=== PATIENT | female | born 1945 | race Caucasian/White ===

== ENCOUNTER 2018-02-11 17:58 | Inpatient (IN) | payer MEDICARE, MEDICAID ==
--- NOTE | 2018-02-11 19:49 | ED Physician Chart ---
ED Chief Complaint/HPI - Patient Information Date Seen:: 02/11/18 Time Seen:: 07:05 Chief Complaint:: PSYCH History of Present Illness:: 72 YR OLD FEMALE FROM COUNT INCLUDES THE [facility] FOR AGITATION HX OF SCHIZOAFFECTIVE DISORDER BIPOLAR TYPE Allergies:: Allergies Allergy/AdvReac Type Severity Reaction Status Date / Time No Known Allergies Allergy Verified 02/11/18 18:06 Vitals:: Vital Signs - 8 hr 02/11/18 18:06 Temp 99.0 F HR 110 RR 19 BP 112/80 O2 Sat % 97 Historian:: Medical Records ED Review of Systems - Review of Systems General/Constitutional: No fever Skin: No skin lesions Head: No headache Eyes: No loss of vision ENT: No earache Neck: No neck pain Cardio Vascular: No chest pain Pulmonary: No SOB GI: No vomiting G/U: No dysuria Supervisory Clerk: No abnormal vaginal bleed Musculoskeletal: No bone or joint pain Endocrine: No polyuria Psychiatric: Prior psych history Hematopoietic: Bruising, No bruising Allergic/Immuno: No urticaria Neurological: No syncope ED Past Medical History - Past Medical History Past Medical History: Thyroid disorder Family History: Heart disease Psychiatricy History: Depression, Schizophrenia, Bipolar Medication: Reviewed ED Physical Exam - Physical Examination General/Constitutional: Alert Head: Atraumatic Eyes: Lids, conjuctiva normal Skin: Nl inspection ENMT: External ears, nose nl Neck: Nontender Respiratory: Nl effort/Exclusion Cardio Vascular: RRR GI: No tenderness/rebounding/guarding : No CVA tenderness Extremities: No tenderness or effusion Other Neuro/Psych comments:: ALERT TO NAME DOES FOLLOW SOME COMMANDS LIKE LIFT ARMS LEGS Misc: Normal back ED Labs/Radiology/EKG Results - EKG Interpretations EKG Time:: 07:45 Rate & Rhythm: SINUS TACH 103 Brothers: OK Intervals: OK ED Assessment - Assessment General Assessment: PSYCHOSIS WITH AGITATION ED Septic Shock - . Is Septic Shock (SBP<90, OR Lactate>4 mmol\L) present?: No - <6hrs of presentation: Vital Signs: Vital Signs - 8 hr 02/11/18 18:06 Temp 99.0 F HR 110 RR 19 BP 112/80 O2 Sat % 97 ED Discharge Plan - Patient Disposition Admit/Discharge/Transfer: Acute Care w/in this hosp Instructions: Psychosis
[2018-02-11 20:11] LABS: % BASOPHILS 0.2 % (0.0-2.0); % EOSINOPHILS 0.7 % (0.0-5.0); % LYMPHOCYTES 16.6 % (20.0-50.0); % MONOCYTES 12.9 % (2.0-10.0); % NEUTROPHILS 69.6 % (40.0-80.0); EOSINOPHILE ABSOLUTE 0.1 Th/cmm (0.1-0.4); HEMATOCRIT 41.9 % (41.0-60); HEMOGLOBIN 14.4 gm/dL (12-16); LYMPHOCYTE ABSOLUTE 1.3 Th/cmm (1.5-3.0); MEAN CELL VOLUME 92.7 fl (81-100); MEAN CORPUSCULAR HEMOGLOBIN 31.8 pg (27.0-31.0); MEAN CORPUSCULAR HGB CONC 34.3 pg (28.0-36.0); MEAN PLATELET VOLUME 7.7 fl; NEUTROPHILE ABSOLUTE 5.5 Th/cmm (1.8-8.0); PLATELET COUNT 207 Th/cmm (150-400); RED BLOOD COUNT 4.52 Mil/cmm (3.80-5.20); RED CELL DISTRIBUTION WIDTH 12.8 % (11.5-20.0); WHITE BLOOD COUNT 7.9 Th/cmm (4.8-10.8)
[2018-02-11 20:27] LABS: ACETAMINOPHEN < 10.0 ug/mL (10.0-30.0); ALB/GLOB RATIO 1.3 (1.0-1.8); ALBUMIN 3.9 gm/dL (3.7-5.3); ALKALINE PHOSPHATASE 64 U/L (34-104); BILIRUBIN,TOTAL 0.3 mg/dL (0.3-1.0); BUN - UREA NITROGEN 33 mg/dL (7-25); CALCIUM SERUM 9.3 mg/dL (8.6-10.3); CARBON DIOXIDE 29.1 mEq/L (21.0-31.0); CHLORIDE 101 mEq/L (98-107); CREATININE - SERUM 0.8 mg/dL (0.6-1.2); GLUCOSE 97 mg/dL (70-105); POTASSIUM SERUM 4.1 mEq/L (3.5-5.1); SGOT 17 U/L (13-39); SGPT/ALT 15 U/L (7-52); SODIUM SERUM 137 mEq/L (136-145); TOTAL PROTEIN,SERUM 6.8 gm/dL (6.0-8.3)
[2018-02-11 20:33] LABS: SALICYLATES (ASPIRIN) < 25.0 mg/L (30.0-100.0)
[2018-02-11 21:58] VITALS: BP 150/85
[2018-02-11] MEDS ORDERED: Fleet Enema 135 mL RC PRN (22:04)
[2018-02-11] MEDS ORDERED: Magnesium Hydroxide (MOM) 30 mL UDC PO PRN (22:04)
--- NOTE | 2018-02-12 08:31 | Diagnostic Imaging Report ---
Portable chest x-ray HISTORY: Pain The heart appears enlarged. Atherosclerotic calcification seen through the aorta. No acute focal bony processes. Scoliosis and degenerative changes seen to the spine. IMPRESSION: 1. Allowing for a poor inspiration, no acute focal pulmonary processes 2. Cardiomegaly with atherosclerotic vascular changes
[2018-02-12] MEDS ORDERED: Non-Formulary Item 1 EA (Cranberry Fruit Extract [Cranberry] 425 MG) PO SCH (09:00)
[2018-02-12] MEDS: Levothyroxine 0.075 Mg Tab PO SCH (09:12)
[2018-02-12] MEDS: Multivitamin w/ Minerals Tab PO SCH (09:12)
[2018-02-12] MEDS ORDERED: Non-Formulary Item 1 EA (Melatonin [Melatonin] 3 MG) PO SCH (21:00)
--- NOTE | 2018-02-13 02:18 | Psychosocial Evaluation ---
DATE OF SERVICE: JUSTIFICATION FOR HOSPITALIZATION: The patient is confused, disoriented, agitation, history of schizoaffective, trying to disrobe. CHIEF COMPLAINT: "The food is wonderful here." HISTORY OF PRESENT ILLNESS: A 72-year-old female, apparent history of schizoaffective, confused, disoriented, not answering most questions, just ruminative about how good the food is. Staff noting she is trying to disrobe, poorly oriented, does not know where she is. She states she is here because "I was having problems with my emotions." The patient agitated, at times unruly requiring p.r.n. Ativan. Noted to be disruptive and aggressive at her place of residence. PAST PSYCHIATRIC HISTORY: Schizoaffective per documentation, possible history of dementia. FAMILY HISTORY: Noncontributory. SOCIAL HISTORY: The patient states that she was living in a [id number], but her address is currently noted to be in [place]. It is unclear what her social circumstances are, if there is any family involved. Unclear drugs, alcohol, or tobacco. Not answering most questions. MEDICAL HISTORY: Please see full H and P. MEDICATIONS: Noted including doses and frequencies. She is currently on Depakote and p.r.n. Ativan. MENTAL STATUS EXAMINATION: Stated age. Fair eye contact. Speech, decreased content. Disoriented. Mood "fine." Affect flat. Thought processes were disengaged disoriented. No overt SI or HI. No overt psychotic symptoms. The patient ruminative, however. Insight and judgment diminished. Poor impulse control. PROVISIONAL DIAGNOSIS: Schizoaffective disorder, unspecified; rule out dementia. Under medical, please see full H and P. Also, anxiety, unspecified. ESTIMATED LENGTH OF STAY: 5-7 days. ASSESSMENT: The patient requiring hospitalization, combative, disruptive, unruly, impulsive, unpredictable. PLAN: We will try to increase collateral. TREATMENT PLAN: Includes group as well as milieu therapy. CONDITIONS FOR DISCHARGE: Improved mood, improved affect, better control of any agitation, or combative symptoms. JOB# [id number]
[2018-02-13] MEDS: Levothyroxine 0.075 Mg Tab PO SCH (08:35)
[2018-02-13] MEDS: Multivitamin w/ Minerals Tab PO SCH (08:35)
--- NOTE | 2018-02-13 15:58 | General Progress Note ---
Subjective - Review of Systems Events since last encounter: patient is confused with h/o eschizophrenia Objective - Results Result Diagrams: 02/11/18 20:03 02/11/18 20:03 Recent Labs: Laboratory Last Values WBC 7.9 Th/cmm (4.8-10.8) 02/11/18 20:03 RBC 4.52 Mil/cmm (3.80-5.20) 02/11/18 20:03 Hgb 14.4 gm/dL (12-16) 02/11/18 20:03 Hct 41.9 % (41.0-60) 02/11/18 20:03 MCV 92.7 fl (81-100) 02/11/18 20:03 MCH 31.8 pg (27.0-31.0) H 02/11/18 20:03 MCHC Differential 34.3 pg (28.0-36.0) 02/11/18 20:03 RDW 12.8 % (11.5-20.0) 02/11/18 20:03 Plt Count 207 Th/cmm (150-400) 02/11/18 20:03 MPV 7.7 fl 02/11/18 20:03 Neutrophils % 69.6 % (40.0-80.0) 02/11/18 20:03 Lymphocytes % 16.6 % (20.0-50.0) L 02/11/18 20:03 Monocytes % 12.9 % (2.0-10.0) H 02/11/18 20:03 Eosinophils % 0.7 % (0.0-5.0) 02/11/18 20:03 Basophils % 0.2 % (0.0-2.0) 02/11/18 20:03 Sodium 137 mEq/L (136-145) 02/11/18 20:03 Potassium 4.1 mEq/L (3.5-5.1) 02/11/18 20:03 Chloride 101 mEq/L (98-107) 02/11/18 20:03 Carbon Dioxide 29.1 mEq/L (21.0-31.0) 02/11/18 20:03 Anion Gap 11.0 (7.0-16.0) 02/11/18 20:03 BUN 33 mg/dL (7-25) H 02/11/18 20:03 Creatinine 0.8 mg/dL (0.6-1.2) 02/11/18 20:03 Est GFR ( Amer) TNP 02/11/18 20:03 Est GFR (Non-Af Amer) TNP 02/11/18 20:03 BUN/Creatinine Ratio 41.3 02/11/18 20:03 Glucose 97 mg/dL (70-105) 02/11/18 20:03 Calcium 9.3 mg/dL (8.6-10.3) 02/11/18 20:03 Total Bilirubin 0.3 mg/dL (0.3-1.0) 02/11/18 20:03 AST 17 U/L (13-39) 02/11/18 20:03 ALT 15 U/L (7-52) 02/11/18 20:03 Alkaline Phosphatase 64 U/L (34-104) 02/11/18 20:03 Total Protein 6.8 gm/dL (6.0-8.3) 02/11/18 20:03 Albumin 3.9 gm/dL (3.7-5.3) 02/11/18 20:03 Globulin 2.9 gm/dL 02/11/18 20:03 Albumin/Globulin Ratio 1.3 (1.0-1.8) 02/11/18 20:03 Salicylates < 25.0 mg/L (30.0-100.0) L 02/11/18 20:03 Acetaminophen < 10.0 ug/mL (10.0-30.0) L 02/11/18 20:03 - Physical Exam Vitals and I&O: Vital Signs Temp 97.7 F 02/13/18 05:33 Pulse 67 02/13/18 08:34 Resp 19 02/13/18 05:33 BP 139/77 02/13/18 08:34 Pulse Ox 96 02/13/18 05:33 Intake & Output 02/12/18 02/13/18 02/13/18 18:59 06:59 18:59 Intake Total 1300 480 Balance 1300 480 Intake: Oral 1300 480 Other: # Voids 3 2 # Bowel Movements 0 Active Medications: Current Medications Acetaminophen (Tylenol) 650 mg PO Q6HR PRN PRN Reason: MILD PAIN Stop: 04/12/18 22:03 Bisacodyl (Dulcolax 10 Mg Supp) 10 mg RC DAILY PRN PRN Reason: IF MOM INEFFECTIVE Stop: 04/12/18 22:03 Brimonidine Tartrate (Alphagan 0.2% Ophth Soln) 1 drop EACH EYE BID [facility] Stop: 04/13/18 08:59 Last Admin: 02/12/18 17:02 Dose: 1 drop Cholecalciferol (Vitamin D3) 1,000 iu PO DAILY [facility] Stop: 04/13/18 08:59 Last Admin: 02/13/18 08:33 Dose: 1,000 iu Divalproex Sodium (Depakote Dr) 1,250 mg PO HS [facility]; Protocol Stop: 04/13/18 20:59 Last Admin: 02/12/18 20:38 Dose: 1,250 mg Docusate Sodium (Colace) 250 mg PO BID [facility] Stop: 04/13/18 08:59 Last Admin: 02/13/18 08:33 Dose: 250 mg Folic Acid (Folate) 1 mg PO DAILY [facility] Stop: 04/13/18 08:59 Last Admin: 02/13/18 08:33 Dose: 1 mg Hydroxyzine HCl (Atarax) 25 mg PO Q6HR PRN; Protocol PRN Reason: ITCHINESS Stop: 04/12/18 22:03 Latanoprost (Xalatan 0.005% Ophth Soln) 1 drop EACH EYE HS [facility] Stop: 04/13/18 20:59 Last Admin: 02/12/18 20:37 Dose: 1 drop Levothyroxine Sodium (Synthroid) 0.075 mg PO DAILY [facility] Stop: 04/13/18 08:59 Last Admin: 02/13/18 08:35 Dose: 0.075 mg Lisinopril (Zestril) 10 mg PO DAILY [facility] Stop: 04/13/18 08:59 Last Admin: 02/13/18 08:34 Dose: 10 mg Lorazepam (Ativan) 0.5 mg PO Q4HR PRN; Protocol PRN Reason: Anxiety Stop: 03/13/18 21:58 Last Admin: 02/13/18 08:32 Dose: 0.5 mg Magnesium Hydroxide (Milk Of Magnesia) 30 ml PO HS PRN PRN Reason: Constipation Stop: 04/12/18 22:03 Naproxen (Naprosyn) 500 mg PO Q6H PRN PRN Reason: MODERATE PAIN Stop: 04/12/18 22:03 Nitroglycerin (Nitrostat) 0.4 mg SL PRN PRN PRN Reason: CHEST PAIN X3 Stop: 04/12/18 22:03 Sodium Phosphate (Fleet Enema) 135 ml RC Q48H PRN PRN Reason: IF DULCOLAX INEFFECTIVE Stop: 04/12/18 22:03 Zolpidem Tartrate (Ambien) 5 mg PO HS PRN PRN Reason: Insomnia Stop: 04/12/18 21:58 Last Admin: 02/12/18 20:37 Dose: 5 mg Assessment/Plan - Problem List Patient Problems: All Active Problems AGGRESSIVE AND DISRUPTIVE BEHAVIOR (Acute)
--- NOTE | 2018-02-13 16:35 | History & Physical ---
ADMIT DATE: 02/12/2018 HISTORY OF PRESENT ILLNESS: This is a 72-year-old female ____ patient, having lot of agitation. The patient is known to have history of schizoaffective disorder, was brought to the ER and was admitted from [facility]. REVIEW OF SYSTEMS: No fever, no chills, no headache. Systems review is negative. PAST MEDICAL HISTORY: Thyroid disorder, depression, schizophrenia, and bipolar disorder. PHYSICAL EXAMINATION: GENERAL: Alert and oriented. HEAD: Normal. ENT: Normal. NECK: Supple, nontender. LUNGS: Clear. CARDIOVASCULAR SYSTEM: S1, S2 heard. ABDOMEN: Soft. Bowel sounds are heard. CENTRAL NERVOUS SYSTEM: Grossly normal. DIAGNOSTIC DATA: EKG showed sinus tachycardia. DIAGNOSES: Acute agitation, history of thyroid disorder, history of depression, history of schizoaffective disorder. PLAN: The patient was admitted and I will follow the patient medically and I am going to go ahead and continue her Tylenol, Dulcolax, and vitamin 3 and clonidine p.r.n. dosage. JOB# [id number]
[2018-02-14] MEDS: Multivitamin w/ Minerals Tab PO SCH (09:59)
[2018-02-14] MEDS: Levothyroxine 0.075 Mg Tab PO SCH (09:59)
--- NOTE | 2018-02-14 10:43 | General Progress Note ---
Subjective - Review of Systems Events since last encounter: 72 year old female awake and alert. patient h/o schizophrenia depression Objective - Results Result Diagrams: 02/11/18 20:03 02/11/18 20:03 Recent Labs: Laboratory Last Values WBC 7.9 Th/cmm (4.8-10.8) 02/11/18 20:03 RBC 4.52 Mil/cmm (3.80-5.20) 02/11/18 20:03 Hgb 14.4 gm/dL (12-16) 02/11/18 20:03 Hct 41.9 % (41.0-60) 02/11/18 20:03 MCV 92.7 fl (81-100) 02/11/18 20:03 MCH 31.8 pg (27.0-31.0) H 02/11/18 20:03 MCHC Differential 34.3 pg (28.0-36.0) 02/11/18 20:03 RDW 12.8 % (11.5-20.0) 02/11/18 20:03 Plt Count 207 Th/cmm (150-400) 02/11/18 20:03 MPV 7.7 fl 02/11/18 20:03 Neutrophils % 69.6 % (40.0-80.0) 02/11/18 20:03 Lymphocytes % 16.6 % (20.0-50.0) L 02/11/18 20:03 Monocytes % 12.9 % (2.0-10.0) H 02/11/18 20:03 Eosinophils % 0.7 % (0.0-5.0) 02/11/18 20:03 Basophils % 0.2 % (0.0-2.0) 02/11/18 20:03 Sodium 137 mEq/L (136-145) 02/11/18 20:03 Potassium 4.1 mEq/L (3.5-5.1) 02/11/18 20:03 Chloride 101 mEq/L (98-107) 02/11/18 20:03 Carbon Dioxide 29.1 mEq/L (21.0-31.0) 02/11/18 20:03 Anion Gap 11.0 (7.0-16.0) 02/11/18 20:03 BUN 33 mg/dL (7-25) H 02/11/18 20:03 Creatinine 0.8 mg/dL (0.6-1.2) 02/11/18 20:03 Est GFR ( Amer) TNP 02/11/18 20:03 Est GFR (Non-Af Amer) TNP 02/11/18 20:03 BUN/Creatinine Ratio 41.3 02/11/18 20:03 Glucose 97 mg/dL (70-105) 02/11/18 20:03 Calcium 9.3 mg/dL (8.6-10.3) 02/11/18 20:03 Total Bilirubin 0.3 mg/dL (0.3-1.0) 02/11/18 20:03 AST 17 U/L (13-39) 02/11/18 20:03 ALT 15 U/L (7-52) 02/11/18 20:03 Alkaline Phosphatase 64 U/L (34-104) 02/11/18 20:03 Total Protein 6.8 gm/dL (6.0-8.3) 02/11/18 20:03 Albumin 3.9 gm/dL (3.7-5.3) 02/11/18 20:03 Globulin 2.9 gm/dL 02/11/18 20:03 Albumin/Globulin Ratio 1.3 (1.0-1.8) 02/11/18 20:03 Salicylates < 25.0 mg/L (30.0-100.0) L 02/11/18 20:03 Acetaminophen < 10.0 ug/mL (10.0-30.0) L 02/11/18 20:03 - Physical Exam Vitals and I&O: Vital Signs Temp 98.9 F 02/13/18 18:12 Pulse 70 02/14/18 09:58 Resp 19 02/13/18 18:12 BP 112/62 02/14/18 09:58 Pulse Ox 96 02/13/18 18:12 Active Medications: Current Medications Acetaminophen (Tylenol) 650 mg PO Q6HR PRN PRN Reason: MILD PAIN Stop: 04/12/18 22:03 Aripiprazole (Abilify) 5 mg PO DAILY [facility]; Protocol Stop: 04/15/18 08:59 Last Admin: 02/14/18 09:59 Dose: Not Given Bisacodyl (Dulcolax 10 Mg Supp) 10 mg RC DAILY PRN PRN Reason: IF MOM INEFFECTIVE Stop: 04/12/18 22:03 Brimonidine Tartrate (Alphagan 0.2% Ophth Soln) 1 drop EACH EYE BID [facility] Stop: 04/13/18 08:59 Last Admin: 02/14/18 09:59 Dose: Not Given Cholecalciferol (Vitamin D3) 1,000 iu PO DAILY [facility] Stop: 04/13/18 08:59 Last Admin: 02/14/18 09:58 Dose: 1,000 iu Divalproex Sodium (Depakote Dr) 1,250 mg PO HS [facility]; Protocol Stop: 04/13/18 20:59 Last Admin: 02/13/18 20:37 Dose: 1,250 mg Docusate Sodium (Colace) 250 mg PO BID [facility] Stop: 04/13/18 08:59 Last Admin: 02/14/18 09:58 Dose: 250 mg Folic Acid (Folate) 1 mg PO DAILY [facility] Stop: 04/13/18 08:59 Last Admin: 02/14/18 09:58 Dose: 1 mg Hydroxyzine HCl (Atarax) 25 mg PO Q6HR PRN; Protocol PRN Reason: ITCHINESS Stop: 04/12/18 22:03 Latanoprost (Xalatan 0.005% Ophth Soln) 1 drop EACH EYE HS [facility] Stop: 04/13/18 20:59 Last Admin: 02/13/18 20:39 Dose: 1 drop Levothyroxine Sodium (Synthroid) 0.075 mg PO DAILY [facility] Stop: 04/13/18 08:59 Last Admin: 02/14/18 09:59 Dose: 0.075 mg Lisinopril (Zestril) 10 mg PO DAILY [facility] Stop: 04/13/18 08:59 Last Admin: 02/14/18 09:58 Dose: 10 mg Lorazepam (Ativan) 0.5 mg PO Q4HR PRN; Protocol PRN Reason: Anxiety Stop: 03/13/18 21:58 Last Admin: 02/14/18 02:49 Dose: 0.5 mg Magnesium Hydroxide (Milk Of Magnesia) 30 ml PO HS PRN PRN Reason: Constipation Stop: 04/12/18 22:03 Naproxen (Naprosyn) 500 mg PO Q6H PRN PRN Reason: MODERATE PAIN Stop: 04/12/18 22:03 Nitroglycerin (Nitrostat) 0.4 mg SL PRN PRN PRN Reason: CHEST PAIN X3 Stop: 04/12/18 22:03 Sodium Phosphate (Fleet Enema) 135 ml RC Q48H PRN PRN Reason: IF DULCOLAX INEFFECTIVE Stop: 04/12/18 22:03 Zolpidem Tartrate (Ambien) 5 mg PO HS PRN PRN Reason: Insomnia Stop: 04/12/18 21:58 Last Admin: 02/13/18 20:38 Dose: 5 mg General: Alert, No acute distress HEENT: Atraumatic Neck: Supple Cardiovascular: Regular rate, Normal S1, Normal S2 Lungs: Clear to auscultation, Other Abdomen: Bowel sounds Extremities: no Clubbing Neurological: Normal gait Psych/Mental Status: Other (depressed ) Assessment/Plan - Problem List Patient Problems: All Active Problems AGGRESSIVE AND DISRUPTIVE BEHAVIOR (Acute) Bipolar 1 disorder (Acute) F31.9 Depression (Acute) F32.9 Schizo affective schizophrenia (Acute) F25.0 Thyroid disorder (Acute) - Plan Plan: monitor vitals diet labs as per psych
[2018-02-14] MEDS ORDERED: Haloperidol Lactate 5 mg/mL 1mL Vial IM ONE (16:41)
[2018-02-14] MEDS ORDERED: Haloperidol Lactate 5 mg/mL 1mL Vial ONE (16:50)
--- NOTE | 2018-02-14 18:36 | Progress Notes ---
DATE: 02/13/2018 SUBJECTIVE: Chart reviewed and the patient interviewed. Also discussed the patient's condition with the staff and reviewed the records and labs. The patient continued to be confused and she is still easily agitated and is still verbally abusive to staff. She also still has episodes of yelling and screaming with difficulty to follow staff directions and not easy to calm her down. The patient also is still aggressive with the staff, especially during helping her with her ADLs with similar behavior to what she was doing at the residence where she was living before. The patient also is forgetful and still needs lots of redirections. ASSESSMENT: The patient is still psychotic. TREATMENT PLAN: Continue to monitor her behavior and her condition closely. Also, continue Depakote in a dose of 1250 mg everyday. Also, continue to work on her poor impulse control and her irritable and aggressive behavior. Also, considering use of antipsychotic medications. JOB# [id number]
[2018-02-15] MEDS: Multivitamin w/ Minerals Tab PO SCH (09:53)
[2018-02-15] MEDS: Levothyroxine 0.075 Mg Tab PO SCH (09:53)
--- NOTE | 2018-02-15 12:09 | Progress Notes ---
DATE: 02/15/2018 Case was discussed with staff of the patient, reviewed records. This is a 72-year-old female with a history of schizoaffective disorder, has been very confused, disoriented, not answering questions unpredictable, impulsive, needing redirection. She has been biting staff. She has poor insight, demented, confused. She is on Abilify 5 mg daily that was increased yesterday. She is on Depakote 1250 mg at bedtime and Haldol at times when she gets agitated, very poor insight, unable to participate in meaningful conversation or make safe plan for self-care, very poor insight. We will continue the patient in group therapy, milieu therapy, and adjust medications as needed. [facility]# [id number]
[2018-02-15] MEDS: DIVALPROEX PO SCH (21:46)
--- NOTE | 2018-02-16 00:06 | Progress Notes ---
DATE: 02/14/2018 SUBJECTIVE: Chart reviewed and the patient interviewed. Also discussed the patient's condition with the staff and reviewed records and labs. The patient did not sleep almost the last night and only slept about 3 hours according to staff. The patient also continued to be delusional and paranoid and in irritable mood. The patient has been abusive verbally to staff. Also, has not been able to follow staff direction and gets easily agitated when staff tries to redirect her. The patient also continues to be delusional and in irritable mood with severe mood swings. The patient also during interview has disorganized thoughts and unable to carry on coherent conversation. ASSESSMENT: The patient is still psychotic and unable to care for self and easily agitated. TREATMENT PLAN: Continue Depakote 1250 mg every day. Also, we will add Abilify 5 mg everyday and we will continue to monitor her behavior and condition closely. JOB# [id number]
[2018-02-16] MEDS: Levothyroxine 0.075 Mg Tab PO SCH (10:00)
[2018-02-16] MEDS: Multivitamin w/ Minerals Tab PO SCH (10:00)
--- NOTE | 2018-02-16 16:23 | Internal Medicine Prog Note ---
Internal Medicine Subjective - Subjective Service Date: 02/16/18 Internal Medicine Objective - Results Result Diagrams: 02/11/18 20:03 02/11/18 20:03 Recent Labs: Laboratory Last Values WBC 7.9 Th/cmm (4.8-10.8) 02/11/18 20:03 RBC 4.52 Mil/cmm (3.80-5.20) 02/11/18 20:03 Hgb 14.4 gm/dL (12-16) 02/11/18 20:03 Hct 41.9 % (41.0-60) 02/11/18 20:03 MCV 92.7 fl (81-100) 02/11/18 20:03 MCH 31.8 pg (27.0-31.0) H 02/11/18 20:03 MCHC Differential 34.3 pg (28.0-36.0) 02/11/18 20:03 RDW 12.8 % (11.5-20.0) 02/11/18 20:03 Plt Count 207 Th/cmm (150-400) 02/11/18 20:03 MPV 7.7 fl 02/11/18 20:03 Neutrophils % 69.6 % (40.0-80.0) 02/11/18 20:03 Lymphocytes % 16.6 % (20.0-50.0) L 02/11/18 20:03 Monocytes % 12.9 % (2.0-10.0) H 02/11/18 20:03 Eosinophils % 0.7 % (0.0-5.0) 02/11/18 20:03 Basophils % 0.2 % (0.0-2.0) 02/11/18 20:03 Sodium 137 mEq/L (136-145) 02/11/18 20:03 Potassium 4.1 mEq/L (3.5-5.1) 02/11/18 20:03 Chloride 101 mEq/L (98-107) 02/11/18 20:03 Carbon Dioxide 29.1 mEq/L (21.0-31.0) 02/11/18 20:03 Anion Gap 11.0 (7.0-16.0) 02/11/18 20:03 BUN 33 mg/dL (7-25) H 02/11/18 20:03 Creatinine 0.8 mg/dL (0.6-1.2) 02/11/18 20:03 Est GFR ( Amer) TNP 02/11/18 20:03 Est GFR (Non-Af Amer) TNP 02/11/18 20:03 BUN/Creatinine Ratio 41.3 02/11/18 20:03 Glucose 97 mg/dL (70-105) 02/11/18 20:03 Calcium 9.3 mg/dL (8.6-10.3) 02/11/18 20:03 Total Bilirubin 0.3 mg/dL (0.3-1.0) 02/11/18 20:03 AST 17 U/L (13-39) 02/11/18 20:03 ALT 15 U/L (7-52) 02/11/18 20:03 Alkaline Phosphatase 64 U/L (34-104) 02/11/18 20:03 Total Protein 6.8 gm/dL (6.0-8.3) 02/11/18 20:03 Albumin 3.9 gm/dL (3.7-5.3) 02/11/18 20:03 Globulin 2.9 gm/dL 02/11/18 20:03 Albumin/Globulin Ratio 1.3 (1.0-1.8) 02/11/18 20:03 Salicylates < 25.0 mg/L (30.0-100.0) L 02/11/18 20:03 Acetaminophen < 10.0 ug/mL (10.0-30.0) L 02/11/18 20:03 - Physical Exam Vitals and I&O: Vital Signs Temp 97.1 F 02/16/18 15:13 Pulse 91 02/16/18 15:13 Resp 21 02/16/18 15:13 BP 151/74 02/16/18 15:13 Pulse Ox 99 02/16/18 15:13 Intake & Output 02/15/18 02/16/18 02/16/18 18:59 06:59 18:59 Intake Total 1300 660 Balance 1300 660 Intake: Oral 1300 660 Other: # Voids 3 2 # Bowel Movements 1 Active Medications: Current Medications Acetaminophen (Tylenol) 650 mg PO Q6HR PRN PRN Reason: MILD PAIN Stop: 04/12/18 22:03 Aripiprazole (Abilify) 5 mg PO DAILY [facility]; Protocol Stop: 04/15/18 08:59 Last Admin: 02/16/18 10:00 Dose: 5 mg Bisacodyl (Dulcolax 10 Mg Supp) 10 mg RC DAILY PRN PRN Reason: IF MOM INEFFECTIVE Stop: 04/12/18 22:03 Brimonidine Tartrate (Alphagan 0.2% Ophth Soln) 1 drop EACH EYE BID [facility] Stop: 04/13/18 08:59 Last Admin: 02/16/18 09:58 Dose: 1 drop Cholecalciferol (Vitamin D3) 1,000 iu PO DAILY [facility] Stop: 04/13/18 08:59 Last Admin: 02/16/18 09:58 Dose: 1,000 iu Divalproex Sodium 1,000 mg/ (Divalproex Sodium 250 mg) 1,250 mg PO HS [facility] Stop: 04/16/18 20:59 Last Admin: 02/15/18 21:46 Dose: 1,250 mg Docusate Sodium (Colace) 250 mg PO BID [facility] Stop: 04/13/18 08:59 Last Admin: 02/16/18 09:58 Dose: 250 mg Folic Acid (Folate) 1 mg PO DAILY [facility] Stop: 04/13/18 08:59 Last Admin: 02/16/18 09:59 Dose: 1 mg Hydroxyzine HCl (Atarax) 25 mg PO Q6HR PRN; Protocol PRN Reason: ITCHINESS Stop: 04/12/18 22:03 Latanoprost (Xalatan 0.005% Ophth Soln) 1 drop EACH EYE HS [facility] Stop: 04/13/18 20:59 Last Admin: 02/15/18 21:46 Dose: 1 drop Levothyroxine Sodium (Synthroid) 0.075 mg PO DAILY [facility] Stop: 04/13/18 08:59 Last Admin: 02/16/18 10:00 Dose: 0.075 mg Lisinopril (Zestril) 10 mg PO DAILY [facility] Stop: 04/13/18 08:59 Last Admin: 02/16/18 10:00 Dose: 10 mg Lorazepam (Ativan) 0.5 mg PO Q4HR PRN; Protocol PRN Reason: Anxiety Stop: 03/13/18 21:58 Last Admin: 02/14/18 02:49 Dose: 0.5 mg Magnesium Hydroxide (Milk Of Magnesia) 30 ml PO HS PRN PRN Reason: Constipation Stop: 04/12/18 22:03 Naproxen (Naprosyn) 500 mg PO Q6H PRN PRN Reason: MODERATE PAIN Stop: 04/12/18 22:03 Nitroglycerin (Nitrostat) 0.4 mg SL PRN PRN PRN Reason: CHEST PAIN X3 Stop: 04/12/18 22:03 Sodium Phosphate (Fleet Enema) 135 ml RC Q48H PRN PRN Reason: IF DULCOLAX INEFFECTIVE Stop: 04/12/18 22:03 Zolpidem Tartrate (Ambien) 5 mg PO HS PRN PRN Reason: Insomnia Stop: 04/12/18 21:58 Last Admin: 02/15/18 21:46 Dose: 5 mg Internal Medicine Assmt/Plan - Assessment Assessment: AGGRESSIVE AND DISRUPTIVE BEHAVIOR (Acute) Bipolar 1 disorder (Acute) F31.9 Depression (Acute) F32.9 Schizo affective schizophrenia (Acute) F25.0 Thyroid disorder (Acute) - Plan Plan: continue current plan of care Nutritional Asmnt/Malnutr-PDOC - Dietary Evaluation Malnutrition Findings (Please click <Entered> for more info): Nutritional Asmnt/Malnutrition Start: 02/15/18 18: 23 Text: Status: Complete Freq: Protocol: Document 02/15/18 18:23 LCLEBRONG (Rec: 02/15/18 18:34 LEBRONG [email or web address]) Nutritional Asmnt/Malnutrition Patient General Information Nutritional Screening Moderate Risk Diagnosis psychosis NOS Pertinent Medical Hx/Surgical Hx schizoaffective disorder, thyroid disorder, depression, bipolar Subjective Information Pt seen sitting in kiah-chair in hallway. Pt stated good appetite, food is good. Per EMR, PO intake 75-100%. Current Diet Order/ Nutrition Support JAQUELINE, low fat, small portion Pertinent Medications Vit D3, colace, folate, synthroid Pertinent Labs 02/11 BUN 33 Nutritional Hx/Data Height 5 ft 2 in Height (Calculated Centimeters) 157.5 Current Weight (lbs) 135 lb Weight (Calculated Kilograms) 61.2 Weight (Calculated Grams) 00112.0 [place] Body Weight 120 Body Mass Index (BMI) 24.7 Weight Status Approriate GI Symptoms GI Symptoms None Last BM none Difficult in: None Skin Integrity/Comment: bruise Current %PO Good (75-100%) Estimated Nutritional Goals BEE in Kcals: Using Current wt Calories/Kcals/Kg 25-30 Kcals Calculated 9602-2890 Protein: Using Current wt Protein g/k.8 Protein Calculated 48 Fluid: ml 1525-1830ml (1ml/kcal) Nutritional Problem No current Nutrition Prob Problem N/A Malnutrition Alert Is there a minimum of two criteria No selected? Query Text:Check all the applicable criteria. A minimum of two criteria are recommended for diagnosis of either severe or non-severe malnutrition. Malnutrition Related to Morbid Obesity Malnutrition related to morbid obesity No Intervention/Recommendation Comments 1. Continue with current diet as ordered. 2. Monitor PO intake, wt, labs and skin integrity 3. F/U as low risk in 7 days, 68 Expected Outcomes/Goals Expected Outcomes/Goals 1. PO intake to meet at least 75% of nutritional needs. 2. Wt stability, skin to remain intact, labs to approach WNL.
--- NOTE | 2018-02-16 19:44 | Progress Notes ---
DATE: 02/16/2018 SUBJECTIVE: The patient noted to be in the hospital, confused, disoriented, agitated, attempting to disrobe. The patient is irritable on exam. Not answering most questions, still ruminative. Dr. Anna is seeing the patient over the past few days, noting she remains impulsive, unpredictable, needing redirection, had been trying to bite staff, noted to be confused, disoriented, still gets agitated at times, not really participant in any meaningful conversation. Poor insight. The patient not wanting to answer any of my questions on exam, stating she wants to go home. ASSESSMENT: The patient remains agitated, disoriented, still with bouts of confusion. PLAN: We will continue to monitor, given ongoing symptoms, she is not safe for discharge. Still with noted episodes of spitting on the staff, hitting, biting, kicking. We will continue to monitor and follow up. JOB# [id number]
[2018-02-16] MEDS: DIVALPROEX PO SCH (20:49)
--- NOTE | 2018-02-17 09:30 | Progress Notes ---
DATE: 02/17/2018 SUBJECTIVE: The patient admitted to the hospital, agitated, still disrobing, confused, mumbling on exam, internally preoccupied, highly impulsive, unpredictable. She did sleep well last night, but poorly oriented, highly unpredictable as noted. Staff trying to put clothes back on her, remains labile. Medications were noted including doses and frequencies. The patient does require prompting to eat. ASSESSMENT: The patient remains symptomatic, highly impulsive, and unpredictable. PLAN: We will continue to monitor. I will be increasing her dosing of Abilify to try to adjust her irrational and currently psychotic behaviors. We will monitor and follow up. JOB# [id number]
[2018-02-17] MEDS: Levothyroxine 0.075 Mg Tab PO SCH (10:11)
[2018-02-17] MEDS: Multivitamin w/ Minerals Tab PO SCH (10:11)
--- NOTE | 2018-02-17 10:12 | General Progress Note ---
Subjective - Review of Systems Events since last encounter: patient awake in no distress irritable, unpredictable Objective - Results Result Diagrams: 02/11/18 20:03 02/11/18 20:03 Recent Labs: Laboratory Last Values WBC 7.9 Th/cmm (4.8-10.8) 02/11/18 20:03 RBC 4.52 Mil/cmm (3.80-5.20) 02/11/18 20:03 Hgb 14.4 gm/dL (12-16) 02/11/18 20:03 Hct 41.9 % (41.0-60) 02/11/18 20:03 MCV 92.7 fl (81-100) 02/11/18 20:03 MCH 31.8 pg (27.0-31.0) H 02/11/18 20:03 MCHC Differential 34.3 pg (28.0-36.0) 02/11/18 20:03 RDW 12.8 % (11.5-20.0) 02/11/18 20:03 Plt Count 207 Th/cmm (150-400) 02/11/18 20:03 MPV 7.7 fl 02/11/18 20:03 Neutrophils % 69.6 % (40.0-80.0) 02/11/18 20:03 Lymphocytes % 16.6 % (20.0-50.0) L 02/11/18 20:03 Monocytes % 12.9 % (2.0-10.0) H 02/11/18 20:03 Eosinophils % 0.7 % (0.0-5.0) 02/11/18 20:03 Basophils % 0.2 % (0.0-2.0) 02/11/18 20:03 Sodium 137 mEq/L (136-145) 02/11/18 20:03 Potassium 4.1 mEq/L (3.5-5.1) 02/11/18 20:03 Chloride 101 mEq/L (98-107) 02/11/18 20:03 Carbon Dioxide 29.1 mEq/L (21.0-31.0) 02/11/18 20:03 Anion Gap 11.0 (7.0-16.0) 02/11/18 20:03 BUN 33 mg/dL (7-25) H 02/11/18 20:03 Creatinine 0.8 mg/dL (0.6-1.2) 02/11/18 20:03 Est GFR ( Amer) TNP 02/11/18 20:03 Est GFR (Non-Af Amer) TNP 02/11/18 20:03 BUN/Creatinine Ratio 41.3 02/11/18 20:03 Glucose 97 mg/dL (70-105) 02/11/18 20:03 Calcium 9.3 mg/dL (8.6-10.3) 02/11/18 20:03 Total Bilirubin 0.3 mg/dL (0.3-1.0) 02/11/18 20:03 AST 17 U/L (13-39) 02/11/18 20:03 ALT 15 U/L (7-52) 02/11/18 20:03 Alkaline Phosphatase 64 U/L (34-104) 02/11/18 20:03 Total Protein 6.8 gm/dL (6.0-8.3) 02/11/18 20:03 Albumin 3.9 gm/dL (3.7-5.3) 02/11/18 20:03 Globulin 2.9 gm/dL 02/11/18 20:03 Albumin/Globulin Ratio 1.3 (1.0-1.8) 02/11/18 20:03 Salicylates < 25.0 mg/L (30.0-100.0) L 02/11/18 20:03 Acetaminophen < 10.0 ug/mL (10.0-30.0) L 02/11/18 20:03 - Physical Exam Vitals and I&O: Vital Signs Temp 97.8 F 02/16/18 20:00 Pulse 88 02/16/18 20:00 Resp 18 02/16/18 20:00 BP 121/72 02/16/18 20:00 Pulse Ox 99 02/16/18 20:00 Intake & Output 02/16/18 02/17/18 02/17/18 18:59 06:59 18:59 Intake Total 1200 320 Balance 1200 320 Intake: Oral 1200 320 Other: # Voids 3 1 # Bowel Movements 1 Active Medications: Current Medications Acetaminophen (Tylenol) 650 mg PO Q6HR PRN PRN Reason: MILD PAIN Stop: 04/12/18 22:03 Aripiprazole (Abilify) 7.5 mg PO DAILY [facility]; Protocol Stop: 04/18/18 08:59 Bisacodyl (Dulcolax 10 Mg Supp) 10 mg RC DAILY PRN PRN Reason: IF MOM INEFFECTIVE Stop: 04/12/18 22:03 Brimonidine Tartrate (Alphagan 0.2% Ophth Soln) 1 drop EACH EYE BID DOMINIQUE Stop: 04/13/18 08:59 Last Admin: 02/16/18 18:00 Dose: Not Given Cholecalciferol (Vitamin D3) 1,000 iu PO DAILY [facility]IQUE Stop: 04/13/18 08:59 Last Admin: 02/16/18 09:58 Dose: 1,000 iu Divalproex Sodium 1,000 mg/ (Divalproex Sodium 250 mg) 1,250 mg PO HS [facility] Stop: 04/16/18 20:59 Last Admin: 02/16/18 20:49 Dose: 1,250 mg Docusate Sodium (Colace) 250 mg PO BID DOMINIQUE Stop: 04/13/18 08:59 Last Admin: 02/16/18 18:00 Dose: Not Given Folic Acid (Folate) 1 mg PO DAILY DOMINIQUE Stop: 04/13/18 08:59 Last Admin: 02/16/18 09:59 Dose: 1 mg Hydroxyzine HCl (Atarax) 25 mg PO Q6HR PRN; Protocol PRN Reason: ITCHINESS Stop: 04/12/18 22:03 Latanoprost (Xalatan 0.005% Ophth Soln) 1 drop EACH EYE HS [facility] Stop: 04/13/18 20:59 Last Admin: 02/16/18 20:49 Dose: 1 drop Levothyroxine Sodium (Synthroid) 0.075 mg PO DAILY [facility] Stop: 04/13/18 08:59 Last Admin: 02/16/18 10:00 Dose: 0.075 mg Lisinopril (Zestril) 10 mg PO DAILY [facility] Stop: 04/13/18 08:59 Last Admin: 02/16/18 10:00 Dose: 10 mg Lorazepam (Ativan) 0.5 mg PO Q4HR PRN; Protocol PRN Reason: Anxiety Stop: 03/13/18 21:58 Last Admin: 02/14/18 02:49 Dose: 0.5 mg Magnesium Hydroxide (Milk Of Magnesia) 30 ml PO HS PRN PRN Reason: Constipation Stop: 04/12/18 22:03 Naproxen (Naprosyn) 500 mg PO Q6H PRN PRN Reason: MODERATE PAIN Stop: 04/12/18 22:03 Nitroglycerin (Nitrostat) 0.4 mg SL PRN PRN PRN Reason: CHEST PAIN X3 Stop: 04/12/18 22:03 Sodium Phosphate (Fleet Enema) 135 ml RC Q48H PRN PRN Reason: IF DULCOLAX INEFFECTIVE Stop: 04/12/18 22:03 Zolpidem Tartrate (Ambien) 5 mg PO HS PRN PRN Reason: Insomnia Stop: 04/12/18 21:58 Last Admin: 02/16/18 20:49 Dose: 5 mg General: Alert, No acute distress HEENT: Atraumatic Neck: Supple Cardiovascular: Regular rate, Normal S1, Normal S2 Lungs: Clear to auscultation, Other Abdomen: Bowel sounds Extremities: no Clubbing Neurological: Normal gait Psych/Mental Status: Other (depressed ) Assessment/Plan - Problem List Patient Problems: All Active Problems AGGRESSIVE AND DISRUPTIVE BEHAVIOR (Acute) Bipolar 1 disorder (Acute) F31.9 Depression (Acute) F32.9 Schizo affective schizophrenia (Acute) F25.0 Thyroid disorder (Acute) - Plan Plan: monitor vitals diet labs as per psych Nutritional Asmnt/Malnutr-PDOC - Dietary Evaluation Malnutrition Findings (Please click <Entered> for more info): Nutritional Asmnt/Malnutrition Start: 02/15/18 18: 23 Text: Status: Complete Freq: Protocol: Document 02/15/18 18:23 LCHENG (Rec: 02/15/18 18:34 LCLEBRONG [id number]) Nutritional Asmnt/Malnutrition Patient General Information Nutritional Screening Moderate Risk Diagnosis psychosis NOS Pertinent Medical Hx/Surgical Hx schizoaffective disorder, thyroid disorder, depression, bipolar Subjective Information Pt seen sitting in kiah-chair in hallway. Pt stated good appetite, food is good. Per EMR, PO intake 75-100%. Current Diet Order/ Nutrition Support JAQUELINE, low fat, small portion Pertinent Medications Vit D3, colace, folate, synthroid Pertinent Labs 02/11 BUN 33 Nutritional Hx/Data Height 1.57 m Height (Calculated Centimeters) 157.5 Current Weight (lbs) 61.235 kg Weight (Calculated Kilograms) 61.2 Weight (Calculated Grams) 61049.0 [place] Body Weight 120 Body Mass Index (BMI) 24.7 Weight Status Approriate GI Symptoms GI Symptoms None Last BM none Difficult in: None Skin Integrity/Comment: bruise Current %PO Good (75-100%) Estimated Nutritional Goals BEE in Kcals: Using Current wt Calories/Kcals/Kg 25-30 Kcals Calculated 1320-0188 Protein: Using Current wt Protein g/k.8 Protein Calculated 48 Fluid: ml 1525-1830ml (1ml/kcal) Nutritional Problem No current Nutrition Prob Problem N/A Malnutrition Alert Is there a minimum of two criteria No selected? Query Text:Check all the applicable criteria. A minimum of two criteria are recommended for diagnosis of either severe or non-severe malnutrition. Malnutrition Related to Morbid Obesity Malnutrition related to morbid obesity No Intervention/Recommendation Comments 1. Continue with current diet as ordered. 2. Monitor PO intake, wt, labs and skin integrity 3. F/U as low risk in 7 days, 6/8 Expected Outcomes/Goals Expected Outcomes/Goals 1. PO intake to meet at least 75% of nutritional needs. 2. Wt stability, skin to remain intact, labs to approach WNL.
[2018-02-17] MEDS: DIVALPROEX PO SCH (21:00)
[2018-02-18] MEDS: Levothyroxine 0.075 Mg Tab PO SCH (08:47)
[2018-02-18] MEDS: Multivitamin w/ Minerals Tab PO SCH (08:47)
[2018-02-18] MEDS: DIVALPROEX PO SCH (21:36)
[2018-02-19] MEDS: Levothyroxine 0.075 Mg Tab PO SCH (09:09)
[2018-02-19] MEDS: Multivitamin w/ Minerals Tab PO SCH (09:13)
--- NOTE | 2018-02-19 19:35 | Progress Notes ---
DATE: 02/18/2018 Chart reviewed and the patient interviewed. Also, discussed the patient's condition with the staff and reviewed records and labs. The patient continued to be disorganized and is still suspicious and paranoid. The patient also is actively hallucinating and she is talking to herself. The patient also is suspicious and paranoid. On the other hand, the patient is compliant with taking her medication and she is able to follow directions. Also, no side effects of medications. ASSESSMENT: The patient is still confused and psychotic. TREATMENT PLAN: Continue to monitor her behavior and her condition closely and we will continue to work on her confusion and adjust psychotropic medications. JOB# [id number]
--- NOTE | 2018-02-20 04:56 | Progress Notes ---
DATE: 02/19/2018 SUBJECTIVE: Chart reviewed and the patient interviewed. Also, discussed the patient's condition with the staff and reviewed records and labs. The patient is still restless and still has episodes of trying to take off her gown, in front of everybody. The patient also still has difficulty following staff directions and she is still having episodes of impulsivity and agitation. On the other hand, the patient seems to be calmer than before and she is compliant with taking her medications with no side effects of medications. ASSESSMENT: The patient is still psychotic, but showing some improvement. TREATMENT PLAN: We will increase Abilify to 10 mg every day. Also, continue to work on behavioral modifications and/or impulsivity and we will continue to follow up. Also, we will work with case fitter in regard to discharge plans and placement issue. JOB# [id number]
== END 2018-02-19 18:00 | DRG 885 ==
LOC: ER 17:58 → GERO2 21:04
PROVIDERS: ADMIT Psychiatry & Neurology Psychiatry; ATTEND Psychiatry & Neurology Psychiatry
DX: F25.9 Schizoaffective disorder, unspecified (principal); F03.90 Unspecified dementia, unspecified severity, without behavioral disturbance, psychotic disturbance, mood disturbance, and anxiety; F41.9 Anxiety disorder, unspecified; E07.9 Disorder of thyroid, unspecified
CPT/HCPCS: 36415-UA; 71045-TC; 80053-TC; 80329-TC; 85025-TC; 93005; J1200; J1630; J2060

== ENCOUNTER 2018-03-26 10:59 | Inpatient (IN) | payer MEDICARE, MEDICAID ==
--- NOTE | 2018-03-26 11:19 | ED Physician Chart ---
ED Chief Complaint/HPI - Patient Information Date Seen:: 03/26/18 Time Seen:: 11:05 Chief Complaint:: agitation and combativeness History of Present Illness:: Patient has reportedly been increasingly agitated and combative at her alf facility since yesterday. Allergies:: Allergies Allergy/AdvReac Type Severity Reaction Status Date / Time No Known Allergies Allergy Verified 02/11/18 18:06 Historian:: EMS Review:: Transfer documents Reviewed ED Review of Systems - Review of Systems General/Constitutional: No fever, No chills, No weight loss, No weakness, No diaphoresis, No edema, No loss of appetite Skin: No skin lesions, No rash, No bruising Head: No headache, No light-headedness Eyes: No loss of vision, No pain, No diplopia ENT: No earache, No nasal drainage, No sore throat, No tinnitus Neck: No neck pain, No swelling, No thyromegaly, No stiffness, No mass noted Cardio Vascular: No chest pain, No palpitations, No PND, No orthopnea, No edema Pulmonary: No SOB, No cough, No sputum, No wheezing GI: No nausea, No vomiting, No diarrhea, No pain, No melena, No hematochezia, No constipation, No hematemesis G/U: No dysuria, No frequency, No hematuria Musculoskeletal: No bone or joint pain, No back pain, No muscle pain Endocrine: No polyuria, No polydipsia Hematopoietic: No bruising, No lymphadenopathy Allergic/Immuno: No urticaria, No angioedema Neurological: No syncope, No focal symptoms, No weakness, No paresthesia, No headache, No seizure, No dizziness, No confusion, No vertigo ED Past Medical History - Past Medical History Past Medical History: HTN, CVA/TIA, Thyroid disorder, Other (schizoaffective disorder; bipolar; major depression; peripheral thyroidism; glaucoma; seizures) Family History: Other (unavailable) Social History: Care Facility Surgical History: other (dental surgery) Psychiatricy History: Depression, Bipolar Medication: Reviewed Family Medical History - Family Member Mother History Unknown: Yes Ethnicity: Unknown Living Status: Unknown Hx Family Cancer: (unknown) Hx Family Coronary Artery Disease: (unknown) Hx Family Congestive Heart Failure: (unknown) Hx Family Hypertension: (unknown) Hx Family Stroke: (unknown) Hx Family Diabetes: (unknown) Hx Family Seizures: (unknown) Hx Family Dementia: (unknown) Hx Family AIDS: (unknown) Hx Family HIV: No Hx Family COPD: (unknown) Hx Family Hepatitis: (unknown) Hx Family Psychiatric Problems: (unknown) Hx Family Tuberculosis: (unknown) ED Physical Exam - Physical Examination General/Constitutional: Awake, Well-developed, well-nourished, Alert, No distress, Non-toxic appearing, Ambulatory Other Gen/Cons comments:: Patient is confused; she states the year is 60 Head: Atraumatic Eyes: Lids, conjuctiva normal, PERRL, EOMI Skin: Nl inspection, No rash, No skin lesions, No ecchymosis, Well hydrated, No lymphadenopathy ENMT: External ears, nose nl, Nasal exam nl, Lips, teeth, gums nl Neck: Nontender, Full ROM w/o pain, No JVD, No nuchal rigidity, No bruit, No mass, No stridor Respiratory: Nl effort/Exclusion, Clear to Auscultation, No Wheeze/Rhonchi/Rales Cardio Vascular: RRR, No murmur, gallop, rubs, NL S1 S2 GI: No tenderness/rebounding/guarding, No organomegaly, No hernia, Normal BS's, Nondistended, No mass/bruits, No McBurney tenderness : No CVA tenderness Extremities: No tenderness or effusion, Full ROM, normal strength in all extremities, No edema, Normal digits & nails Neuro/Psych: Alert/oriented, DTR's symmetric, Normal sensory exam, Normal motor strength, Judgement/insight normal, Mood normal, Normal gait, No focal deficits Misc: Normal back, No paraspinal tenderness ED Labs/Radiology/EKG Results - Lab Results Results: Laboratory Results - last 24 hr 03/26/18 03/26/18 03/26/18 11:25 11:25 11:44 WBC 6.5 RBC 4.28 Hgb 13.8 Hct 40.9 L MCV 95.4 MCH 32.2 H MCHC Differential 33.8 RDW 13.2 Plt Count 198 MPV 7.6 Neutrophils % 65.4 Lymphocytes % 22.1 Monocytes % 11.5 H Eosinophils % 0.6 Basophils % 0.4 Sodium 143 Potassium 4.2 Chloride 105 Carbon Dioxide 30.5 Anion Gap 11.7 BUN 13 Creatinine 0.6 Est GFR ( Amer) TNP Est GFR (Non-Af Amer) TNP BUN/Creatinine Ratio 21.7 Glucose 94 Calcium 9.4 Total Bilirubin 0.5 AST 18 ALT 16 Alkaline Phosphatase 58 Total Protein 6.8 Albumin 4.1 Globulin 2.7 Albumin/Globulin Ratio 1.5 Triglycerides 82 Cholesterol 197 LDL Cholesterol Direct 78 HDL Cholesterol 80 Urine Source CLEAN C Urine Color YELLOW Urine Clarity CLOUDY H Urine pH 7.5 Ur Specific [place] 1.015 Urine Protein NEGATIVE Urine Glucose (UA) NEGATIVE Urine Ketones TRACE Urine Blood TRACE Urine Nitrate POSITIVE H Urine Bilirubin NEGATIVE Urine Urobilinogen 0.2 Ur Leukocyte Esterase LARGE H Urine RBC 0-2 Urine WBC 50-100 H Ur Epithelial Cells FEW Urine Bacteria MANY H ED Septic Shock - . Is Septic Shock (SBP<90, OR Lactate>4 mmol\L) present?: No ED Reassessment (Disposition) - Reassessment Reassessment Condition:: Unchanged - Diagnosis Diagnosis:: Urinary tract infection; dementia with agitation; schizoaffective disorder; bipolar; depression - Patient Disposition Admitted to:: [facility] Admitting Medical Physician:: Warren Cohen Admitting Psych Physician:: Elena Apodaca Condition at Disposition:: Stable, Unchanged
[2018-03-26 11:38] LABS: % BASOPHILS 0.4 % (0.0-2.0); % EOSINOPHILS 0.6 % (0.0-5.0); % LYMPHOCYTES 22.1 % (20.0-50.0); % MONOCYTES 11.5 % (2.0-10.0); % NEUTROPHILS 65.4 % (40.0-80.0); HEMATOCRIT 40.9 % (41.0-60); HEMOGLOBIN 13.8 gm/dL (12-16); LYMPHOCYTE ABSOLUTE 1.4 Th/cmm (1.5-3.0); MEAN CELL VOLUME 95.4 fl (81-100); MEAN CORPUSCULAR HEMOGLOBIN 32.2 pg (27.0-31.0); MEAN CORPUSCULAR HGB CONC 33.8 pg (28.0-36.0); MEAN PLATELET VOLUME 7.6 fl; MONOCYTE ABSOLUTE 0.7 Th/cmm (0.3-1.0); NEUTROPHILE ABSOLUTE 4.4 Th/cmm (1.8-8.0); PLATELET COUNT 198 Th/cmm (150-400); RED BLOOD COUNT 4.28 Mil/cmm (3.80-5.20); RED CELL DISTRIBUTION WIDTH 13.2 % (11.5-20.0); WHITE BLOOD COUNT 6.5 Th/cmm (4.8-10.8)
[2018-03-26 11:49] LABS: URINE MICROSCOPIC INDICATED? YES; URINE SOURCE CLEAN C
[2018-03-26 11:51] LABS: ALB/GLOB RATIO 1.5 (1.0-1.8); ALBUMIN 4.1 gm/dL (3.7-5.3); ALKALINE PHOSPHATASE 58 U/L (34-104); ANION GAP 11.7 (7.0-16.0); BILIRUBIN,TOTAL 0.5 mg/dL (0.3-1.0); BUN - UREA NITROGEN 13 mg/dL (7-25); CALCIUM SERUM 9.4 mg/dL (8.6-10.3); CARBON DIOXIDE 30.5 mEq/L (21.0-31.0); CHLORIDE 105 mEq/L (98-107); CHOLESTEROL 197 mg/dL (<200); CREATININE - SERUM 0.6 mg/dL (0.6-1.2); GLUCOSE 94 mg/dL (70-105); HDL -HIGH DENSITY LIPOPROTEIN 80 mg/dL (23-92); POTASSIUM SERUM 4.2 mEq/L (3.5-5.1); SGOT 18 U/L (13-39); SGPT/ALT 16 U/L (7-52); SODIUM SERUM 143 mEq/L (136-145); TOTAL PROTEIN,SERUM 6.8 gm/dL (6.0-8.3); TRIGLYCERIDES 82 mg/dL (<150)
[2018-03-26 11:51] LABS: URINE BILIRUBIN NEGATIVE (NEGATIVE); URINE BLOOD TRACE (NEGATIVE); URINE GLUCOSE (UA) NEGATIVE (NEGATIVE); URINE KETONE TRACE mg/dL (NEGATIVE); URINE LEUKOCYTE ESTERASE LARGE (NEGATIVE); URINE NITRATE POSITIVE (NEGATIVE); URINE PH 7.5 (4.6 - 8.0); URINE PROTEIN NEGATIVE (NEGATIVE); URINE UROBILINOGEN 0.2 E.U./dL (0.2 - 1.0)
[2018-03-26 11:52] LABS: URINE CLARITY CLOUDY (CLEAR); URINE COLOR YELLOW
[2018-03-26 11:56] LABS: URINE RBC 0-2 /hpf (0-5)
[2018-03-26 11:57] LABS: URINE BACTERIA MANY /hpf (NONE SEEN); URINE EPITHELIAL CELLS FEW /lpf (FEW); URINE WBC 50-100 /hpf (0-5)
[2018-03-26 13:54] VITALS: BP 138/108
[2018-03-26] MEDS ORDERED: Maalox 30 mL Cup PO PRN (14:21)
[2018-03-26] MEDS ORDERED: Magnesium Hydroxide (MOM) 30 mL UDC PO PRN (14:21)
[2018-03-26 19:32] LABS: A1C % 5.2 % (4.0-6.0)
[2018-03-27] MEDS: Multivitamin Tab PO SCH (18:18)
--- NOTE | 2018-03-28 16:00 | History & Physical ---
ADMIT DATE: 03/26/2018 HISTORY OF PRESENT ILLNESS: Very well-known patient. Before also has seen the patient in psych unit. The patient was again become increasingly agitated, combative fpc, was sent to [facility] where the patient was evaluated in the ER and the patient medically cleared and was admitted to Geropsych Unit. No history of any major medical problems. No fever, no chills, no rigors. No nausea, vomiting, diarrhea, etc. She does have some past medical history including hypertension, thyroid disorder, schizoaffective disorder, glaucoma and seizures. PHYSICAL EXAMINATION: HEAD: Normal. ENT: Normal. NECK: Supple and nontender. LUNGS: Clear. CARDIOVASCULAR SYSTEM: S1 and S2 heard. ABDOMEN: Soft. Bowel sounds are heard. CENTRAL NERVOUS SYSTEM: Grossly normal. DIAGNOSES: Urinary tract infection, dementia, agitation schizoaffective disorder, bipolar disorder, depression, history of seizures and history of thyroid disorder. PLAN: The patient is being admitted. I will follow medically and Dr. Apodaca will follow the patient. [facility]# [id number]
[2018-03-28] MEDS: Multivitamin Tab PO SCH (18:41)
--- NOTE | 2018-03-28 19:09 | Psychosocial Evaluation ---
DATE OF SERVICE: 03/26/2018 PSYCHIATRIC INITIAL EVALUATION AND MENTAL STATUS EXAM PATIENT'S AGE: 72-year-old. SEX: Female. PHYSICIAN: Dr. Apodaca. CHIEF COMPLAINT: Agitation and irritable and aggressive behavior. HISTORY OF PRESENT ILLNESS: The patient is a 72-year-old female who was admitted to the hospital because of combative and aggressive behavior in the senior care where she lived for the last 24 hours. Chart reviewed and the patient interviewed and discussed the patient's condition with the staff and reviewed records and labs. The patient has been agitated and combative in the senior care. She also has been confused and has been agitated. Also, during my interview, the patient was taking off her clothes. She also was rambling and she needed lots of redirection. She also was getting more agitated with my questions. PAST PSYCHIATRIC HISTORY: The patient seems to have history of schizoaffective disorder, bipolar type. PAST MEDICAL HISTORY: The patient has a history of hypertension, CVA, hypothyroidism, glaucoma, and seizure disorder. FAMILY HISTORY: Noncontributory. SOCIAL HISTORY: The patient lives in a senior care. No known alcohol or drug use. ALLERGIES: No known allergies. MENTAL STATUS EXAMINATION: The patient appears older than her stated age. Disheveled. Agitated. Taking off her clothes during my interview. The patient did not answer questions regarding hallucinations or delusions, but she is actively hallucinating. The patient did not answer questions regarding suicide or homicide. The patient is alert and disoriented to time, place, person, and situation. Impaired immediate and recent memory, but intact remote memory and she did remember her date. Poor insight and poor judgment. She seems to be of average intelligence based on her verbal ability. ASSESSMENT: PRIMARY DIAGNOSIS: Schizoaffective disorder, bipolar type, with psychotic features. MEDICAL DIAGNOSES: 1. Hypertension. 2. Seizure disorder. 3. Status post cerebrovascular accident. TREATMENT PLAN: We will monitor the patient's behavior and condition closely. We will continue Abilify and we will adjust the dose. Also, work on behavioral modification. ESTIMATED LENGTH OF STAY: 5-7 days. THE PATIENT'S STRENGTHS AND WEAKNESSES: The patient's strength is not clear at this time. Weaknesses is her poor impulse control and ineffective coping and her confusion. AFTER DISCHARGE PLAN: The patient will return to the senior care with plans for outpatient treatment and followup there. JOB# [id number]
[2018-03-29] MEDS: Multivitamin Tab PO SCH (08:57)
--- NOTE | 2018-03-29 22:17 | General Progress Note ---
Subjective - Review of Systems Service Date: 03/29/18 Subjective: awake, nad Objective - Results Result Diagrams: 03/26/18 11:25 03/26/18 11:25 Recent Labs: Laboratory Last Values WBC 6.5 Th/cmm (4.8-10.8) 03/26/18 11:25 RBC 4.28 Mil/cmm (3.80-5.20) 03/26/18 11:25 Hgb 13.8 gm/dL (12-16) 03/26/18 11:25 Hct 40.9 % (41.0-60) L 03/26/18 11:25 MCV 95.4 fl (81-100) 03/26/18 11:25 MCH 32.2 pg (27.0-31.0) H 03/26/18 11:25 MCHC Differential 33.8 pg (28.0-36.0) 03/26/18 11:25 RDW 13.2 % (11.5-20.0) 03/26/18 11:25 Plt Count 198 Th/cmm (150-400) 03/26/18 11:25 MPV 7.6 fl 03/26/18 11:25 Neutrophils % 65.4 % (40.0-80.0) 03/26/18 11:25 Lymphocytes % 22.1 % (20.0-50.0) 03/26/18 11:25 Monocytes % 11.5 % (2.0-10.0) H 03/26/18 11:25 Eosinophils % 0.6 % (0.0-5.0) 03/26/18 11:25 Basophils % 0.4 % (0.0-2.0) 03/26/18 11:25 Sodium 143 mEq/L (136-145) 03/26/18 11:25 Potassium 4.2 mEq/L (3.5-5.1) 03/26/18 11:25 Chloride 105 mEq/L (98-107) 03/26/18 11:25 Carbon Dioxide 30.5 mEq/L (21.0-31.0) 03/26/18 11:25 Anion Gap 11.7 (7.0-16.0) 03/26/18 11:25 BUN 13 mg/dL (7-25) 03/26/18 11:25 Creatinine 0.6 mg/dL (0.6-1.2) 03/26/18 11:25 Est GFR ( Amer) TNP 03/26/18 11:25 Est GFR (Non-Af Amer) TNP 03/26/18 11:25 BUN/Creatinine Ratio 21.7 03/26/18 11:25 Glucose 94 mg/dL (70-105) 03/26/18 11:25 Hemoglobin A1c % 5.2 % (4.0-6.0) 03/26/18 11:25 Calcium 9.4 mg/dL (8.6-10.3) 03/26/18 11:25 Total Bilirubin 0.5 mg/dL (0.3-1.0) 03/26/18 11:25 AST 18 U/L (13-39) 03/26/18 11:25 ALT 16 U/L (7-52) 03/26/18 11:25 Alkaline Phosphatase 58 U/L (34-104) 03/26/18 11:25 Total Protein 6.8 gm/dL (6.0-8.3) 03/26/18 11:25 Albumin 4.1 gm/dL (3.7-5.3) 03/26/18 11:25 Globulin 2.7 gm/dL 03/26/18 11:25 Albumin/Globulin Ratio 1.5 (1.0-1.8) 03/26/18 11:25 Triglycerides 82 mg/dL (<150) 03/26/18 11:25 Cholesterol 197 mg/dL (<200) 03/26/18 11:25 LDL Cholesterol Direct 78 mg/dL (75-193) 03/26/18 11:25 HDL Cholesterol 80 mg/dL (23-92) 03/26/18 11:25 TSH 4.63 uIU/ml (0.34-5.60) 03/26/18 11:25 Urine Source CLEAN C 03/26/18 11:44 Urine Color YELLOW 03/26/18 11:44 Urine Clarity CLOUDY (CLEAR) H 03/26/18 11:44 Urine pH 7.5 (4.6 - 8.0) 03/26/18 11:44 Ur Specific [place] 1.015 (1.005-1.030) 03/26/18 11:44 Urine Protein NEGATIVE mg/dL (NEGATIVE) 03/26/18 11:44 Urine Glucose (UA) NEGATIVE mg/dL (NEGATIVE) 03/26/18 11:44 Urine Ketones TRACE mg/dL (NEGATIVE) 03/26/18 11:44 Urine Blood TRACE (NEGATIVE) 03/26/18 11:44 Urine Nitrate POSITIVE (NEGATIVE) H 03/26/18 11:44 Urine Bilirubin NEGATIVE (NEGATIVE) 03/26/18 11:44 Urine Urobilinogen 0.2 E.U./dL (0.2 - 1.0) 03/26/18 11:44 Ur Leukocyte Esterase LARGE (NEGATIVE) H 03/26/18 11:44 Urine RBC 0-2 /hpf (0-5) 03/26/18 11:44 Urine WBC 50-100 /hpf (0-5) H 03/26/18 11:44 Ur Epithelial Cells FEW /lpf (FEW) 03/26/18 11:44 Urine Bacteria MANY /hpf (NONE SEEN) H 03/26/18 11:44 Valproic Acid 55.2 ug/mL (50.0-100.0) 03/26/18 11:25 RPR NONREACTIVE (NONREACTIVE) 03/26/18 11:25 - Physical Exam Vitals and I&O: Vital Signs Temp 98.2 F 03/29/18 20:00 Pulse 60 03/29/18 20:00 Resp 16 03/29/18 20:00 BP 111/59 03/29/18 20:00 Pulse Ox 98 03/29/18 20:00 Intake & Output 03/29/18 03/29/18 03/30/18 06:59 18:59 06:59 Intake Total 500 Balance 500 Intake: Oral 500 Other: # Voids 3 # Bowel Movements 0 Active Medications: Current Medications Acetaminophen (Tylenol) 650 mg PO Q4HR PRN PRN Reason: Mild Pain / Temp above 100 Stop: 05/25/18 14:20 Al Hydrox/Mg Hydrox/Simethicone (Maalox) 30 ml PO Q4HR PRN PRN Reason: GI DISTRESS Stop: 05/25/18 14:20 Aripiprazole (Abilify) 10 mg PO DAILY DOMINIQUE; Protocol Stop: 05/26/18 08:59 Last Admin: 03/29/18 08:57 Dose: 10 mg Lorazepam (Ativan) 0.5 mg PO Q4HR PRN; Protocol PRN Reason: Anxiety Stop: 04/25/18 14:20 Last Admin: 03/28/18 10:14 Dose: 0.5 mg Magnesium Hydroxide (Milk Of Magnesia) 30 ml PO HS PRN PRN Reason: Constipation Multivitamins/Vitamin C (Theragran) 1 tab PO DAILY DOMINIQUE Stop: 05/26/18 08:59 Last Admin: 03/29/18 08:57 Dose: 1 tab Zolpidem Tartrate (Ambien) 5 mg PO HS PRN PRN Reason: Insomnia Stop: 05/25/18 14:20 Last Admin: 03/29/18 20:34 Dose: 5 mg General: Alert, No acute distress HEENT: Atraumatic Neck: Supple Cardiovascular: Regular rate Lungs: Clear to auscultation Abdomen: Bowel sounds, Soft Assessment/Plan - Assessment Assessment: uti agitation dementia seizure depression hypothyroidism - Plan Plan: cpm Nutritional Asmnt/Malnutr-PDOC - Dietary Evaluation Malnutrition Findings (Please click <Entered> for more info): Nutritional Asmnt/Malnutrition Start: 03/29/18 14: 37 Text: Status: Complete Freq: Protocol: Document 03/29/18 14:40 LCHENG (Rec: 03/29/18 14:57 [email or web address]) Nutritional Asmnt/Malnutrition Patient General Information Nutritional Screening Moderate Risk Diagnosis psychosis Pertinent Medical Hx/Surgical Hx no major medical problem Subjective Information Pt seen siting in kiah-chair in the hallway, alert and pleasant. Pt stated food is good. Per EMR, PO intake 75- 100%. Current Diet Order/ Nutrition Support JAQUELINE Pertinent Medications theragran Pertinent Labs 03/26 WNL Nutritional Hx/Data Height 1.57 m Height (Calculated Centimeters) 157.5 Current Weight (lbs) 51.71 kg Weight (Calculated Kilograms) 51.7 Weight (Calculated Grams) 34087.5 [place] Body Weight 110 Body Mass Index (BMI) 20.8 Weight Status Approriate GI Symptoms GI Symptoms None Last BM none Difficult in: None Skin Integrity/Comment: intact Current %PO Good (75-100%) Estimated Nutritional Goals BEE in Kcals: Using Current wt Calories/Kcals/Kg 25-30 Kcals Calculated 8110-9197 Protein: Using Current wt Protein g/k Protein Calculated 52 Fluid: ml 1300-1560ml (1ml/kcal) Nutritional Problem No current Nutrition Prob Problem N/A Malnutrition Alert Is there a minimum of two criteria No selected? Query Text:Check all the applicable criteria. A minimum of two criteria are recommended for diagnosis of either severe or non-severe malnutrition. Malnutrition Related to Morbid Obesity Malnutrition related to morbid obesity No Intervention/Recommendation Comments 1. Continue with JAQUELINE diet as ordered. 2. Monitor PO intake, wt, labs and skin integrity 3. F/U as low risk in 7 days, 04/05 Expected Outcomes/Goals Expected Outcomes/Goals 1. PO intake to meet at least 75% of nutritional needs. 2. Wt stability, skin to remain intact, labs to approach WNL.
--- NOTE | 2018-03-30 06:45 | Progress Notes ---
DATE: Chart reviewed and the patient interviewed. Also discussed the patient's condition with the staff and reviewed records and labs. The patient still seems to be confused and agitated. The patient also is in angry mood. Behavioral problems continues. The patient also is having behavioral issues and she is spitting on staff and starts scratching them and she is resisting care. She also is in angry and in irritable moods. She also is still noncompliant with medications and refused to take medications because of confusion and agitation. ASSESSMENT: The patient was still agitated at times and psychotic. TREATMENT PLAN: Continue to monitor her behavior and her condition closely. Also, continue to work on her anger and continue to follow up in regards to her noncompliance with taking her medications. [facility]# [id number]
[2018-03-30] MEDS: Multivitamin Tab PO SCH (09:29)
--- NOTE | 2018-03-30 11:33 | Progress Notes ---
DATE: SUBJECTIVE: Chart reviewed and the patient interviewed. Also discussed the patient's condition with the staff and reviewed records and labs. The patient is still confused and agitated. The patient also is restless. She also still trying to take off her clothes at times. She also is still having difficulty with her mood and following directions. Otherwise, the patient is compliant with taking her medications with no side effects of medications. ASSESSMENT: The patient has been agitated and in irritable mood. TREATMENT PLAN: Continue monitoring her behavior and continue adjusting psychotropic medications. Also, continue to work on her poor impulse control. JOB# [id number]
--- NOTE | 2018-03-30 20:26 | Progress Notes ---
DATE: 03/30/2018 SUBJECTIVE: The patient was seen in her room. The patient appears to be calm, but guarded, easily gets agitated, otherwise the patient is in no acute distress. OBJECTIVE: VITAL SIGNS: Temperature 97.2, heart rate of 64, respirations 16, blood pressure 133/61, 98% on room air. HEENT: Head is atraumatic and normocephalic. Eyes: Bilateral conjunctivae are clear. Bilateral pupils are equally round and reactive. NECK: Supple. No JVD. CARDIOVASCULAR: S1 and S2, without murmur. PULMONARY: Clear to auscultation. GASTROINTESTINAL: Soft and nontender without guarding. Positive bowel sounds. MUSCULOSKELETAL: No clubbing. No cyanosis noted. ASSESSMENT: 1. Schizoaffective disorder. 2. Osteoarthritis. 3. History of cerebrovascular accident. 4. Seizure disorder. 5. Hypertension. 6. Urinary tract infection. PLAN: We will start the patient on Macrobid 100 mg twice a day for 7 days. We are also going to do repeat of the urinalysis with culture and sensitivity. Treatment plans were discussed with the patient's nurse. Treatment plans were discussed with Dr. Cohen. JOB# [id number]
--- NOTE | 2018-03-30 21:43 | Progress Notes ---
DATE: 03/30/2018 SUBJECTIVE: Chart reviewed and the patient interviewed. Also discussed the patient's condition with the staff and records and labs. The patient is still severely agitated and she is still confused. The patient continued to be confused and forgetful. The patient also is still agitated and she still has unpredictable behavior. She also seems to be occupied. The patient also unable to follow directions, unable to answer any of my questions currently because of her confusion and agitation. ASSESSMENT: The patient is still agitated and confused. TREATMENT PLAN: Continue to monitor her behavior and her condition closely. Also, continue to work on her irritability and also fair compliance with taking her medications. The patient did take her medications yesterday, but at times she refuses to take medications. JOB# [id number]
[2018-03-31] MEDS: Multivitamin Tab PO SCH (08:24)
--- NOTE | 2018-03-31 13:38 | General Progress Note ---
Subjective - Review of Systems Events since last encounter: no distress denies pain Subjective: awake, nad Objective - Results Result Diagrams: 03/26/18 11:25 03/26/18 11:25 Recent Labs: Laboratory Last Values WBC 6.5 Th/cmm (4.8-10.8) 03/26/18 11:25 RBC 4.28 Mil/cmm (3.80-5.20) 03/26/18 11:25 Hgb 13.8 gm/dL (12-16) 03/26/18 11:25 Hct 40.9 % (41.0-60) L 03/26/18 11:25 MCV 95.4 fl (81-100) 03/26/18 11:25 MCH 32.2 pg (27.0-31.0) H 03/26/18 11:25 MCHC Differential 33.8 pg (28.0-36.0) 03/26/18 11:25 RDW 13.2 % (11.5-20.0) 03/26/18 11:25 Plt Count 198 Th/cmm (150-400) 03/26/18 11:25 MPV 7.6 fl 03/26/18 11:25 Neutrophils % 65.4 % (40.0-80.0) 03/26/18 11:25 Lymphocytes % 22.1 % (20.0-50.0) 03/26/18 11:25 Monocytes % 11.5 % (2.0-10.0) H 03/26/18 11:25 Eosinophils % 0.6 % (0.0-5.0) 03/26/18 11:25 Basophils % 0.4 % (0.0-2.0) 03/26/18 11:25 Sodium 143 mEq/L (136-145) 03/26/18 11:25 Potassium 4.2 mEq/L (3.5-5.1) 03/26/18 11:25 Chloride 105 mEq/L (98-107) 03/26/18 11:25 Carbon Dioxide 30.5 mEq/L (21.0-31.0) 03/26/18 11:25 Anion Gap 11.7 (7.0-16.0) 03/26/18 11:25 BUN 13 mg/dL (7-25) 03/26/18 11:25 Creatinine 0.6 mg/dL (0.6-1.2) 03/26/18 11:25 Est GFR ( Amer) TNP 03/26/18 11:25 Est GFR (Non-Af Amer) TNP 03/26/18 11:25 BUN/Creatinine Ratio 21.7 03/26/18 11:25 Glucose 94 mg/dL (70-105) 03/26/18 11:25 Hemoglobin A1c % 5.2 % (4.0-6.0) 03/26/18 11:25 Calcium 9.4 mg/dL (8.6-10.3) 03/26/18 11:25 Total Bilirubin 0.5 mg/dL (0.3-1.0) 03/26/18 11:25 AST 18 U/L (13-39) 03/26/18 11:25 ALT 16 U/L (7-52) 03/26/18 11:25 Alkaline Phosphatase 58 U/L (34-104) 03/26/18 11:25 Total Protein 6.8 gm/dL (6.0-8.3) 03/26/18 11:25 Albumin 4.1 gm/dL (3.7-5.3) 03/26/18 11:25 Globulin 2.7 gm/dL 03/26/18 11:25 Albumin/Globulin Ratio 1.5 (1.0-1.8) 03/26/18 11:25 Triglycerides 82 mg/dL (<150) 03/26/18 11:25 Cholesterol 197 mg/dL (<200) 03/26/18 11:25 LDL Cholesterol Direct 78 mg/dL (75-193) 03/26/18 11:25 HDL Cholesterol 80 mg/dL (23-92) 03/26/18 11:25 TSH 4.63 uIU/ml (0.34-5.60) 03/26/18 11:25 Urine Source CLEAN C 03/26/18 11:44 Urine Color YELLOW 03/26/18 11:44 Urine Clarity CLOUDY (CLEAR) H 03/26/18 11:44 Urine pH 7.5 (4.6 - 8.0) 03/26/18 11:44 Ur Specific [place] 1.015 (1.005-1.030) 03/26/18 11:44 Urine Protein NEGATIVE mg/dL (NEGATIVE) 03/26/18 11:44 Urine Glucose (UA) NEGATIVE mg/dL (NEGATIVE) 03/26/18 11:44 Urine Ketones TRACE mg/dL (NEGATIVE) 03/26/18 11:44 Urine Blood TRACE (NEGATIVE) 03/26/18 11:44 Urine Nitrate POSITIVE (NEGATIVE) H 03/26/18 11:44 Urine Bilirubin NEGATIVE (NEGATIVE) 03/26/18 11:44 Urine Urobilinogen 0.2 E.U./dL (0.2 - 1.0) 03/26/18 11:44 Ur Leukocyte Esterase LARGE (NEGATIVE) H 03/26/18 11:44 Urine RBC 0-2 /hpf (0-5) 03/26/18 11:44 Urine WBC 50-100 /hpf (0-5) H 03/26/18 11:44 Ur Epithelial Cells FEW /lpf (FEW) 03/26/18 11:44 Urine Bacteria MANY /hpf (NONE SEEN) H 03/26/18 11:44 Valproic Acid 55.2 ug/mL (50.0-100.0) 03/26/18 11:25 RPR NONREACTIVE (NONREACTIVE) 03/26/18 11:25 - Physical Exam Vitals and I&O: Vital Signs Temp 97.6 F 03/31/18 04:41 Pulse 74 03/31/18 04:41 Resp 18 03/31/18 04:41 BP 148/75 03/30/18 19:57 Pulse Ox 97 03/30/18 19:57 Intake & Output 03/30/18 03/31/18 03/31/18 18:59 06:59 18:59 Intake Total 1300 240 Balance 1300 240 Intake: Oral 1300 240 Other: # Voids 4 2 # Bowel Movements 0 Active Medications: Current Medications Acetaminophen (Tylenol) 650 mg PO Q4HR PRN PRN Reason: Mild Pain / Temp above 100 Stop: 05/25/18 14:20 Al Hydrox/Mg Hydrox/Simethicone (Maalox) 30 ml PO Q4HR PRN PRN Reason: GI DISTRESS Stop: 05/25/18 14:20 Aripiprazole (Abilify) 10 mg PO DAILY DOMINIQUE; Protocol Stop: 05/26/18 08:59 Last Admin: 03/31/18 08:24 Dose: 10 mg Lorazepam (Ativan) 0.5 mg PO Q4HR PRN; Protocol PRN Reason: Anxiety Stop: 04/25/18 14:20 Last Admin: 03/31/18 01:02 Dose: 0.5 mg Magnesium Hydroxide (Milk Of Magnesia) 30 ml PO HS PRN PRN Reason: Constipation Multivitamins/Vitamin C (Theragran) 1 tab PO DAILY DOMINIQUE Stop: 05/26/18 08:59 Last Admin: 03/31/18 08:24 Dose: 1 tab Nitrofurantoin Macrocrystals (Macrobid) 100 mg PO BID DOMINIQUE; Protocol Stop: 05/29/18 16:59 Last Admin: 03/31/18 08:24 Dose: 100 mg Zolpidem Tartrate (Ambien) 5 mg PO HS PRN PRN Reason: Insomnia Stop: 05/25/18 14:20 Last Admin: 03/30/18 21:06 Dose: 5 mg General: Alert, No acute distress HEENT: Atraumatic Neck: Supple Cardiovascular: Regular rate Lungs: Clear to auscultation Abdomen: Bowel sounds, Soft Assessment/Plan - Problem List Patient Problems: All Active Problems H/O: CVA (cerebrovascular accident) (Acute) Z86.73 Osteoarthritis (Acute) M19.90 Schizo affective schizophrenia (Acute) F25.0 Seizure disorder (Acute) G40.909 - Assessment Assessment: uti agitation dementia seizure depression hypothyroidism - Plan Plan: cpm Nutritional Asmnt/Malnutr-PDOC - Dietary Evaluation Malnutrition Findings (Please click <Entered> for more info): Nutritional Asmnt/Malnutrition Start: 03/29/18 14: 37 Text: Status: Complete Freq: Protocol: Document 03/29/18 14:40 LCLEBRONG (Rec: 03/29/18 14:57 [email or web address]) Nutritional Asmnt/Malnutrition Patient General Information Nutritional Screening Moderate Risk Diagnosis psychosis Pertinent Medical Hx/Surgical Hx no major medical problem Subjective Information Pt seen siting in kiah-chair in the hallway, alert and pleasant. Pt stated food is good. Per EMR, PO intake 75- 100%. Current Diet Order/ Nutrition Support JAQUELINE Pertinent Medications theragran Pertinent Labs 03/26 WNL Nutritional Hx/Data Height 1.57 m Height (Calculated Centimeters) 157.5 Current Weight (lbs) 51.71 kg Weight (Calculated Kilograms) 51.7 Weight (Calculated Grams) 75163.5 [place] Body Weight 110 Body Mass Index (BMI) 20.8 Weight Status Approriate GI Symptoms GI Symptoms None Last BM none Difficult in: None Skin Integrity/Comment: intact Current %PO Good (75-100%) Estimated Nutritional Goals BEE in Kcals: Using Current wt Calories/Kcals/Kg 25-30 Kcals Calculated 6147-8726 Protein: Using Current wt Protein g/k Protein Calculated 52 Fluid: ml 1300-1560ml (1ml/kcal) Nutritional Problem No current Nutrition Prob Problem N/A Malnutrition Alert Is there a minimum of two criteria No selected? Query Text:Check all the applicable criteria. A minimum of two criteria are recommended for diagnosis of either severe or non-severe malnutrition. Malnutrition Related to Morbid Obesity Malnutrition related to morbid obesity No Intervention/Recommendation Comments 1. Continue with JAQUELINE diet as ordered. 2. Monitor PO intake, wt, labs and skin integrity 3. F/U as low risk in 7 days, 04/05 Expected Outcomes/Goals Expected Outcomes/Goals 1. PO intake to meet at least 75% of nutritional needs. 2. Wt stability, skin to remain intact, labs to approach WNL.
--- NOTE | 2018-04-01 03:05 | Progress Notes ---
DATE: SUBJECTIVE: Chart reviewed and the patient interviewed. Also discussed the patient's condition with the staff and reviewed records and labs. The patient continued to be forgetful and confused and needs lots of redirections. The patient also seems to be preoccupied. She also has unpredictable behavior. The patient also is compliant with taking medications and she did take her medications. Otherwise, the patient needs close monitoring. ASSESSMENT: The patient is still confused and still needs close monitoring. TREATMENT PLAN: Continue to monitor behavior and her condition closely and continue to follow up. JOB# [id number]
[2018-04-01] MEDS: Multivitamin Tab PO SCH (09:08)
--- NOTE | 2018-04-01 16:09 | General Progress Note ---
Subjective - Review of Systems Events since last encounter: no distress Subjective: awake, nad Objective - Results Result Diagrams: 03/26/18 11:25 03/26/18 11:25 Recent Labs: Laboratory Last Values WBC 6.5 Th/cmm (4.8-10.8) 03/26/18 11:25 RBC 4.28 Mil/cmm (3.80-5.20) 03/26/18 11:25 Hgb 13.8 gm/dL (12-16) 03/26/18 11:25 Hct 40.9 % (41.0-60) L 03/26/18 11:25 MCV 95.4 fl (81-100) 03/26/18 11:25 MCH 32.2 pg (27.0-31.0) H 03/26/18 11:25 MCHC Differential 33.8 pg (28.0-36.0) 03/26/18 11:25 RDW 13.2 % (11.5-20.0) 03/26/18 11:25 Plt Count 198 Th/cmm (150-400) 03/26/18 11:25 MPV 7.6 fl 03/26/18 11:25 Neutrophils % 65.4 % (40.0-80.0) 03/26/18 11:25 Lymphocytes % 22.1 % (20.0-50.0) 03/26/18 11:25 Monocytes % 11.5 % (2.0-10.0) H 03/26/18 11:25 Eosinophils % 0.6 % (0.0-5.0) 03/26/18 11:25 Basophils % 0.4 % (0.0-2.0) 03/26/18 11:25 Sodium 143 mEq/L (136-145) 03/26/18 11:25 Potassium 4.2 mEq/L (3.5-5.1) 03/26/18 11:25 Chloride 105 mEq/L (98-107) 03/26/18 11:25 Carbon Dioxide 30.5 mEq/L (21.0-31.0) 03/26/18 11:25 Anion Gap 11.7 (7.0-16.0) 03/26/18 11:25 BUN 13 mg/dL (7-25) 03/26/18 11:25 Creatinine 0.6 mg/dL (0.6-1.2) 03/26/18 11:25 Est GFR ( Amer) TNP 03/26/18 11:25 Est GFR (Non-Af Amer) TNP 03/26/18 11:25 BUN/Creatinine Ratio 21.7 03/26/18 11:25 Glucose 94 mg/dL (70-105) 03/26/18 11:25 Hemoglobin A1c % 5.2 % (4.0-6.0) 03/26/18 11:25 Calcium 9.4 mg/dL (8.6-10.3) 03/26/18 11:25 Total Bilirubin 0.5 mg/dL (0.3-1.0) 03/26/18 11:25 AST 18 U/L (13-39) 03/26/18 11:25 ALT 16 U/L (7-52) 03/26/18 11:25 Alkaline Phosphatase 58 U/L (34-104) 03/26/18 11:25 Total Protein 6.8 gm/dL (6.0-8.3) 03/26/18 11:25 Albumin 4.1 gm/dL (3.7-5.3) 03/26/18 11:25 Globulin 2.7 gm/dL 03/26/18 11:25 Albumin/Globulin Ratio 1.5 (1.0-1.8) 03/26/18 11:25 Triglycerides 82 mg/dL (<150) 03/26/18 11:25 Cholesterol 197 mg/dL (<200) 03/26/18 11:25 LDL Cholesterol Direct 78 mg/dL (75-193) 03/26/18 11:25 HDL Cholesterol 80 mg/dL (23-92) 03/26/18 11:25 TSH 4.63 uIU/ml (0.34-5.60) 03/26/18 11:25 Urine Source CLEAN C 03/26/18 11:44 Urine Color YELLOW 03/26/18 11:44 Urine Clarity CLOUDY (CLEAR) H 03/26/18 11:44 Urine pH 7.5 (4.6 - 8.0) 03/26/18 11:44 Ur Specific [place] 1.015 (1.005-1.030) 03/26/18 11:44 Urine Protein NEGATIVE mg/dL (NEGATIVE) 03/26/18 11:44 Urine Glucose (UA) NEGATIVE mg/dL (NEGATIVE) 03/26/18 11:44 Urine Ketones TRACE mg/dL (NEGATIVE) 03/26/18 11:44 Urine Blood TRACE (NEGATIVE) 03/26/18 11:44 Urine Nitrate POSITIVE (NEGATIVE) H 03/26/18 11:44 Urine Bilirubin NEGATIVE (NEGATIVE) 03/26/18 11:44 Urine Urobilinogen 0.2 E.U./dL (0.2 - 1.0) 03/26/18 11:44 Ur Leukocyte Esterase LARGE (NEGATIVE) H 03/26/18 11:44 Urine RBC 0-2 /hpf (0-5) 03/26/18 11:44 Urine WBC 50-100 /hpf (0-5) H 03/26/18 11:44 Ur Epithelial Cells FEW /lpf (FEW) 03/26/18 11:44 Urine Bacteria MANY /hpf (NONE SEEN) H 03/26/18 11:44 Valproic Acid 55.2 ug/mL (50.0-100.0) 03/26/18 11:25 RPR NONREACTIVE (NONREACTIVE) 03/26/18 11:25 - Physical Exam Vitals and I&O: Vital Signs Temp 98.3 F 04/01/18 15:25 Pulse 78 04/01/18 15:25 Resp 18 04/01/18 15:25 BP 111/56 04/01/18 15:25 Pulse Ox 96 04/01/18 15:25 Intake & Output 03/31/18 04/01/18 04/01/18 18:59 06:59 18:59 Intake Total 1300 240 Balance 1300 240 Intake: Oral 1300 240 Other: # Voids 3 2 # Bowel Movements 2 Active Medications: Current Medications Acetaminophen (Tylenol) 650 mg PO Q4HR PRN PRN Reason: Mild Pain / Temp above 100 Stop: 05/25/18 14:20 Al Hydrox/Mg Hydrox/Simethicone (Maalox) 30 ml PO Q4HR PRN PRN Reason: GI DISTRESS Stop: 05/25/18 14:20 Aripiprazole (Abilify) 10 mg PO DAILY DOMINIQUE; Protocol Stop: 05/26/18 08:59 Last Admin: 04/01/18 09:08 Dose: 10 mg Lorazepam (Ativan) 0.5 mg PO Q4HR PRN; Protocol PRN Reason: Anxiety Stop: 04/25/18 14:20 Last Admin: 04/01/18 09:07 Dose: 0.5 mg Magnesium Hydroxide (Milk Of Magnesia) 30 ml PO HS PRN PRN Reason: Constipation Multivitamins/Vitamin C (Theragran) 1 tab PO DAILY DOMINIQUE Stop: 05/26/18 08:59 Last Admin: 04/01/18 09:08 Dose: 1 tab Nitrofurantoin Macrocrystals (Macrobid) 100 mg PO BID DOMINIQUE; Protocol Stop: 05/29/18 16:59 Last Admin: 04/01/18 09:08 Dose: 100 mg Zolpidem Tartrate (Ambien) 5 mg PO HS PRN PRN Reason: Insomnia Stop: 05/25/18 14:20 Last Admin: 03/31/18 20:42 Dose: 5 mg General: Alert, No acute distress HEENT: Atraumatic Neck: Supple Cardiovascular: Regular rate Lungs: Clear to auscultation Abdomen: Bowel sounds, Soft Assessment/Plan - Problem List Patient Problems: All Active Problems H/O: CVA (cerebrovascular accident) (Acute) Z86.73 Osteoarthritis (Acute) M19.90 Schizo affective schizophrenia (Acute) F25.0 Seizure disorder (Acute) G40.909 - Assessment Assessment: uti agitation dementia seizure depression hypothyroidism - Plan Plan: cpm Nutritional Asmnt/Malnutr-PDOC - Dietary Evaluation Malnutrition Findings (Please click <Entered> for more info): Nutritional Asmnt/Malnutrition Start: 03/29/18 14: 37 Text: Status: Complete Freq: Protocol: Document 03/29/18 14:40 [email or web address] (Rec: 03/29/18 14:57 LCTERRY [email or web address]) Nutritional Asmnt/Malnutrition Patient General Information Nutritional Screening Moderate Risk Diagnosis psychosis Pertinent Medical Hx/Surgical Hx no major medical problem Subjective Information Pt seen siting in kiah-chair in the hallway, alert and pleasant. Pt stated food is good. Per EMR, PO intake 75- 100%. Current Diet Order/ Nutrition Support JAQUELINE Pertinent Medications theragran Pertinent Labs 03/26 WNL Nutritional Hx/Data Height 1.57 m Height (Calculated Centimeters) 157.5 Current Weight (lbs) 51.71 kg Weight (Calculated Kilograms) 51.7 Weight (Calculated Grams) 35112.5 [place] Body Weight 110 Body Mass Index (BMI) 20.8 Weight Status Approriate GI Symptoms GI Symptoms None Last BM none Difficult in: None Skin Integrity/Comment: intact Current %PO Good (75-100%) Estimated Nutritional Goals BEE in Kcals: Using Current wt Calories/Kcals/Kg 25-30 Kcals Calculated 8133-4827 Protein: Using Current wt Protein g/k Protein Calculated 52 Fluid: ml 1300-1560ml (1ml/kcal) Nutritional Problem No current Nutrition Prob Problem N/A Malnutrition Alert Is there a minimum of two criteria No selected? Query Text:Check all the applicable criteria. A minimum of two criteria are recommended for diagnosis of either severe or non-severe malnutrition. Malnutrition Related to Morbid Obesity Malnutrition related to morbid obesity No Intervention/Recommendation Comments 1. Continue with JAQUELINE diet as ordered. 2. Monitor PO intake, wt, labs and skin integrity 3. F/U as low risk in 7 days, 04/05 Expected Outcomes/Goals Expected Outcomes/Goals 1. PO intake to meet at least 75% of nutritional needs. 2. Wt stability, skin to remain intact, labs to approach WNL.
--- NOTE | 2018-04-01 23:29 | Progress Notes ---
DATE: SUBJECTIVE: Chart reviewed and the patient interviewed. Also discussed the patient's condition with the staff and reviewed records and labs. The patient is still confused. The patient also has been forgetful and preoccupied. She also still have episodes of agitation and irritability, but it seems that Abilify 10 mg is helping the patient. ASSESSMENT: The patient is still agitated and psychotic. TREATMENT PLAN: Continue monitoring her behavior and her condition closely and continue at the same dose and will continue to follow up. [facility]# [id number]
[2018-04-02] MEDS: Multivitamin Tab PO SCH (08:14)
--- NOTE | 2018-04-03 01:35 | Progress Notes ---
DATE: 04/02/2018 SUBJECTIVE: Chart reviewed and the patient interviewed. Also discussed the patient's condition with the staff and reviewed the records and labs. The patient is still anxious and is still easily agitated and in irritable mood. She also is still confused and forgetful. Also, have unpredictable behavior. Otherwise, the patient continues to comply with taking her medications with no side effects of medications. ASSESSMENT: The patient is still confused and agitated, but showing improvement. TREATMENT PLAN: Continue monitoring behavior closely and also continue working on discharge plans and placement issue. JOB# [id number]
[2018-04-03] MEDS: Multivitamin Tab PO SCH (09:17)
--- NOTE | 2018-04-03 15:26 | General Progress Note ---
Subjective - Review of Systems Events since last encounter: patient improving denies pain Subjective: awake, nad Objective - Results Result Diagrams: 03/26/18 11:25 03/26/18 11:25 Recent Labs: Laboratory Last Values WBC 6.5 Th/cmm (4.8-10.8) 03/26/18 11:25 RBC 4.28 Mil/cmm (3.80-5.20) 03/26/18 11:25 Hgb 13.8 gm/dL (12-16) 03/26/18 11:25 Hct 40.9 % (41.0-60) L 03/26/18 11:25 MCV 95.4 fl (81-100) 03/26/18 11:25 MCH 32.2 pg (27.0-31.0) H 03/26/18 11:25 MCHC Differential 33.8 pg (28.0-36.0) 03/26/18 11:25 RDW 13.2 % (11.5-20.0) 03/26/18 11:25 Plt Count 198 Th/cmm (150-400) 03/26/18 11:25 MPV 7.6 fl 03/26/18 11:25 Neutrophils % 65.4 % (40.0-80.0) 03/26/18 11:25 Lymphocytes % 22.1 % (20.0-50.0) 03/26/18 11:25 Monocytes % 11.5 % (2.0-10.0) H 03/26/18 11:25 Eosinophils % 0.6 % (0.0-5.0) 03/26/18 11:25 Basophils % 0.4 % (0.0-2.0) 03/26/18 11:25 Sodium 143 mEq/L (136-145) 03/26/18 11:25 Potassium 4.2 mEq/L (3.5-5.1) 03/26/18 11:25 Chloride 105 mEq/L (98-107) 03/26/18 11:25 Carbon Dioxide 30.5 mEq/L (21.0-31.0) 03/26/18 11:25 Anion Gap 11.7 (7.0-16.0) 03/26/18 11:25 BUN 13 mg/dL (7-25) 03/26/18 11:25 Creatinine 0.6 mg/dL (0.6-1.2) 03/26/18 11:25 Est GFR ( Amer) TNP 03/26/18 11:25 Est GFR (Non-Af Amer) TNP 03/26/18 11:25 BUN/Creatinine Ratio 21.7 03/26/18 11:25 Glucose 94 mg/dL (70-105) 03/26/18 11:25 Hemoglobin A1c % 5.2 % (4.0-6.0) 03/26/18 11:25 Calcium 9.4 mg/dL (8.6-10.3) 03/26/18 11:25 Total Bilirubin 0.5 mg/dL (0.3-1.0) 03/26/18 11:25 AST 18 U/L (13-39) 03/26/18 11:25 ALT 16 U/L (7-52) 03/26/18 11:25 Alkaline Phosphatase 58 U/L (34-104) 03/26/18 11:25 Total Protein 6.8 gm/dL (6.0-8.3) 03/26/18 11:25 Albumin 4.1 gm/dL (3.7-5.3) 03/26/18 11:25 Globulin 2.7 gm/dL 03/26/18 11:25 Albumin/Globulin Ratio 1.5 (1.0-1.8) 03/26/18 11:25 Triglycerides 82 mg/dL (<150) 03/26/18 11:25 Cholesterol 197 mg/dL (<200) 03/26/18 11:25 LDL Cholesterol Direct 78 mg/dL (75-193) 03/26/18 11:25 HDL Cholesterol 80 mg/dL (23-92) 03/26/18 11:25 TSH 4.63 uIU/ml (0.34-5.60) 03/26/18 11:25 Urine Source CLEAN C 03/26/18 11:44 Urine Color YELLOW 03/26/18 11:44 Urine Clarity CLOUDY (CLEAR) H 03/26/18 11:44 Urine pH 7.5 (4.6 - 8.0) 03/26/18 11:44 Ur Specific [place] 1.015 (1.005-1.030) 03/26/18 11:44 Urine Protein NEGATIVE mg/dL (NEGATIVE) 03/26/18 11:44 Urine Glucose (UA) NEGATIVE mg/dL (NEGATIVE) 03/26/18 11:44 Urine Ketones TRACE mg/dL (NEGATIVE) 03/26/18 11:44 Urine Blood TRACE (NEGATIVE) 03/26/18 11:44 Urine Nitrate POSITIVE (NEGATIVE) H 03/26/18 11:44 Urine Bilirubin NEGATIVE (NEGATIVE) 03/26/18 11:44 Urine Urobilinogen 0.2 E.U./dL (0.2 - 1.0) 03/26/18 11:44 Ur Leukocyte Esterase LARGE (NEGATIVE) H 03/26/18 11:44 Urine RBC 0-2 /hpf (0-5) 03/26/18 11:44 Urine WBC 50-100 /hpf (0-5) H 03/26/18 11:44 Ur Epithelial Cells FEW /lpf (FEW) 03/26/18 11:44 Urine Bacteria MANY /hpf (NONE SEEN) H 03/26/18 11:44 Valproic Acid 55.2 ug/mL (50.0-100.0) 03/26/18 11:25 RPR NONREACTIVE (NONREACTIVE) 03/26/18 11:25 - Physical Exam Vitals and I&O: Vital Signs Temp 98.3 F 04/03/18 15:21 Pulse 65 04/03/18 15:21 Resp 20 04/03/18 15:21 BP 100/55 04/03/18 15:21 Pulse Ox 92 04/03/18 15:21 Intake & Output 04/02/18 04/03/18 04/03/18 18:59 06:59 18:59 Output Total 4 Balance -4 Output: Urine 4 Other: # Voids 1 Active Medications: Current Medications Acetaminophen (Tylenol) 650 mg PO Q4HR PRN PRN Reason: Mild Pain / Temp above 100 Stop: 05/25/18 14:20 Al Hydrox/Mg Hydrox/Simethicone (Maalox) 30 ml PO Q4HR PRN PRN Reason: GI DISTRESS Stop: 05/25/18 14:20 Aripiprazole (Abilify) 10 mg PO DAILY DOMINIQUE; Protocol Stop: 05/26/18 08:59 Last Admin: 04/03/18 09:17 Dose: 10 mg Lorazepam (Ativan) 0.5 mg PO Q4HR PRN; Protocol PRN Reason: Anxiety Stop: 04/25/18 14:20 Last Admin: 04/02/18 08:15 Dose: 0.5 mg Magnesium Hydroxide (Milk Of Magnesia) 30 ml PO HS PRN PRN Reason: Constipation Multivitamins/Vitamin C (Theragran) 1 tab PO DAILY DOMINIQUE Stop: 05/26/18 08:59 Last Admin: 04/03/18 09:17 Dose: 1 tab Nitrofurantoin Macrocrystals (Macrobid) 100 mg PO BID DOMINIQUE; Protocol Stop: 05/29/18 16:59 Last Admin: 04/03/18 09:17 Dose: 100 mg Zolpidem Tartrate (Ambien) 5 mg PO HS PRN PRN Reason: Insomnia Stop: 05/25/18 14:20 Last Admin: 04/01/18 20:57 Dose: 5 mg General: Alert, No acute distress HEENT: Atraumatic Neck: Supple Cardiovascular: Regular rate Lungs: Clear to auscultation Abdomen: Bowel sounds, Soft Assessment/Plan - Problem List Patient Problems: All Active Problems H/O: CVA (cerebrovascular accident) (Acute) Z86.73 Osteoarthritis (Acute) M19.90 Schizo affective schizophrenia (Acute) F25.0 Seizure disorder (Acute) G40.909 - Assessment Assessment: uti agitation dementia seizure depression hypothyroidism - Plan Plan: cpm Nutritional Asmnt/Malnutr-PDOC - Dietary Evaluation Malnutrition Findings (Please click <Entered> for more info): Nutritional Asmnt/Malnutrition Start: 03/29/18 14: 37 Text: Status: Complete Freq: Protocol: Document 03/29/18 14:40 [email or web address] (Rec: 03/29/18 14:57 LCTERRY [id number]) Nutritional Asmnt/Malnutrition Patient General Information Nutritional Screening Moderate Risk Diagnosis psychosis Pertinent Medical Hx/Surgical Hx no major medical problem Subjective Information Pt seen siting in kiah-chair in the hallway, alert and pleasant. Pt stated food is good. Per EMR, PO intake 75- 100%. Current Diet Order/ Nutrition Support JAQUELINE Pertinent Medications theragran Pertinent Labs 03/26 WNL Nutritional Hx/Data Height 1.57 m Height (Calculated Centimeters) 157.5 Current Weight (lbs) 51.71 kg Weight (Calculated Kilograms) 51.7 Weight (Calculated Grams) 75758.5 [place] Body Weight 110 Body Mass Index (BMI) 20.8 Weight Status Approriate GI Symptoms GI Symptoms None Last BM none Difficult in: None Skin Integrity/Comment: intact Current %PO Good (75-100%) Estimated Nutritional Goals BEE in Kcals: Using Current wt Calories/Kcals/Kg 25-30 Kcals Calculated 1496-3584 Protein: Using Current wt Protein g/k Protein Calculated 52 Fluid: ml 1300-1560ml (1ml/kcal) Nutritional Problem No current Nutrition Prob Problem N/A Malnutrition Alert Is there a minimum of two criteria No selected? Query Text:Check all the applicable criteria. A minimum of two criteria are recommended for diagnosis of either severe or non-severe malnutrition. Malnutrition Related to Morbid Obesity Malnutrition related to morbid obesity No Intervention/Recommendation Comments 1. Continue with JAQUELINE diet as ordered. 2. Monitor PO intake, wt, labs and skin integrity 3. F/U as low risk in 7 days, 04/05 Expected Outcomes/Goals Expected Outcomes/Goals 1. PO intake to meet at least 75% of nutritional needs. 2. Wt stability, skin to remain intact, labs to approach WNL.
--- NOTE | 2018-04-03 20:10 | Discharge Summary ---
DATE OF DISCHARGE: 04/03/2018 AGE: 72. SEX: Female. PHYSICIAN: Dr. Apodaca. FINAL DIAGNOSES: PRIMARY DIAGNOSES: Schizoaffective disorder, bipolar type, with psychotic features. MEDICAL DIAGNOSES: Hypertension. Seizure disorder. Status post cerebrovascular accident. REASON FOR HOSPITALIZATION: The patient was admitted to the hospital because of increased agitation and irritability and aggressive behavior and the patient was combative in the detention. HOSPITAL COURSE: The patient continued to be agitated and in irritable mood. She also was aggressive and she needed lots of redirections. The patient was started on Abilify 10 mg every day. Gradually, the patient's affect was brighter and the patient was less irritable and less agitated and the patient was discharged from the hospital. Physical exam of the patient came as mentioned on the final diagnoses. No major abnormal labs. AFTER DISCHARGE PLANS: The patient discharged from the hospital and returned to a detention in [facility]. Outpatient treatment and followup will continue there. EXPECTED OUTCOME AFTER DISCHARGE: Fair if the patient continues outpatient treatment and followup. [facility]# [id number]
== END 2018-04-03 15:00 | DRG 885 ==
LOC: ER 10:59 → GERO2 13:14
PROVIDERS: ADMIT Psychiatry & Neurology Psychiatry; ATTEND Psychiatry & Neurology Psychiatry
DX: F25.0 Schizoaffective disorder, bipolar type (principal); N39.0 Urinary tract infection, site not specified; I10 Essential (primary) hypertension; Z86.73 Personal history of transient ischemic attack (TIA), and cerebral infarction without residual deficits; F29 Unspecified psychosis not due to a substance or known physiological condition; F32.9 Major depressive disorder, single episode, unspecified; F03.90 Unspecified dementia, unspecified severity, without behavioral disturbance, psychotic disturbance, mood disturbance, and anxiety; E03.9 Hypothyroidism, unspecified; G40.909 Epilepsy, unspecified, not intractable, without status epilepticus; M19.90 Unspecified osteoarthritis, unspecified site
CPT/HCPCS: 36415-UA; 80053-TC; 80061-TC; 80164-TC; 81001-TC; 83036-90; 84443-TC; 85025-TC; 86592-TC; 87086-90; 93005; Z7610

== ENCOUNTER 2018-09-17 12:36 | Inpatient (IN) | payer MEDICARE, MEDICAID ==
--- NOTE | 2018-09-17 13:22 | ED Physician Chart ---
ED Chief Complaint/HPI - Patient Information Date Seen:: 09/17/18 Time Seen:: 12:55 Chief Complaint:: Hallucinations History of Present Illness:: onset x 3 days of hallucinations and anxiety; no report of trauma, SIs; H/As, S/ T, neck pain, C/P, SOB, Abd. Pain, A/N/V/D/C, fever, chills, or urinary s/s Allergies:: Allergies Allergy/AdvReac Type Severity Reaction Status Date / Time No Known Allergies Allergy Verified 02/11/18 18:06 Vitals:: Vital Signs - 8 hr 09/17/18 12:55 Temp 98.4 F HR 83 RR 22 BP 171/74 O2 Sat % 98 Historian:: Patient, EMS Review:: Nurse's Note Reviewed, Old Chart Reviewed, EMS run form Reviewed ED Review of Systems - Review of Systems General/Constitutional: No fever, No chills, No weight loss, No weakness, No diaphoresis, No edema, No loss of appetite Skin: No skin lesions, No rash, No bruising Head: No headache, No light-headedness Eyes: No loss of vision, No pain, No diplopia ENT: No earache, No nasal drainage, No sore throat, No tinnitus Neck: No neck pain, No swelling, No thyromegaly, No stiffness, No mass noted Cardio Vascular: No chest pain, No palpitations, No PND, No orthopnea, No edema Pulmonary: No SOB, No cough, No sputum, No wheezing GI: No nausea, No vomiting, No diarrhea, No pain, No melena, No hematochezia, No constipation, No hematemesis G/U: No dysuria, No frequency, No hematuria, No nacturia Dog Behaviorist: No vaginal discharge, No abnormal vaginal bleed, No contraction Musculoskeletal: No bone or joint pain, No back pain, No muscle pain Endocrine: No polyuria, No polydipsia Psychiatric: Prior psych history, No depression, Anxiety, No suicidal ideation, No homicidal ideation, Auditory hallucination, No visual hallucination Hematopoietic: No bruising, No lymphadenopathy Allergic/Immuno: No urticaria, No angioedema Neurological: No syncope, No focal symptoms, No weakness, No paresthesia, No headache, Seizure, No dizziness, No confusion, No vertigo ED Past Medical History - Past Medical History Obtainable: Yes Past Medical History: HTN, Seizures, Thyroid disorder Family History: HTN Social History: Non Smoker, No Alcohol, No Drug Use, , Care Facility Surgical History: None Psychiatricy History: Schizophrenia, Bipolar Medication: Reviewed Family Medical History - Family Member Mother History Unknown: Yes Ethnicity: Unknown Living Status: Unknown Hx Family Cancer: (unknown) Hx Family Coronary Artery Disease: (unknown) Hx Family Congestive Heart Failure: (unknown) Hx Family Hypertension: (unknown) Hx Family Stroke: (unknown) Hx Family Diabetes: (unknown) Hx Family Seizures: (unknown) Hx Family Dementia: (unknown) Hx Family AIDS: (unknown) Hx Family HIV: No Hx Family COPD: (unknown) Hx Family Hepatitis: (unknown) Hx Family Psychiatric Problems: (unknown) Hx Family Tuberculosis: (unknown) ED Physical Exam - Physical Examination General/Constitutional: Awake, Well-developed, well-nourished, Alert, No distress, GCS 15, Non-toxic appearing, Ambulatory Head: Atraumatic Eyes: Lids, conjuctiva normal, PERRL, EOMI Skin: Nl inspection, No rash, No skin lesions, No ecchymosis, Well hydrated, No lymphadenopathy ENMT: External ears, nose nl, TM canals nl, Nasal exam nl, Lips, teeth, gums nl , Oropharynx nl, Tonsils nl Neck: Nontender, Full ROM w/o pain, No JVD, No nuchal rigidity, No bruit, No mass, No stridor Respiratory: Nl effort/Exclusion, Clear to Auscultation, No Wheeze/Rhonchi/Rales Cardio Vascular: RRR, No murmur, gallop, rubs, NL S1 S2, Carotid/Femoral/Distal pulses equal bilaterally GI: No tenderness/rebounding/guarding, No organomegaly, No hernia, Normal BS's, Nondistended, No mass/bruits, No McBurney tenderness : No CVA tenderness Extremities: No tenderness or effusion, Full ROM, normal strength in all extremities, No edema, Normal digits & nails Neuro/Psych: Alert/oriented, DTR's symmetric, Normal sensory exam, Normal motor strength, Judgement/insight normal, Mood normal, Normal gait, No focal deficits Other Neuro/Psych comments:: + Psychomotor Agitation/Anxiousness; + Hallucinations; no SIs; Mood/Affect: Labile Misc: Normal back, No paraspinal tenderness ED Labs/Radiology/EKG Results - Lab Results Comments:: Reviewed - EKG Interpretations EKG Time:: 13:25 Rate & Rhythm: 66; NSR Comments:: non-specific st-t changes ED Septic Shock - . Is Septic Shock (SBP<90, OR Lactate>4 mmol\L) present?: No - <6hrs of presentation: Vital Signs: Vital Signs - 8 hr 09/17/18 12:55 Temp 98.4 F HR 83 RR 22 BP 171/74 O2 Sat % 98 ED Reassessment (Disposition) - Reassessment Reassessment Condition:: Improved - Diagnosis Diagnosis:: Dx: Hallucinations; Psychosis; Medical Clearance; Schizophrenia; Bipolar Disorder - Aftercare/Follow up Instructions Aftercare/Follow-Up Instructions:: Counseled pt regarding lab results/diagnosis & need follow up, Counseled pt & family regarding lab results/diagnosis & need follow up - Patient Disposition Discharge/Transfer:: Acute Care w/in this hosp Admitted to:: [facility] Condition at Disposition:: Stable, Improved
[2018-09-17 13:37] LABS: ALBUMIN 3.7 gm/dL (3.7-5.3); ALKALINE PHOSPHATASE 58 U/L (34-104); ANION GAP 12.6 (7.0-16.0); BILIRUBIN,TOTAL 0.4 mg/dL (0.3-1.0); BUN - UREA NITROGEN 7 mg/dL (7-25); CALCIUM SERUM 9.4 mg/dL (8.6-10.3); CARBON DIOXIDE 27.6 mEq/L (21.0-31.0); CHLORIDE 98 mEq/L (98-107); CHOLESTEROL 181 mg/dL (<200); CREATININE - SERUM 0.6 mg/dL (0.6-1.2); GLUCOSE 100 mg/dL (70-105); HDL -HIGH DENSITY LIPOPROTEIN 96 mg/dL (23-92); POTASSIUM SERUM 3.2 mEq/L (3.5-5.1); SGOT 16 U/L (13-39); SGPT/ALT 15 U/L (7-52); SODIUM SERUM 135 mEq/L (136-145); TRIGLYCERIDES 51 mg/dL (<150)
[2018-09-17 13:39] LABS: URINE SOURCE CLEAN C
[2018-09-17 13:42] LABS: URINE BILIRUBIN NEGATIVE (NEGATIVE); URINE BLOOD NEGATIVE (NEGATIVE); URINE GLUCOSE (UA) >=1000 mg/dL (NEGATIVE); URINE KETONE NEGATIVE (NEGATIVE); URINE LEUKOCYTE ESTERASE NEGATIVE (NEGATIVE); URINE MICROSCOPIC INDICATED? YES; URINE NITRATE NEGATIVE (NEGATIVE); URINE PROTEIN 30 mg/dL (NEGATIVE); URINE UROBILINOGEN 0.2 E.U./dL (0.2 - 1.0)
[2018-09-17 14:03] LABS: URINE CLARITY CLEAR (CLEAR); URINE COLOR YELLOW
[2018-09-17 14:09] LABS: URINE RBC NONE SEEN /hpf (0-5); URINE WBC 0-2 /hpf (0-5)
[2018-09-17 14:11] LABS: URINE EPITHELIAL CELLS NONE SEEN /lpf (FEW)
[2018-09-17 14:12] LABS: URINE BACTERIA NONE SEEN /hpf (NONE SEEN)
[2018-09-17 14:35] LABS: % BASOPHILS 0.6 % (0.0-2.0); % EOSINOPHILS 1.1 % (0.0-5.0); % LYMPHOCYTES 15.1 % (20.0-50.0); % MONOCYTES 12.7 % (2.0-10.0); % NEUTROPHILS 70.5 % (40.0-80.0); BASOPHILE ABSOLUTE 0.1 Th/cumm (0-0.2); EOSINOPHILE ABSOLUTE 0.1 Th/cmm (0.1-0.4); HEMATOCRIT 39.9 % (41.0-60); HEMOGLOBIN 13.8 gm/dL (12-16); LYMPHOCYTE ABSOLUTE 1.6 Th/cmm (1.5-3.0); MEAN CELL VOLUME 93.1 fl (81-100); MEAN CORPUSCULAR HEMOGLOBIN 32.3 pg (27.0-31.0); MEAN CORPUSCULAR HGB CONC 34.7 pg (28.0-36.0); MEAN PLATELET VOLUME 7.4 fl; MONOCYTE ABSOLUTE 1.3 Th/cmm (0.3-1.0); NEUTROPHILE ABSOLUTE 7.2 Th/cmm (1.8-8.0); PLATELET COUNT 342 Th/cmm (150-400); RED BLOOD COUNT 4.29 Mil/cmm (3.80-5.20); RED CELL DISTRIBUTION WIDTH 11.9 % (11.5-20.0); WHITE BLOOD COUNT 10.3 Th/cmm (4.8-10.8)
[2018-09-17 14:36] LABS: ALB/GLOB RATIO 1.2 (1.0-1.8); TOTAL PROTEIN,SERUM 6.8 gm/dL (6.0-8.3)
[2018-09-17 14:37] LABS: ACETAMINOPHEN < 10.0 ug/mL (10.0-30.0); SALICYLATES (ASPIRIN) < 25.0 mg/L (30.0-100.0)
[2018-09-17] MEDS ORDERED: Potassium Chloride 20 mEq ER Tab PO ONE (14:47)
[2018-09-17] MEDS ORDERED: Potassium Chloride Elixir 20 mEq /15 mL UDC ONE (14:48)
[2018-09-17 14:59] VITALS: BP 145/77
[2018-09-17 15:27] LABS: CHOLESTEROL 186 mg/dL (<200); HDL -HIGH DENSITY LIPOPROTEIN 95 mg/dL (23-92); TRIGLYCERIDES 52 mg/dL (<150)
[2018-09-17] MEDS ORDERED: Maalox 30 mL Cup PO PRN (16:00)
[2018-09-17 18:12] LABS: AMPHETAMINE URINE NEGATIVE (NEGATIVE); BARBITURATES URINE NEGATIVE (NEGATIVE); BENZODIAZEPINES QUAL URINE NEGATIVE (NEGATIVE); CANNABINOID THC NEGATIVE (NEGATIVE); COCAINE METABOLITE QUAL URINE NEGATIVE (NEGATIVE); METHADONE URINE NEGATIVE (NEGATIVE); METHAMPHETAMINES QUAL URINE NEGATIVE (NEGATIVE); OPIATES (MORPHINE) QUAL. URINE NEGATIVE (NEGATIVE); PHENCYCLIDINE (PCP) URINE NEGATIVE (NEGATIVE); TRICYCLICS (TCA) QUAL. URINE NEGATIVE (NEGATIVE)
[2018-09-17] MEDS ORDERED: Magnesium Hydroxide (MOM) 30 mL UDC PO PRN ×2 (19:18→21:00)
[2018-09-17] MEDS ORDERED: Acetaminophen 500 MG TAB PO PRN (19:18)
[2018-09-17] MEDS ORDERED: Fleet Enema 135 mL RC PRN (19:18)
--- NOTE | 2018-09-17 20:42 | History & Physical ---
ADMIT DATE: 09/17/2018 HISTORY OF PRESENT ILLNESS: The patient was admitted here because of increasing confusion, increasing hallucination. I know this patient from [facility]. The patient has been having this problem for last 3 days and was seen by the Emergency Room and evaluated and was admitted for Geropsych Unit. PAST MEDICAL HISTORY: The patient has a history of hypertension, seizures and thyroid disorder. REVIEW OF SYSTEMS: Otherwise, negative. PAST MEDICAL HISTORY: Otherwise, negative. PHYSICAL EXAMINATION: HEAD: Normal. ENT: Normal. NECK: Supple, nontender. LUNGS: Clear. CARDIOVASCULAR SYSTEM: S1 and S2 heard. ABDOMEN: Soft. Bowel sounds are heard. EKG: Normal sinus rhythm. DIAGNOSES: Psychosis, bipolar disorder, history of hypertension, history of seizures and history of thyroid disorder was made. PLAN: The patient is being admitted. I will follow medically along with psych doctor. JOB# [id number]
[2018-09-17] MEDS ORDERED: Non-Formulary Item 1 EA (Docusate Sodium [Docusate Sodium] 200 MG) PO SCH (21:00)
[2018-09-18] MEDS: Pantoprazole 40 mg EC Tab PO SCH (08:46)
[2018-09-18] MEDS: Multivitamin Tab PO SCH (08:46)
[2018-09-18] MEDS: Levothyroxine 0.075 Mg Tab PO SCH (08:46)
[2018-09-18] MEDS ORDERED: Multivitamin Tab PO SCH (09:00)
[2018-09-18] MEDS ORDERED: Betamethasone/Clotrimazole Cream 15 gm Tube TP SCH (09:00)
[2018-09-18] MEDS ORDERED: Non-Formulary Item 1 EA (Cranberry Fruit [Cranberry] 450 MG) PO SCH (09:00)
[2018-09-18] MEDS ORDERED: LINACLOTIDE 290 MCG PO SCH (09:00)
--- NOTE | 2018-09-18 12:51 | History & Physical ---
ADMIT DATE: 09/17/2018 IDENTIFYING INFORMATION: The patient is a 73-year-old female. CHIEF COMPLAINT: "I am okay." HISTORY OF PRESENT ILLNESS: The patient was admitted because of confusion, hallucinations. The patient apparently came from [facility], has been having ____ for a few days. She was seen by the Emergency Room, admitted to the Geropsych Unit. The patient was a poor historian. She is easily agitated. She kept yelling whenever she hears one of the patient is feeling paranoid. She was unable to tell me her age. She knew the date, but she had to think for a long time before she was able to come up with it. She reports that sleep and appetite varies, unable to tell me exact details. She looked disheveled, disorganized, internally preoccupied. PAST PSYCHIATRIC HISTORY: The patient admitted to prior psychiatric treatment; however, she is unable to tell me more details about it. She got very upset and very frustrated when I tried to ask her and she felt very paranoid. She was paranoid. The patient was unable to tell me if she has prior treatment. She admits that she has a prior history of being in a mental hospital, but she is unable to tell me why. FAMILY AND SOCIAL HISTORY: The patient was unable to participate in meaningful conversation, give me enough information about her family. 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 She denies substance abuse problem. Unable to tell me with whom she is living with. She came from a nursing facility. ALLERGIES: The patient has no known drug allergies. The patient was diagnosed by Dr. Cohen to have hypertension and seizure disorder, thyroid disorder. MENTAL STATUS EXAMINATION: The patient is in appropriately dressed, not very well groomed. She was agitated, paranoid, unable to participate in meaningful conversation or make safe plan for self-care, unable to tell me about her sleep and appetite. Unable to participate in memory testing as she was very frustrated, agitated. Her long and short-term memory is poor, unable to tell me her age, unable to tell me exactly why she is here. Her insight and judgment is impaired. IMPRESSION: AXIS I: Psychosis and major depression, recurrent with psychosis, dementia. MEDICAL DIAGNOSES: Deferred to the medical doctor. PLAN: The patient will be started on Seroquel and Aricept. We will do group therapy, milieu therapy, and individual therapy. ESTIMATED LENGTH OF STAY: 3-7 days. DISCHARGE CRITERIA: Decreasing psychosis, agitation, depression after discharge, outpatient treatment. JOB# [id number]
--- NOTE | 2018-09-18 15:33 | General Progress Note ---
Objective - Results Result Diagrams: 09/17/18 13:00 09/17/18 13:00 Recent Labs: Laboratory Last Values WBC 10.3 Th/cmm (4.8-10.8) 09/17/18 13:00 RBC 4.29 Mil/cmm (3.80-5.20) 09/17/18 13:00 Hgb 13.8 gm/dL (12-16) 09/17/18 13:00 Hct 39.9 % (41.0-60) L 09/17/18 13:00 MCV 93.1 fl (81-100) 09/17/18 13:00 MCH 32.3 pg (27.0-31.0) H 09/17/18 13:00 MCHC Differential 34.7 pg (28.0-36.0) 09/17/18 13:00 RDW 11.9 % (11.5-20.0) 09/17/18 13:00 Plt Count 342 Th/cmm (150-400) 09/17/18 13:00 MPV 7.4 fl 09/17/18 13:00 Neutrophils % 70.5 % (40.0-80.0) 09/17/18 13:00 Lymphocytes % 15.1 % (20.0-50.0) L 09/17/18 13:00 Monocytes % 12.7 % (2.0-10.0) H 09/17/18 13:00 Eosinophils % 1.1 % (0.0-5.0) 09/17/18 13:00 Basophils % 0.6 % (0.0-2.0) 09/17/18 13:00 Sodium 135 mEq/L (136-145) L 09/17/18 13:00 Potassium 3.2 mEq/L (3.5-5.1) L 09/17/18 13:00 Chloride 98 mEq/L (98-107) 09/17/18 13:00 Carbon Dioxide 27.6 mEq/L (21.0-31.0) 09/17/18 13:00 Anion Gap 12.6 (7.0-16.0) 09/17/18 13:00 BUN 7 mg/dL (7-25) 09/17/18 13:00 Creatinine 0.6 mg/dL (0.6-1.2) 09/17/18 13:00 Est GFR ( Amer) TNP 09/17/18 13:00 Est GFR (Non-Af Amer) TNP 09/17/18 13:00 BUN/Creatinine Ratio 11.7 09/17/18 13:00 Glucose 100 mg/dL (70-105) 09/17/18 13:00 Calcium 9.4 mg/dL (8.6-10.3) 09/17/18 13:00 Total Bilirubin 0.4 mg/dL (0.3-1.0) 09/17/18 13:00 AST 16 U/L (13-39) 09/17/18 13:00 ALT 15 U/L (7-52) 09/17/18 13:00 Alkaline Phosphatase 58 U/L (34-104) 09/17/18 13:00 Troponin I 0.01 ng/mL (0.01-0.05) 09/17/18 13:00 Total Protein 6.8 gm/dL (6.0-8.3) 09/17/18 13:00 Albumin 3.7 gm/dL (3.7-5.3) 09/17/18 13:00 Globulin 3.1 gm/dL 09/17/18 13:00 Albumin/Globulin Ratio 1.2 (1.0-1.8) 09/17/18 13:00 Triglycerides 52 mg/dL (<150) 09/17/18 13:00 Cholesterol 186 mg/dL (<200) 09/17/18 13:00 LDL Cholesterol Direct 56 mg/dL (75-193) L 09/17/18 13:00 HDL Cholesterol 95 mg/dL (23-92) H 09/17/18 13:00 TSH 2.25 uIU/ml (0.34-5.60) 09/17/18 13:00 Urine Source CLEAN C 09/17/18 13:20 Urine Color YELLOW 09/17/18 13:20 Urine Clarity CLEAR (CLEAR) 09/17/18 13:20 Urine pH 7.0 (4.6 - 8.0) 09/17/18 13:20 Ur Specific [place] 1.020 (1.005-1.030) 09/17/18 13:20 Urine Protein 30 mg/dL (NEGATIVE) H 09/17/18 13:20 Urine Glucose (UA) >=1000 mg/dL (NEGATIVE) H 09/17/18 13:20 Urine Ketones NEGATIVE mg/dL (NEGATIVE) 09/17/18 13:20 Urine Blood NEGATIVE (NEGATIVE) 09/17/18 13:20 Urine Nitrate NEGATIVE (NEGATIVE) 09/17/18 13:20 Urine Bilirubin NEGATIVE (NEGATIVE) 09/17/18 13:20 Urine Urobilinogen 0.2 E.U./dL (0.2 - 1.0) 09/17/18 13:20 Ur Leukocyte Esterase NEGATIVE (NEGATIVE) 09/17/18 13:20 Urine RBC NONE SEEN /hpf (0-5) 09/17/18 13:20 Urine WBC 0-2 /hpf (0-5) 09/17/18 13:20 Ur Epithelial Cells NONE SEEN /lpf (FEW) 09/17/18 13:20 Urine Bacteria NONE SEEN /hpf (NONE SEEN) 09/17/18 13:20 Salicylates < 25.0 mg/L (30.0-100.0) L 09/17/18 13:00 Urine Opiates Screen NEGATIVE (NEGATIVE) 09/17/18 13:20 Urine Methadone Screen NEGATIVE (NEGATIVE) 09/17/18 13:20 Acetaminophen < 10.0 ug/mL (10.0-30.0) L 09/17/18 13:00 Ur Barbiturates Screen NEGATIVE (NEGATIVE) 09/17/18 13:20 Ur Tricyclics Screen NEGATIVE (NEGATIVE) 09/17/18 13:20 Ur Phencyclidine Scrn NEGATIVE (NEGATIVE) 09/17/18 13:20 Amphetamines Screen NEGATIVE (NEGATIVE) 09/17/18 13:20 U Methamphetamines Scrn NEGATIVE (NEGATIVE) 09/17/18 13:20 U Benzodiazepines Scrn NEGATIVE (NEGATIVE) 09/17/18 13:20 U Cocaine Metab Screen NEGATIVE (NEGATIVE) 09/17/18 13:20 U Cannabinoids Screen NEGATIVE (NEGATIVE) 09/17/18 13:20 Ethyl Alcohol < 10 mg/dL (0-10) 09/17/18 13:00 - Physical Exam Vitals and I&O: Vital Signs Temp 96.3 F 09/18/18 14:00 Pulse 87 09/18/18 14:00 Resp 20 09/18/18 14:00 BP 145/68 09/18/18 14:00 Pulse Ox 97 09/18/18 14:00 Intake & Output 09/17/18 09/18/18 09/18/18 18:59 06:59 18:59 Intake Total 240 Balance 240 Weight (lbs) 42.683 kg Intake: Oral 240 Other: # Voids 1 # Bowel Movements 0 Weight Source Patient stated Active Medications: Current Medications Acetaminophen (Tylenol) 650 mg PO Q4H PRN PRN Reason: Mild Pain / Temp above 100 Stop: 11/16/18 14:58 Acetaminophen (Tylenol Extra Strength) 1,000 mg PO Q8H PRN PRN Reason: MOD/SEVERE PAIN Stop: 11/16/18 19:17 Al Hydrox/Mg Hydrox/Simethicone (Maalox) 30 ml PO Q4H PRN PRN Reason: GI DISTRESS Stop: 11/16/18 15:59 Bisacodyl (Dulcolax 10 Mg Supp) 10 mg RC DAILY PRN PRN Reason: IF MOM INEFFECTIVE Stop: 11/16/18 19:17 Brimonidine Tartrate (Alphagan 0.2% Ophth Soln) 1 drop EACH EYE BID [facility] Stop: 11/17/18 08:59 Last Admin: 09/18/18 08:45 Dose: 1 drop Diphenhydramine HCl (Benadryl) 50 mg PO TID PRN PRN Reason: Itching Stop: 11/16/18 23:27 Last Admin: 09/18/18 08:47 Dose: 50 mg Docusate Sodium (Colace) 200 mg PO HS [facility] Stop: 11/16/18 21:26 Last Admin: 09/17/18 21:57 Dose: Not Given Donepezil HCl (Aricept) 5 mg PO HS [facility] Stop: 11/17/18 20:59 Latanoprost (Xalatan 0.005% Ophth Soln) 1 drop EACH EYE HS [facility] Stop: 11/16/18 20:59 Last Admin: 09/17/18 21:56 Dose: Not Given Levothyroxine Sodium (Synthroid) 0.075 mg PO DAILY [facility] Stop: 11/17/18 08:59 Last Admin: 09/18/18 08:46 Dose: 0.075 mg Lisinopril (Zestril) 10 mg PO DAILY [facility] Stop: 11/17/18 08:59 Last Admin: 09/18/18 08:47 Dose: 10 mg Lorazepam (Ativan) 0.5 mg PO Q4H PRN; Protocol PRN Reason: Agitation Stop: 11/16/18 15:59 Last Admin: 09/17/18 22:56 Dose: 0.5 mg Magnesium Hydroxide (Milk Of Magnesia) 30 ml PO HS PRN PRN Reason: Constipation Stop: 11/16/18 19:17 Multivitamins/Vitamin C (Theragran) 1 tab PO DAILY [facility] Stop: 11/17/18 08:59 Last Admin: 09/18/18 08:46 Dose: Not Given Naproxen (Naprosyn) 500 mg PO BID PRN PRN Reason: PAIN Stop: 11/16/18 19:17 Nystatin (Nystop) 100 units TP BID [facility] Stop: 11/17/18 16:59 Pantoprazole Sodium (Protonix) 40 mg PO DAILY [facility] Stop: 11/17/18 08:59 Last Admin: 09/18/18 08:46 Dose: 40 mg Quetiapine Fumarate (Seroquel) 12.5 mg PO BID [facility]; Protocol Stop: 11/17/18 16:59 Senna (Senna) 8.6 mg PO HS [facility] Stop: 11/16/18 20:59 Last Admin: 09/17/18 21:16 Dose: Not Given Sodium Phosphate (Fleet Enema) 135 ml RC Q48H PRN PRN Reason: IF DULCOLAX INEFFECTIVE Stop: 11/16/18 19:17 Zolpidem Tartrate (Ambien) 5 mg PO HS PRN PRN Reason: Insomnia Stop: 11/16/18 20:59 Last Admin: 09/17/18 21:30 Dose: 5 mg Assessment/Plan - Problem List Patient Problems: All Active Problems HALLUCINATIONS AND GROIN RASH (Acute)
--- NOTE | 2018-09-18 15:33 | General Progress Note ---
Subjective - Review of Systems Events since last encounter: pt. confused Objective - Results Result Diagrams: 09/17/18 13:00 09/17/18 13:00 Recent Labs: Laboratory Last Values WBC 10.3 Th/cmm (4.8-10.8) 09/17/18 13:00 RBC 4.29 Mil/cmm (3.80-5.20) 09/17/18 13:00 Hgb 13.8 gm/dL (12-16) 09/17/18 13:00 Hct 39.9 % (41.0-60) L 09/17/18 13:00 MCV 93.1 fl (81-100) 09/17/18 13:00 MCH 32.3 pg (27.0-31.0) H 09/17/18 13:00 MCHC Differential 34.7 pg (28.0-36.0) 09/17/18 13:00 RDW 11.9 % (11.5-20.0) 09/17/18 13:00 Plt Count 342 Th/cmm (150-400) 09/17/18 13:00 MPV 7.4 fl 09/17/18 13:00 Neutrophils % 70.5 % (40.0-80.0) 09/17/18 13:00 Lymphocytes % 15.1 % (20.0-50.0) L 09/17/18 13:00 Monocytes % 12.7 % (2.0-10.0) H 09/17/18 13:00 Eosinophils % 1.1 % (0.0-5.0) 09/17/18 13:00 Basophils % 0.6 % (0.0-2.0) 09/17/18 13:00 Sodium 135 mEq/L (136-145) L 09/17/18 13:00 Potassium 3.2 mEq/L (3.5-5.1) L 09/17/18 13:00 Chloride 98 mEq/L (98-107) 09/17/18 13:00 Carbon Dioxide 27.6 mEq/L (21.0-31.0) 09/17/18 13:00 Anion Gap 12.6 (7.0-16.0) 09/17/18 13:00 BUN 7 mg/dL (7-25) 09/17/18 13:00 Creatinine 0.6 mg/dL (0.6-1.2) 09/17/18 13:00 Est GFR ( Amer) TNP 09/17/18 13:00 Est GFR (Non-Af Amer) TNP 09/17/18 13:00 BUN/Creatinine Ratio 11.7 09/17/18 13:00 Glucose 100 mg/dL (70-105) 09/17/18 13:00 Calcium 9.4 mg/dL (8.6-10.3) 09/17/18 13:00 Total Bilirubin 0.4 mg/dL (0.3-1.0) 09/17/18 13:00 AST 16 U/L (13-39) 09/17/18 13:00 ALT 15 U/L (7-52) 09/17/18 13:00 Alkaline Phosphatase 58 U/L (34-104) 09/17/18 13:00 Troponin I 0.01 ng/mL (0.01-0.05) 09/17/18 13:00 Total Protein 6.8 gm/dL (6.0-8.3) 09/17/18 13:00 Albumin 3.7 gm/dL (3.7-5.3) 09/17/18 13:00 Globulin 3.1 gm/dL 09/17/18 13:00 Albumin/Globulin Ratio 1.2 (1.0-1.8) 09/17/18 13:00 Triglycerides 52 mg/dL (<150) 09/17/18 13:00 Cholesterol 186 mg/dL (<200) 09/17/18 13:00 LDL Cholesterol Direct 56 mg/dL (75-193) L 09/17/18 13:00 HDL Cholesterol 95 mg/dL (23-92) H 09/17/18 13:00 TSH 2.25 uIU/ml (0.34-5.60) 09/17/18 13:00 Urine Source CLEAN C 09/17/18 13:20 Urine Color YELLOW 09/17/18 13:20 Urine Clarity CLEAR (CLEAR) 09/17/18 13:20 Urine pH 7.0 (4.6 - 8.0) 09/17/18 13:20 Ur Specific [place] 1.020 (1.005-1.030) 09/17/18 13:20 Urine Protein 30 mg/dL (NEGATIVE) H 09/17/18 13:20 Urine Glucose (UA) >=1000 mg/dL (NEGATIVE) H 09/17/18 13:20 Urine Ketones NEGATIVE mg/dL (NEGATIVE) 09/17/18 13:20 Urine Blood NEGATIVE (NEGATIVE) 09/17/18 13:20 Urine Nitrate NEGATIVE (NEGATIVE) 09/17/18 13:20 Urine Bilirubin NEGATIVE (NEGATIVE) 09/17/18 13:20 Urine Urobilinogen 0.2 E.U./dL (0.2 - 1.0) 09/17/18 13:20 Ur Leukocyte Esterase NEGATIVE (NEGATIVE) 09/17/18 13:20 Urine RBC NONE SEEN /hpf (0-5) 09/17/18 13:20 Urine WBC 0-2 /hpf (0-5) 09/17/18 13:20 Ur Epithelial Cells NONE SEEN /lpf (FEW) 09/17/18 13:20 Urine Bacteria NONE SEEN /hpf (NONE SEEN) 09/17/18 13:20 Salicylates < 25.0 mg/L (30.0-100.0) L 09/17/18 13:00 Urine Opiates Screen NEGATIVE (NEGATIVE) 09/17/18 13:20 Urine Methadone Screen NEGATIVE (NEGATIVE) 09/17/18 13:20 Acetaminophen < 10.0 ug/mL (10.0-30.0) L 09/17/18 13:00 Ur Barbiturates Screen NEGATIVE (NEGATIVE) 09/17/18 13:20 Ur Tricyclics Screen NEGATIVE (NEGATIVE) 09/17/18 13:20 Ur Phencyclidine Scrn NEGATIVE (NEGATIVE) 09/17/18 13:20 Amphetamines Screen NEGATIVE (NEGATIVE) 09/17/18 13:20 U Methamphetamines Scrn NEGATIVE (NEGATIVE) 09/17/18 13:20 U Benzodiazepines Scrn NEGATIVE (NEGATIVE) 09/17/18 13:20 U Cocaine Metab Screen NEGATIVE (NEGATIVE) 09/17/18 13:20 U Cannabinoids Screen NEGATIVE (NEGATIVE) 09/17/18 13:20 Ethyl Alcohol < 10 mg/dL (0-10) 09/17/18 13:00 - Physical Exam Vitals and I&O: Vital Signs Temp 96.3 F 09/18/18 14:00 Pulse 87 09/18/18 14:00 Resp 20 09/18/18 14:00 BP 145/68 09/18/18 14:00 Pulse Ox 97 09/18/18 14:00 Intake & Output 09/17/18 09/18/18 09/18/18 18:59 06:59 18:59 Intake Total 240 Balance 240 Weight (lbs) 42.683 kg Intake: Oral 240 Other: # Voids 1 # Bowel Movements 0 Weight Source Patient stated Active Medications: Current Medications Acetaminophen (Tylenol) 650 mg PO Q4H PRN PRN Reason: Mild Pain / Temp above 100 Stop: 11/16/18 14:58 Acetaminophen (Tylenol Extra Strength) 1,000 mg PO Q8H PRN PRN Reason: MOD/SEVERE PAIN Stop: 11/16/18 19:17 Al Hydrox/Mg Hydrox/Simethicone (Maalox) 30 ml PO Q4H PRN PRN Reason: GI DISTRESS Stop: 11/16/18 15:59 Bisacodyl (Dulcolax 10 Mg Supp) 10 mg RC DAILY PRN PRN Reason: IF MOM INEFFECTIVE Stop: 11/16/18 19:17 Brimonidine Tartrate (Alphagan 0.2% Ophth Soln) 1 drop EACH EYE BID [facility] Stop: 11/17/18 08:59 Last Admin: 09/18/18 08:45 Dose: 1 drop Diphenhydramine HCl (Benadryl) 50 mg PO TID PRN PRN Reason: Itching Stop: 11/16/18 23:27 Last Admin: 09/18/18 08:47 Dose: 50 mg Docusate Sodium (Colace) 200 mg PO HS [facility] Stop: 11/16/18 21:26 Last Admin: 09/17/18 21:57 Dose: Not Given Donepezil HCl (Aricept) 5 mg PO HS [facility] Stop: 11/17/18 20:59 Latanoprost (Xalatan 0.005% Ophth Soln) 1 drop EACH EYE [facility] Stop: 11/16/18 20:59 Last Admin: 09/17/18 21:56 Dose: Not Given Levothyroxine Sodium (Synthroid) 0.075 mg PO DAILY [facility] Stop: 11/17/18 08:59 Last Admin: 09/18/18 08:46 Dose: 0.075 mg Lisinopril (Zestril) 10 mg PO DAILY [facility] Stop: 11/17/18 08:59 Last Admin: 09/18/18 08:47 Dose: 10 mg Lorazepam (Ativan) 0.5 mg PO Q4H PRN; Protocol PRN Reason: Agitation Stop: 11/16/18 15:59 Last Admin: 09/17/18 22:56 Dose: 0.5 mg Magnesium Hydroxide (Milk Of Magnesia) 30 ml PO HS PRN PRN Reason: Constipation Stop: 11/16/18 19:17 Multivitamins/Vitamin C (Theragran) 1 tab PO DAILY [facility] Stop: 11/17/18 08:59 Last Admin: 09/18/18 08:46 Dose: Not Given Naproxen (Naprosyn) 500 mg PO BID PRN PRN Reason: PAIN Stop: 11/16/18 19:17 Nystatin (Nystop) 100 units TP BID [facility] Stop: 11/17/18 16:59 Pantoprazole Sodium (Protonix) 40 mg PO DAILY [facility] Stop: 11/17/18 08:59 Last Admin: 09/18/18 08:46 Dose: 40 mg Quetiapine Fumarate (Seroquel) 12.5 mg PO BID [facility]; Protocol Stop: 11/17/18 16:59 Senna (Senna) 8.6 mg PO HS [facility] Stop: 11/16/18 20:59 Last Admin: 09/17/18 21:16 Dose: Not Given Sodium Phosphate (Fleet Enema) 135 ml RC Q48H PRN PRN Reason: IF DULCOLAX INEFFECTIVE Stop: 11/16/18 19:17 Zolpidem Tartrate (Ambien) 5 mg PO HS PRN PRN Reason: Insomnia Stop: 11/16/18 20:59 Last Admin: 09/17/18 21:30 Dose: 5 mg General: Alert, No acute distress HEENT: Atraumatic, PERRLA, EOMI Neck: Supple Cardiovascular: Regular rate Lungs: Clear to auscultation Psych/Mental Status: Other (pt. confused) Assessment/Plan - Problem List Patient Problems: All Active Problems HALLUCINATIONS AND GROIN RASH (Acute) - Assessment Assessment: psychosis bipolar disorder h/o htn h/o seizures h/o thyroid disorder - Plan Plan: cpm
[2018-09-18] MEDS: NYSTATIN 100000 UNITS/GM POWD TP SCH (16:49)
[2018-09-19] MEDS: Levothyroxine 0.075 Mg Tab PO SCH (09:00)
[2018-09-19] MEDS: Multivitamin Tab PO SCH (09:01)
[2018-09-19] MEDS: Pantoprazole 40 mg EC Tab PO SCH (09:01)
[2018-09-19] MEDS: NYSTATIN 100000 UNITS/GM POWD TP SCH ×2 (09:03→17:59)
--- NOTE | 2018-09-19 15:43 | General Progress Note ---
Subjective - Review of Systems Events since last encounter: pt. agitated and paranoid, still confused Objective - Results Result Diagrams: 09/17/18 13:00 09/17/18 13:00 Recent Labs: Laboratory Last Values WBC 10.3 Th/cmm (4.8-10.8) 09/17/18 13:00 RBC 4.29 Mil/cmm (3.80-5.20) 09/17/18 13:00 Hgb 13.8 gm/dL (12-16) 09/17/18 13:00 Hct 39.9 % (41.0-60) L 09/17/18 13:00 MCV 93.1 fl (81-100) 09/17/18 13:00 MCH 32.3 pg (27.0-31.0) H 09/17/18 13:00 MCHC Differential 34.7 pg (28.0-36.0) 09/17/18 13:00 RDW 11.9 % (11.5-20.0) 09/17/18 13:00 Plt Count 342 Th/cmm (150-400) 09/17/18 13:00 MPV 7.4 fl 09/17/18 13:00 Neutrophils % 70.5 % (40.0-80.0) 09/17/18 13:00 Lymphocytes % 15.1 % (20.0-50.0) L 09/17/18 13:00 Monocytes % 12.7 % (2.0-10.0) H 09/17/18 13:00 Eosinophils % 1.1 % (0.0-5.0) 09/17/18 13:00 Basophils % 0.6 % (0.0-2.0) 09/17/18 13:00 Sodium 135 mEq/L (136-145) L 09/17/18 13:00 Potassium 3.2 mEq/L (3.5-5.1) L 09/17/18 13:00 Chloride 98 mEq/L (98-107) 09/17/18 13:00 Carbon Dioxide 27.6 mEq/L (21.0-31.0) 09/17/18 13:00 Anion Gap 12.6 (7.0-16.0) 09/17/18 13:00 BUN 7 mg/dL (7-25) 09/17/18 13:00 Creatinine 0.6 mg/dL (0.6-1.2) 09/17/18 13:00 Est GFR ( Amer) TNP 09/17/18 13:00 Est GFR (Non-Af Amer) TNP 09/17/18 13:00 BUN/Creatinine Ratio 11.7 09/17/18 13:00 Glucose 100 mg/dL (70-105) 09/17/18 13:00 Calcium 9.4 mg/dL (8.6-10.3) 09/17/18 13:00 Total Bilirubin 0.4 mg/dL (0.3-1.0) 09/17/18 13:00 AST 16 U/L (13-39) 09/17/18 13:00 ALT 15 U/L (7-52) 09/17/18 13:00 Alkaline Phosphatase 58 U/L (34-104) 09/17/18 13:00 Troponin I 0.01 ng/mL (0.01-0.05) 09/17/18 13:00 Total Protein 6.8 gm/dL (6.0-8.3) 09/17/18 13:00 Albumin 3.7 gm/dL (3.7-5.3) 09/17/18 13:00 Globulin 3.1 gm/dL 09/17/18 13:00 Albumin/Globulin Ratio 1.2 (1.0-1.8) 09/17/18 13:00 Triglycerides 52 mg/dL (<150) 09/17/18 13:00 Cholesterol 186 mg/dL (<200) 09/17/18 13:00 LDL Cholesterol Direct 56 mg/dL (75-193) L 09/17/18 13:00 HDL Cholesterol 95 mg/dL (23-92) H 09/17/18 13:00 TSH 2.25 uIU/ml (0.34-5.60) 09/17/18 13:00 Urine Source CLEAN C 09/17/18 13:20 Urine Color YELLOW 09/17/18 13:20 Urine Clarity CLEAR (CLEAR) 09/17/18 13:20 Urine pH 7.0 (4.6 - 8.0) 09/17/18 13:20 Ur Specific Mode 1.020 (1.005-1.030) 09/17/18 13:20 Urine Protein 30 mg/dL (NEGATIVE) H 09/17/18 13:20 Urine Glucose (UA) >=1000 mg/dL (NEGATIVE) H 09/17/18 13:20 Urine Ketones NEGATIVE mg/dL (NEGATIVE) 09/17/18 13:20 Urine Blood NEGATIVE (NEGATIVE) 09/17/18 13:20 Urine Nitrate NEGATIVE (NEGATIVE) 09/17/18 13:20 Urine Bilirubin NEGATIVE (NEGATIVE) 09/17/18 13:20 Urine Urobilinogen 0.2 E.U./dL (0.2 - 1.0) 09/17/18 13:20 Ur Leukocyte Esterase NEGATIVE (NEGATIVE) 09/17/18 13:20 Urine RBC NONE SEEN /hpf (0-5) 09/17/18 13:20 Urine WBC 0-2 /hpf (0-5) 09/17/18 13:20 Ur Epithelial Cells NONE SEEN /lpf (FEW) 09/17/18 13:20 Urine Bacteria NONE SEEN /hpf (NONE SEEN) 09/17/18 13:20 Salicylates < 25.0 mg/L (30.0-100.0) L 09/17/18 13:00 Urine Opiates Screen NEGATIVE (NEGATIVE) 09/17/18 13:20 Urine Methadone Screen NEGATIVE (NEGATIVE) 09/17/18 13:20 Acetaminophen < 10.0 ug/mL (10.0-30.0) L 09/17/18 13:00 Ur Barbiturates Screen NEGATIVE (NEGATIVE) 09/17/18 13:20 Ur Tricyclics Screen NEGATIVE (NEGATIVE) 09/17/18 13:20 Ur Phencyclidine Scrn NEGATIVE (NEGATIVE) 09/17/18 13:20 Amphetamines Screen NEGATIVE (NEGATIVE) 09/17/18 13:20 U Methamphetamines Scrn NEGATIVE (NEGATIVE) 09/17/18 13:20 U Benzodiazepines Scrn NEGATIVE (NEGATIVE) 09/17/18 13:20 U Cocaine Metab Screen NEGATIVE (NEGATIVE) 09/17/18 13:20 U Cannabinoids Screen NEGATIVE (NEGATIVE) 09/17/18 13:20 Ethyl Alcohol < 10 mg/dL (0-10) 09/17/18 13:00 - Physical Exam Vitals and I&O: Vital Signs Temp 97.2 F 09/19/18 06:51 Pulse 84 09/19/18 09:01 Resp 18 09/19/18 10:51 BP 148/75 01/03/19 09:01 Pulse Ox 99 09/19/18 06:51 Intake & Output 09/18/18 09/19/18 09/19/18 18:59 06:59 18:59 Intake Total 1200 520 Balance 1200 520 Intake: Oral 1200 520 Other: # Voids 4 2 # Bowel Movements 0 Active Medications: Current Medications Acetaminophen (Tylenol) 650 mg PO Q4H PRN PRN Reason: Mild Pain / Temp above 100 Stop: 11/16/18 14:58 Acetaminophen (Tylenol Extra Strength) 1,000 mg PO Q8H PRN PRN Reason: MOD/SEVERE PAIN Stop: 11/16/18 19:17 Al Hydrox/Mg Hydrox/Simethicone (Maalox) 30 ml PO Q4H PRN PRN Reason: GI DISTRESS Stop: 11/16/18 15:59 Bisacodyl (Dulcolax 10 Mg Supp) 10 mg RC DAILY PRN PRN Reason: IF MOM INEFFECTIVE Stop: 11/16/18 19:17 Brimonidine Tartrate (Alphagan 0.2% Ophth Soln) 1 drop EACH EYE BID [facility] Stop: 11/17/18 08:59 Last Admin: 09/19/18 09:03 Dose: 1 drop Diphenhydramine HCl (Benadryl) 50 mg PO TID PRN PRN Reason: Itching Stop: 11/16/18 23:27 Last Admin: 09/19/18 09:07 Dose: 50 mg Docusate Sodium (Colace) 200 mg PO HS [facility] Stop: 11/16/18 21:26 Last Admin: 09/18/18 20:35 Dose: 200 mg Donepezil HCl (Aricept) 5 mg PO HS [facility] Stop: 11/17/18 20:59 Last Admin: 09/18/18 20:36 Dose: 5 mg Latanoprost (Xalatan 0.005% Ophth Soln) 1 drop EACH EYE HS [facility] Stop: 11/16/18 20:59 Last Admin: 09/18/18 20:35 Dose: 1 drop Levothyroxine Sodium (Synthroid) 0.075 mg PO DAILY [facility] Stop: 11/17/18 08:59 Last Admin: 09/19/18 09:00 Dose: 0.075 mg Lisinopril (Zestril) 10 mg PO DAILY [facility] Stop: 11/17/18 08:59 Last Admin: 09/19/18 09:01 Dose: 10 mg Lorazepam (Ativan) 0.5 mg PO Q4H PRN; Protocol PRN Reason: Agitation Stop: 11/16/18 15:59 Last Admin: 09/17/18 22:56 Dose: 0.5 mg Magnesium Hydroxide (Milk Of Magnesia) 30 ml PO HS PRN PRN Reason: Constipation Stop: 11/16/18 19:17 Multivitamins/Vitamin C (Theragran) 1 tab PO DAILY [facility] Stop: 11/17/18 08:59 Last Admin: 09/19/18 09:01 Dose: 1 tab Naproxen (Naprosyn) 500 mg PO BID PRN PRN Reason: PAIN Stop: 11/16/18 19:17 Nystatin (Nystop) 100 units TP BID [facility] Stop: 11/17/18 16:59 Last Admin: 09/19/18 09:03 Dose: 100 units Pantoprazole Sodium (Protonix) 40 mg PO DAILY [facility] Stop: 11/17/18 08:59 Last Admin: 09/19/18 09:01 Dose: 40 mg Quetiapine Fumarate (Seroquel) 12.5 mg PO BID [facility]; Protocol Stop: 11/17/18 16:59 Last Admin: 09/19/18 09:00 Dose: 12.5 mg Senna (Senna) 8.6 mg PO HS [facility] Stop: 11/16/18 20:59 Last Admin: 09/18/18 20:36 Dose: 8.6 mg Sodium Phosphate (Fleet Enema) 135 ml RC Q48H PRN PRN Reason: IF DULCOLAX INEFFECTIVE Stop: 11/16/18 19:17 Zolpidem Tartrate (Ambien) 5 mg PO HS PRN PRN Reason: Insomnia Stop: 11/16/18 20:59 Last Admin: 09/18/18 20:36 Dose: 5 mg General: Alert, No acute distress HEENT: Atraumatic, PERRLA, EOMI Neck: Supple Cardiovascular: Regular rate Lungs: Clear to auscultation Psych/Mental Status: Other (pt. confused) Assessment/Plan - Problem List Patient Problems: All Active Problems HALLUCINATIONS AND GROIN RASH (Acute) - Assessment Assessment: psychosis bipolar disorder h/o htn h/o seizures h/o thyroid disorder - Plan Plan: cpm Nutritional Asmnt/Malnutr-PDOC - Dietary Evaluation Malnutrition Findings (Please click <Entered> for more info): Nutritional Asmnt/Malnutrition Start: 09/19/18 12: 47 Text: Status: Complete Freq: Protocol: Document 09/19/18 12:47 [email or web address] (Rec: 09/19/18 13:05 [email or web address]) Nutritional Asmnt/Malnutrition Patient General Information Nutritional Screening Moderate Risk Consult Diagnosis psychosis Pertinent Medical Hx/Surgical Hx HTN, seizures, thyroid disorder, schizophrenia, bipolar Subjective Information Consult received for wounds. Pt seen sleeping in bed at time of visit. PO intake is 25 -75% per EMR Current Diet Order/ Nutrition Support regular Pertinent Medications colace, synthroid, theragran, protonix, seroquel, ambien Pertinent Labs 09/17 glucose 100, Na 135, potassium 3.2, LDL 56, HDL 95 Nutritional Hx/Data Height 1.57 m Height (Calculated Centimeters) 157.5 Current Weight (lbs) 42.638 kg Weight (Calculated Kilograms) 42.6 Weight (Calculated Grams) 82498.7 [place] Body Weight 110 Body Mass Index (BMI) 17.2 Weight Status Underweight GI Symptoms GI Symptoms None Last BM not indicated Difficult in: None Food Allergies No Skin Integrity/Comment: right lower extremity wounds jim 16 Current %PO Fair (50-74%) Estimated Nutritional Goals BEE in Kcals: Using Current wt Calories/Kcals/Kg 27-32 Kcals Calculated 4301-1232 Protein: Using Current wt Protein g/k-1.2 Protein Calculated 42-51 Fluid: ml 1451-2918 Nutritional Problem 1. Problem Problem underweight Etiology possible inadequate calorie- protein intake Signs/Symptoms: BMI 17.2 and PO intake 25-75% per EMR Malnutrition Alert Is there a minimum of two criteria No selected? Query Text:Check all the applicable criteria. A minimum of two criteria are recommended for diagnosis of either severe or non-severe malnutrition. Malnutrition Related to Morbid Obesity Malnutrition related to morbid obesity No Intervention/Recommendation Comments 1. Continue with regular diet as ordered. 2. Consider adding supplements for extra calories and wound healing. 3. Monitor PO intake, wt, labs and skin integrity 4. F/U as moderate risk in 3-5 days, 09/22-09/24 Expected Outcomes/Goals Expected Outcomes/Goals Goal: PO intake to meet at least 75% of nutritional needs , improved labs and skin integrity. Reviewed by Sharyn Krause RD
--- NOTE | 2018-09-20 09:15 | Progress Notes ---
DATE: 09/19/2018 Case was discussed with staff of the patient, reviewed records. The patient continues to have poor insight. Continues to be easily agitated, continues to be paranoid, isolating herself in her room, unable to participate in meaningful conversation or make safe plan for self care. She was able to tell me the date, unpredictable and impulsive. No side effects with the medication, no sedation, no nausea. Initiated Aricept on her yesterday and she is on Seroquel and initiated Seroquel yesterday 12.5 mg twice a day. No side effects, no sedation, no nausea, no extrapyramidal symptoms. We will continue to work with the patient in group therapy, milieu therapy, and adjust medication as needed. JOB# [id number] MTDD
[2018-09-20] MEDS: Multivitamin Tab PO SCH (09:45)
[2018-09-20] MEDS: Levothyroxine 0.075 Mg Tab PO SCH (09:45)
[2018-09-20] MEDS: Pantoprazole 40 mg EC Tab PO SCH (09:46)
[2018-09-20] MEDS: NYSTATIN 100000 UNITS/GM POWD TP SCH ×2 (09:47→16:58)
--- NOTE | 2018-09-20 14:40 | Progress Notes ---
DATE: 09/20/2018 Case was discussed with staff of the patient, reviewed records. The patient continues to be agitated, paranoid, continues to have poor insight, continues to be unable to make safe plan for self-care, unpredictable, impulsive, needing redirection. She is paranoid. She does not like the staff here. She tell them I don't like [place], very inappropriate, impulsive, unpredictable. I initiated her on Seroquel and Aricept. We will continue with the patient in group therapy, milieu therapy, and adjust medications as needed. JOB# [id number]
[2018-09-21] MEDS: NYSTATIN 100000 UNITS/GM POWD TP SCH ×2 (08:58→17:36)
[2018-09-21] MEDS: Levothyroxine 0.075 Mg Tab PO SCH (08:59)
[2018-09-21] MEDS: Multivitamin Tab PO SCH (08:59)
[2018-09-21] MEDS: Pantoprazole 40 mg EC Tab PO SCH (08:59)
--- NOTE | 2018-09-21 19:34 | Progress Notes ---
DATE: 09/21/2018 SUBJECTIVE: The patient was seen in her room. The patient is asleep, but easily arousable. The patient is a poor historian and appears to be confused and guarded. The patient still has some episodes of behavioral outbursts. She continues to be paranoid. Otherwise, the patient appears to be in no acute distress. OBJECTIVE: VITAL SIGNS: Temperature 98.1, heart rate of 83, blood pressure 157/77, respirations of 18 and 95% on room air. HEENT: Head is atraumatic and normocephalic. Eyes: Bilateral conjunctivae are clear. Bilateral pupils are equally round and reactive. NECK: Supple. No JVD. CARDIOVASCULAR: S1 and S2, without murmur. PULMONARY: Clear to auscultation. GASTROINTESTINAL: Soft and nontender without guarding. Positive bowel sounds. MUSCULOSKELETAL: No clubbing. No cyanosis noted. ASSESSMENT: 1. Dementia. 2. Agitation. 3. Hypothyroidism. 4. Hypertension. 5. Glaucoma. 6. Osteoarthritis. PLAN: We will keep the patient inpatient Psychiatric Unit. We will follow up with the patient's psychiatrist to monitor the patient's condition and behavior. Treatment plans were discussed with the patient's nurse. Treatment plans were discussed with Dr. Cohen. JOB# [id number]
--- NOTE | 2018-09-22 07:39 | Progress Notes ---
DATE: 09/21/2018 SUBJECTIVE: The patient was seen and evaluated. The patient's chart reviewed. This is Dr. Barcenas covering for Dr. Apdoaca. IDENTIFYING DATA: She is a 73-year-old female who was brought in here for increased confusion, hallucinations and presented also easily very agitated. CURRENT MEDICATIONS: The patient is on Aricept 5 mg, recently started on 09/18/2018; lisinopril; Synthroid; quetiapine 12.5 mg b.i.d. Today on [id number] evaluation, the patient is irritable, agitated, refusing interview ____ to discuss and whether her emotions have become more irritable and refuses interview. ASSESSMENT AND PLAN: The patient given her muscle side effects and continues to be unpredictable, easily agitated, irritable, unable to formulate a safe plan outside of structured environment. We will continue with primary psychiatrist's treatment plan and goals for continuous the patient's unpredictable and agitated state. JOB# [id number]
[2018-09-22] MEDS: Multivitamin Tab PO SCH (10:00)
[2018-09-22] MEDS: Pantoprazole 40 mg EC Tab PO SCH (10:00)
[2018-09-22] MEDS: NYSTATIN 100000 UNITS/GM POWD TP SCH ×2 (10:00→18:00)
[2018-09-22] MEDS: Levothyroxine 0.075 Mg Tab PO SCH (10:00)
--- NOTE | 2018-09-23 05:38 | Progress Notes ---
DATE: 09/22/2018 SUBJECTIVE: The patient was seen and evaluated. The patient's chart reviewed. Today on [id number] evaluation, she is extremely paranoid and agitated upon approaching the patient and refusing to talk to me, does not know who I am and becomes more irritable when further step validating her emotions. MENTAL STATUS EXAMINATION: The patient is overwhelmed. ASSESSMENT AND PLAN: Continues to be suspicious and paranoid. Seroquel and Aricept was recently initiated to continue to reach steady state to target the patient's residual suspicious and paranoid state. JOB# [id number]
[2018-09-23] MEDS: Multivitamin Tab PO SCH (09:23)
[2018-09-23] MEDS: Pantoprazole 40 mg EC Tab PO SCH (09:23)
[2018-09-23] MEDS: Levothyroxine 0.075 Mg Tab PO SCH (09:26)
[2018-09-23] MEDS: NYSTATIN 100000 UNITS/GM POWD TP SCH ×2 (09:29→17:45)
--- NOTE | 2018-09-23 14:36 | Progress Notes ---
DATE: 09/23/2018 Case was discussed with staff of the patient, reviewed records. The patient continues to be paranoid, agitated. The patient, however, has been taking the medication, which is different from what I was told on Sunday, 3 days ago, that ____ the staff reports she is taking it. She has been easily agitated, irritable, continues to be not at her basic level of functioning. No side effects with the medication, no sedation, no nausea, no extrapyramidal symptoms. I will be increasing her Seroquel since she is taking it now to 25 mg twice a day and will continue with the patient in group therapy, milieu therapy, adjust the medication as needed. [facility]# [id number]
--- NOTE | 2018-09-23 15:41 | Internal Medicine Prog Note ---
Internal Medicine Subjective - Subjective Patient seen and examined:: chart reviewed Patient is:: awake, other (irritabl confused, paranoid ) Per staff patient has:: no adverse event Internal Medicine Objective - Results Result Diagrams: 09/17/18 13:00 09/17/18 13:00 Recent Labs: Laboratory Last Values WBC 10.3 Th/cmm (4.8-10.8) 09/17/18 13:00 RBC 4.29 Mil/cmm (3.80-5.20) 09/17/18 13:00 Hgb 13.8 gm/dL (12-16) 09/17/18 13:00 Hct 39.9 % (41.0-60) L 09/17/18 13:00 MCV 93.1 fl (81-100) 09/17/18 13:00 MCH 32.3 pg (27.0-31.0) H 09/17/18 13:00 MCHC Differential 34.7 pg (28.0-36.0) 09/17/18 13:00 RDW 11.9 % (11.5-20.0) 09/17/18 13:00 Plt Count 342 Th/cmm (150-400) 09/17/18 13:00 MPV 7.4 fl 09/17/18 13:00 Neutrophils % 70.5 % (40.0-80.0) 09/17/18 13:00 Lymphocytes % 15.1 % (20.0-50.0) L 09/17/18 13:00 Monocytes % 12.7 % (2.0-10.0) H 09/17/18 13:00 Eosinophils % 1.1 % (0.0-5.0) 09/17/18 13:00 Basophils % 0.6 % (0.0-2.0) 09/17/18 13:00 Sodium 135 mEq/L (136-145) L 09/17/18 13:00 Potassium 3.2 mEq/L (3.5-5.1) L 09/17/18 13:00 Chloride 98 mEq/L (98-107) 09/17/18 13:00 Carbon Dioxide 27.6 mEq/L (21.0-31.0) 09/17/18 13:00 Anion Gap 12.6 (7.0-16.0) 09/17/18 13:00 BUN 7 mg/dL (7-25) 09/17/18 13:00 Creatinine 0.6 mg/dL (0.6-1.2) 09/17/18 13:00 Est GFR ( Amer) TNP 09/17/18 13:00 Est GFR (Non-Af Amer) TNP 09/17/18 13:00 BUN/Creatinine Ratio 11.7 09/17/18 13:00 Glucose 100 mg/dL (70-105) 09/17/18 13:00 Calcium 9.4 mg/dL (8.6-10.3) 09/17/18 13:00 Total Bilirubin 0.4 mg/dL (0.3-1.0) 09/17/18 13:00 AST 16 U/L (13-39) 09/17/18 13:00 ALT 15 U/L (7-52) 09/17/18 13:00 Alkaline Phosphatase 58 U/L (34-104) 09/17/18 13:00 Troponin I 0.01 ng/mL (0.01-0.05) 09/17/18 13:00 Total Protein 6.8 gm/dL (6.0-8.3) 09/17/18 13:00 Albumin 3.7 gm/dL (3.7-5.3) 09/17/18 13:00 Globulin 3.1 gm/dL 09/17/18 13:00 Albumin/Globulin Ratio 1.2 (1.0-1.8) 09/17/18 13:00 Triglycerides 52 mg/dL (<150) 09/17/18 13:00 Cholesterol 186 mg/dL (<200) 09/17/18 13:00 LDL Cholesterol Direct 56 mg/dL (75-193) L 09/17/18 13:00 HDL Cholesterol 95 mg/dL (23-92) H 09/17/18 13:00 TSH 2.25 uIU/ml (0.34-5.60) 09/17/18 13:00 Urine Source CLEAN C 09/17/18 13:20 Urine Color YELLOW 09/17/18 13:20 Urine Clarity CLEAR (CLEAR) 09/17/18 13:20 Urine pH 7.0 (4.6 - 8.0) 09/17/18 13:20 Ur Specific [place] 1.020 (1.005-1.030) 09/17/18 13:20 Urine Protein 30 mg/dL (NEGATIVE) H 09/17/18 13:20 Urine Glucose (UA) >=1000 mg/dL (NEGATIVE) H 09/17/18 13:20 Urine Ketones NEGATIVE mg/dL (NEGATIVE) 09/17/18 13:20 Urine Blood NEGATIVE (NEGATIVE) 09/17/18 13:20 Urine Nitrate NEGATIVE (NEGATIVE) 09/17/18 13:20 Urine Bilirubin NEGATIVE (NEGATIVE) 09/17/18 13:20 Urine Urobilinogen 0.2 E.U./dL (0.2 - 1.0) 09/17/18 13:20 Ur Leukocyte Esterase NEGATIVE (NEGATIVE) 09/17/18 13:20 Urine RBC NONE SEEN /hpf (0-5) 09/17/18 13:20 Urine WBC 0-2 /hpf (0-5) 09/17/18 13:20 Ur Epithelial Cells NONE SEEN /lpf (FEW) 09/17/18 13:20 Urine Bacteria NONE SEEN /hpf (NONE SEEN) 09/17/18 13:20 Salicylates < 25.0 mg/L (30.0-100.0) L 09/17/18 13:00 Urine Opiates Screen NEGATIVE (NEGATIVE) 09/17/18 13:20 Urine Methadone Screen NEGATIVE (NEGATIVE) 09/17/18 13:20 Acetaminophen < 10.0 ug/mL (10.0-30.0) L 09/17/18 13:00 Ur Barbiturates Screen NEGATIVE (NEGATIVE) 09/17/18 13:20 Ur Tricyclics Screen NEGATIVE (NEGATIVE) 09/17/18 13:20 Ur Phencyclidine Scrn NEGATIVE (NEGATIVE) 09/17/18 13:20 Amphetamines Screen NEGATIVE (NEGATIVE) 09/17/18 13:20 U Methamphetamines Scrn NEGATIVE (NEGATIVE) 09/17/18 13:20 U Benzodiazepines Scrn NEGATIVE (NEGATIVE) 09/17/18 13:20 U Cocaine Metab Screen NEGATIVE (NEGATIVE) 09/17/18 13:20 U Cannabinoids Screen NEGATIVE (NEGATIVE) 09/17/18 13:20 Ethyl Alcohol < 10 mg/dL (0-10) 09/17/18 13:00 RPR NONREACTIVE (NONREACTIVE) 09/17/18 13:00 - Physical Exam Vitals and I&O: Vital Signs Temp 97.8 F 09/23/18 06:18 Pulse 85 09/23/18 09:25 Resp 20 09/23/18 06:18 BP 143/90 09/23/18 09:25 Pulse Ox 95 09/23/18 06:18 Intake & Output 09/22/18 09/23/18 09/23/18 18:59 06:59 18:59 Intake Total 3 240 Balance 3 240 Intake: Oral 3 240 Other: # Voids 3 2 # Bowel Movements 1 0 Active Medications: Current Medications Acetaminophen (Tylenol) 650 mg PO Q4H PRN PRN Reason: Mild Pain / Temp above 100 Stop: 11/16/18 14:58 Acetaminophen (Tylenol Extra Strength) 1,000 mg PO Q8H PRN PRN Reason: MOD/SEVERE PAIN Stop: 11/16/18 19:17 Al Hydrox/Mg Hydrox/Simethicone (Maalox) 30 ml PO Q4H PRN PRN Reason: GI DISTRESS Stop: 11/16/18 15:59 Bisacodyl (Dulcolax 10 Mg Supp) 10 mg RC DAILY PRN PRN Reason: IF MOM INEFFECTIVE Stop: 11/16/18 19:17 Brimonidine Tartrate (Alphagan 0.2% Ophth Soln) 1 drop EACH EYE BID [facility] Stop: 11/17/18 08:59 Last Admin: 09/23/18 09:28 Dose: 1 drop Diphenhydramine HCl (Benadryl) 50 mg PO TID PRN PRN Reason: Itching Stop: 11/16/18 23:27 Last Admin: 09/21/18 02:50 Dose: 50 mg Docusate Sodium (Colace) 200 mg PO HS [facility] Stop: 11/16/18 21:26 Last Admin: 09/22/18 20:13 Dose: 200 mg Donepezil HCl (Aricept) 5 mg PO HS [facility] Stop: 11/17/18 20:59 Last Admin: 09/22/18 20:14 Dose: 5 mg Latanoprost (Xalatan 0.005% Ophth Soln) 1 drop EACH EYE HS [facility] Stop: 11/16/18 20:59 Last Admin: 09/22/18 20:14 Dose: 1 drop Levothyroxine Sodium (Synthroid) 0.075 mg PO DAILY [facility] Stop: 11/17/18 08:59 Last Admin: 09/23/18 09:26 Dose: 0.075 mg Lisinopril (Zestril) 10 mg PO DAILY [facility] Stop: 11/17/18 08:59 Last Admin: 09/23/18 09:25 Dose: 10 mg Lorazepam (Ativan) 0.5 mg PO Q4H PRN; Protocol PRN Reason: Agitation Stop: 11/16/18 15:59 Last Admin: 09/17/18 22:56 Dose: 0.5 mg Magnesium Hydroxide (Milk Of Magnesia) 30 ml PO HS PRN PRN Reason: Constipation Stop: 11/16/18 19:17 Multivitamins/Vitamin C (Theragran) 1 tab PO DAILY [facility] Stop: 11/17/18 08:59 Last Admin: 09/23/18 09:23 Dose: 1 tab Naproxen (Naprosyn) 500 mg PO BID PRN PRN Reason: PAIN Stop: 11/16/18 19:17 Nystatin (Nystop) 100 units TP BID [facility] Stop: 11/17/18 16:59 Last Admin: 09/23/18 09:29 Dose: 100 units Pantoprazole Sodium (Protonix) 40 mg PO DAILY [facility] Stop: 11/17/18 08:59 Last Admin: 09/23/18 09:23 Dose: 40 mg Quetiapine Fumarate (Seroquel) 25 mg PO BID [facility]CLUD[facility]; Protocol Stop: 11/22/18 16:59 Senna (Senna) 8.6 mg PO HS COUNT INCLUDES THE [facility] Stop: 11/16/18 20:59 Last Admin: 09/22/18 20:14 Dose: 8.6 mg Sodium Phosphate (Fleet Enema) 135 ml RC Q48H PRN PRN Reason: IF DULCOLAX INEFFECTIVE Stop: 11/16/18 19:17 Zolpidem Tartrate (Ambien) 5 mg PO HS PRN PRN Reason: Insomnia Stop: 11/16/18 20:59 Last Admin: 09/22/18 20:14 Dose: 5 mg General: demented HEENT: NC/AT Neck: Supple Lungs: CTAB Cardiovascular: RRR, Normal S1, Normal S2 Abdomen: soft, non-tender Extremities: clear, edema Neurological: no change Internal Medicine Assmt/Plan - Assessment Assessment: psychosis bipolar disorder h/o htn h/o seizures h/o thyroid disorder - Plan Plan: as per psych will monitor Nutritional Asmnt/Malnutr-PDOC - Dietary Evaluation Malnutrition Findings (Please click <Entered> for more info): Nutritional Asmnt/Malnutrition Start: 09/19/18 12: 47 Text: Status: Complete Freq: Protocol: Document 09/19/18 12:47 [email or web address] (Rec: 09/19/18 13:05 [email or web address]) Nutritional Asmnt/Malnutrition Patient General Information Nutritional Screening Moderate Risk Consult Diagnosis psychosis Pertinent Medical Hx/Surgical Hx HTN, seizures, thyroid disorder, schizophrenia, bipolar Subjective Information Consult received for wounds. Pt seen sleeping in bed at time of visit. PO intake is 25 -75% per EMR Current Diet Order/ Nutrition Support regular Pertinent Medications colace, synthroid, theragran, protonix, seroquel, ambien Pertinent Labs 09/17 glucose 100, Na 135, potassium 3.2, LDL 56, HDL 95 Nutritional Hx/Data Height 1.57 m Height (Calculated Centimeters) 157.5 Current Weight (lbs) 42.638 kg Weight (Calculated Kilograms) 42.6 Weight (Calculated Grams) 49399.7 [place] Body Weight 110 Body Mass Index (BMI) 17.2 Weight Status Underweight GI Symptoms GI Symptoms None Last BM not indicated Difficult in: None Food Allergies No Skin Integrity/Comment: right lower extremity wounds jim 16 Current %PO Fair (50-74%) Estimated Nutritional Goals BEE in Kcals: Using Current wt Calories/Kcals/Kg 27-32 Kcals Calculated 2812-0260 Protein: Using Current wt Protein g/k-1.2 Protein Calculated 42-51 Fluid: ml 5613-1498 Nutritional Problem 1. Problem Problem underweight Etiology possible inadequate calorie- protein intake Signs/Symptoms: BMI 17.2 and PO intake 25-75% per EMR Malnutrition Alert Is there a minimum of two criteria No selected? Query Text:Check all the applicable criteria. A minimum of two criteria are recommended for diagnosis of either severe or non-severe malnutrition. Malnutrition Related to Morbid Obesity Malnutrition related to morbid obesity No Intervention/Recommendation Comments 1. Continue with regular diet as ordered. 2. Consider adding supplements for extra calories and wound healing. 3. Monitor PO intake, wt, labs and skin integrity 4. F/U as moderate risk in 3-5 days, 09/22-09/24 Expected Outcomes/Goals Expected Outcomes/Goals Goal: PO intake to meet at least 75% of nutritional needs , improved labs and skin integrity. Reviewed by Sharyn Krause RD
[2018-09-24] MEDS: Pantoprazole 40 mg EC Tab PO SCH (08:51)
[2018-09-24] MEDS: Multivitamin Tab PO SCH (08:51)
[2018-09-24] MEDS: Levothyroxine 0.075 Mg Tab PO SCH (08:51)
--- NOTE | 2018-09-24 13:55 | Internal Medicine Prog Note ---
Internal Medicine Subjective - Subjective Service Date: 09/24/18 Patient is:: awake, other (irritabl confused, paranoid ) Per staff patient has:: no adverse event Internal Medicine Objective - Results Result Diagrams: 09/17/18 13:00 09/17/18 13:00 Recent Labs: Laboratory Last Values WBC 10.3 Th/cmm (4.8-10.8) 09/17/18 13:00 RBC 4.29 Mil/cmm (3.80-5.20) 09/17/18 13:00 Hgb 13.8 gm/dL (12-16) 09/17/18 13:00 Hct 39.9 % (41.0-60) L 09/17/18 13:00 MCV 93.1 fl (81-100) 09/17/18 13:00 MCH 32.3 pg (27.0-31.0) H 09/17/18 13:00 MCHC Differential 34.7 pg (28.0-36.0) 09/17/18 13:00 RDW 11.9 % (11.5-20.0) 09/17/18 13:00 Plt Count 342 Th/cmm (150-400) 09/17/18 13:00 MPV 7.4 fl 09/17/18 13:00 Neutrophils % 70.5 % (40.0-80.0) 09/17/18 13:00 Lymphocytes % 15.1 % (20.0-50.0) L 09/17/18 13:00 Monocytes % 12.7 % (2.0-10.0) H 09/17/18 13:00 Eosinophils % 1.1 % (0.0-5.0) 09/17/18 13:00 Basophils % 0.6 % (0.0-2.0) 09/17/18 13:00 Sodium 135 mEq/L (136-145) L 09/17/18 13:00 Potassium 3.2 mEq/L (3.5-5.1) L 09/17/18 13:00 Chloride 98 mEq/L (98-107) 09/17/18 13:00 Carbon Dioxide 27.6 mEq/L (21.0-31.0) 09/17/18 13:00 Anion Gap 12.6 (7.0-16.0) 09/17/18 13:00 BUN 7 mg/dL (7-25) 09/17/18 13:00 Creatinine 0.6 mg/dL (0.6-1.2) 09/17/18 13:00 Est GFR ( Amer) TNP 09/17/18 13:00 Est GFR (Non-Af Amer) TNP 09/17/18 13:00 BUN/Creatinine Ratio 11.7 09/17/18 13:00 Glucose 100 mg/dL (70-105) 09/17/18 13:00 Calcium 9.4 mg/dL (8.6-10.3) 09/17/18 13:00 Total Bilirubin 0.4 mg/dL (0.3-1.0) 09/17/18 13:00 AST 16 U/L (13-39) 09/17/18 13:00 ALT 15 U/L (7-52) 09/17/18 13:00 Alkaline Phosphatase 58 U/L (34-104) 09/17/18 13:00 Troponin I 0.01 ng/mL (0.01-0.05) 09/17/18 13:00 Total Protein 6.8 gm/dL (6.0-8.3) 09/17/18 13:00 Albumin 3.7 gm/dL (3.7-5.3) 09/17/18 13:00 Globulin 3.1 gm/dL 09/17/18 13:00 Albumin/Globulin Ratio 1.2 (1.0-1.8) 09/17/18 13:00 Triglycerides 52 mg/dL (<150) 09/17/18 13:00 Cholesterol 186 mg/dL (<200) 09/17/18 13:00 LDL Cholesterol Direct 56 mg/dL (75-193) L 09/17/18 13:00 HDL Cholesterol 95 mg/dL (23-92) H 09/17/18 13:00 TSH 2.25 uIU/ml (0.34-5.60) 09/17/18 13:00 Urine Source CLEAN C 09/17/18 13:20 Urine Color YELLOW 09/17/18 13:20 Urine Clarity CLEAR (CLEAR) 09/17/18 13:20 Urine pH 7.0 (4.6 - 8.0) 09/17/18 13:20 Ur Specific [place] 1.020 (1.005-1.030) 09/17/18 13:20 Urine Protein 30 mg/dL (NEGATIVE) H 09/17/18 13:20 Urine Glucose (UA) >=1000 mg/dL (NEGATIVE) H 09/17/18 13:20 Urine Ketones NEGATIVE mg/dL (NEGATIVE) 09/17/18 13:20 Urine Blood NEGATIVE (NEGATIVE) 09/17/18 13:20 Urine Nitrate NEGATIVE (NEGATIVE) 09/17/18 13:20 Urine Bilirubin NEGATIVE (NEGATIVE) 09/17/18 13:20 Urine Urobilinogen 0.2 E.U./dL (0.2 - 1.0) 09/17/18 13:20 Ur Leukocyte Esterase NEGATIVE (NEGATIVE) 09/17/18 13:20 Urine RBC NONE SEEN /hpf (0-5) 09/17/18 13:20 Urine WBC 0-2 /hpf (0-5) 09/17/18 13:20 Ur Epithelial Cells NONE SEEN /lpf (FEW) 09/17/18 13:20 Urine Bacteria NONE SEEN /hpf (NONE SEEN) 09/17/18 13:20 Salicylates < 25.0 mg/L (30.0-100.0) L 09/17/18 13:00 Urine Opiates Screen NEGATIVE (NEGATIVE) 09/17/18 13:20 Urine Methadone Screen NEGATIVE (NEGATIVE) 09/17/18 13:20 Acetaminophen < 10.0 ug/mL (10.0-30.0) L 09/17/18 13:00 Ur Barbiturates Screen NEGATIVE (NEGATIVE) 09/17/18 13:20 Ur Tricyclics Screen NEGATIVE (NEGATIVE) 09/17/18 13:20 Ur Phencyclidine Scrn NEGATIVE (NEGATIVE) 09/17/18 13:20 Amphetamines Screen NEGATIVE (NEGATIVE) 09/17/18 13:20 U Methamphetamines Scrn NEGATIVE (NEGATIVE) 09/17/18 13:20 U Benzodiazepines Scrn NEGATIVE (NEGATIVE) 09/17/18 13:20 U Cocaine Metab Screen NEGATIVE (NEGATIVE) 09/17/18 13:20 U Cannabinoids Screen NEGATIVE (NEGATIVE) 09/17/18 13:20 Ethyl Alcohol < 10 mg/dL (0-10) 09/17/18 13:00 RPR NONREACTIVE (NONREACTIVE) 09/17/18 13:00 - Physical Exam Vitals and I&O: Vital Signs Temp 97.9 F 09/24/18 06:00 Pulse 71 09/24/18 09:00 Resp 18 09/24/18 06:00 BP 155/77 09/24/18 09:00 Pulse Ox 98 09/24/18 06:00 Intake & Output 09/23/18 09/24/18 09/24/18 18:59 06:59 18:59 Intake Total 240 Balance 240 Intake: Oral 240 Other: # Voids 2 1 # Bowel Movements 0 Active Medications: Current Medications Acetaminophen (Tylenol) 650 mg PO Q4H PRN PRN Reason: Mild Pain / Temp above 100 Stop: 11/16/18 14:58 Acetaminophen (Tylenol Extra Strength) 1,000 mg PO Q8H PRN PRN Reason: MOD/SEVERE PAIN Stop: 11/16/18 19:17 Al Hydrox/Mg Hydrox/Simethicone (Maalox) 30 ml PO Q4H PRN PRN Reason: GI DISTRESS Stop: 11/16/18 15:59 Bisacodyl (Dulcolax 10 Mg Supp) 10 mg RC DAILY PRN PRN Reason: IF MOM INEFFECTIVE Stop: 11/16/18 19:17 Brimonidine Tartrate (Alphagan 0.2% Ophth Soln) 1 drop EACH EYE BID DOMINIQUE Stop: 11/17/18 08:59 Last Admin: 09/24/18 08:52 Dose: 1 drop Diphenhydramine HCl (Benadryl) 50 mg PO TID PRN PRN Reason: Itching Stop: 11/16/18 23:27 Last Admin: 09/21/18 02:50 Dose: 50 mg Docusate Sodium (Colace) 200 mg PO HS DOMINIQUE Stop: 11/16/18 21:26 Last Admin: 09/23/18 21:20 Dose: 200 mg Donepezil HCl (Aricept) 5 mg PO HS DOIMNIQUE Stop: 11/17/18 20:59 Last Admin: 09/23/18 21:20 Dose: 5 mg Latanoprost (Xalatan 0.005% Ophth Soln) 1 drop EACH EYE HS DOMINIQUE Stop: 11/16/18 20:59 Last Admin: 09/23/18 21:20 Dose: 1 drop Levothyroxine Sodium (Synthroid) 0.075 mg PO DAILY DOMINIQUE Stop: 11/17/18 08:59 Last Admin: 09/24/18 08:51 Dose: 0.075 mg Lisinopril (Zestril) 10 mg PO DAILY DOMINIQUE Stop: 11/17/18 08:59 Last Admin: 09/24/18 09:00 Dose: 10 mg Lorazepam (Ativan) 0.5 mg PO Q4H PRN; Protocol PRN Reason: Agitation Stop: 11/16/18 15:59 Last Admin: 09/23/18 19:31 Dose: 0.5 mg Magnesium Hydroxide (Milk Of Magnesia) 30 ml PO HS PRN PRN Reason: Constipation Stop: 11/16/18 19:17 Multivitamins/Vitamin C (Theragran) 1 tab PO DAILY DOMINIQUE Stop: 11/17/18 08:59 Last Admin: 09/24/18 08:51 Dose: 1 tab Naproxen (Naprosyn) 500 mg PO BID PRN PRN Reason: PAIN Stop: 11/16/18 19:17 Nystatin (Nystop) 100 units TP BID [facility] Stop: 11/17/18 16:59 Last Admin: 09/23/18 17:45 Dose: Not Given Pantoprazole Sodium (Protonix) 40 mg PO DAILY DOMINIQUE Stop: 11/17/18 08:59 Last Admin: 09/24/18 08:51 Dose: 40 mg Quetiapine Fumarate (Seroquel) 25 mg PO BID [facility]; Protocol Stop: 11/22/18 16:59 Last Admin: 09/24/18 08:51 Dose: 25 mg Senna (Senna) 8.6 mg PO HS DOMINIQUE Stop: 11/16/18 20:59 Last Admin: 09/23/18 21:20 Dose: 8.6 mg Sodium Phosphate (Fleet Enema) 135 ml RC Q48H PRN PRN Reason: IF DULCOLAX INEFFECTIVE Stop: 11/16/18 19:17 Zolpidem Tartrate (Ambien) 5 mg PO HS PRN PRN Reason: Insomnia Stop: 11/16/18 20:59 Last Admin: 09/23/18 19:31 Dose: 5 mg General: demented HEENT: NC/AT Neck: Supple Lungs: CTAB Cardiovascular: RRR, Normal S1, Normal S2 Abdomen: soft, non-tender Extremities: clear, edema Neurological: no change Internal Medicine Assmt/Plan - Assessment Assessment: psychosis bipolar disorder h/o htn h/o seizures h/o thyroid disorder - Plan Plan: seizure precautions cpm - Nutritional Asmnt/Malnutr-PDOC - Dietary Evaluation Malnutrition Findings (Please click <Entered> for more info): Nutritional Asmnt/Malnutrition Start: 09/19/18 12: 47 Text: Status: Complete Freq: Protocol: Document 09/19/18 12:47 [email or web address] (Rec: 09/19/18 13:05 [email or web address]) Nutritional Asmnt/Malnutrition Patient General Information Nutritional Screening Moderate Risk Consult Diagnosis psychosis Pertinent Medical Hx/Surgical Hx HTN, seizures, thyroid disorder, schizophrenia, bipolar Subjective Information Consult received for wounds. Pt seen sleeping in bed at time of visit. PO intake is 25 -75% per EMR Current Diet Order/ Nutrition Support regular Pertinent Medications colace, synthroid, theragran, protonix, seroquel, ambien Pertinent Labs 09/17 glucose 100, Na 135, potassium 3.2, LDL 56, HDL 95 Nutritional Hx/Data Height 5 ft 2 in Height (Calculated Centimeters) 157.5 Current Weight (lbs) 94 lb Weight (Calculated Kilograms) 42.6 Weight (Calculated Grams) 64904.7 [place] Body Weight 110 Body Mass Index (BMI) 17.2 Weight Status Underweight GI Symptoms GI Symptoms None Last BM not indicated Difficult in: None Food Allergies No Skin Integrity/Comment: right lower extremity wounds jim 16 Current %PO Fair (50-74%) Estimated Nutritional Goals BEE in Kcals: Using Current wt Calories/Kcals/Kg 27-32 Kcals Calculated 7458-8615 Protein: Using Current wt Protein g/k-1.2 Protein Calculated 42-51 Fluid: ml 5184-5277 Nutritional Problem 1. Problem Problem underweight Etiology possible inadequate calorie- protein intake Signs/Symptoms: BMI 17.2 and PO intake 25-75% per EMR Malnutrition Alert Is there a minimum of two criteria No selected? Query Text:Check all the applicable criteria. A minimum of two criteria are recommended for diagnosis of either severe or non-severe malnutrition. Malnutrition Related to Morbid Obesity Malnutrition related to morbid obesity No Intervention/Recommendation Comments 1. Continue with regular diet as ordered. 2. Consider adding supplements for extra calories and wound healing. 3. Monitor PO intake, wt, labs and skin integrity 4. F/U as moderate risk in 3-5 days, 09/22-09/24 Expected Outcomes/Goals Expected Outcomes/Goals Goal: PO intake to meet at least 75% of nutritional needs , improved labs and skin integrity. Reviewed by Sharyn Krause RD
--- NOTE | 2018-09-24 21:32 | Progress Notes ---
DATE: 09/24/2018 Case was discussed with staff of the patient, reviewed records. The patient has been taking her medication, which she was not doing before. She is sleeping better, eating better, continues to be paranoid and delusional. Continues to have poor insight, unable to make safe plan for self-care. I increased her Seroquel dose yesterday to 25 mg twice a day. No side effects, no sedation, no nausea, no extrapyramidal symptoms. We will continue to work with the patient in group therapy, milieu therapy and adjust the medications as needed. JOB# [id number]
[2018-09-25] MEDS: Levothyroxine 0.075 Mg Tab PO SCH (09:05)
[2018-09-25] MEDS: Multivitamin Tab PO SCH (09:05)
[2018-09-25] MEDS: Pantoprazole 40 mg EC Tab PO SCH (09:05)
[2018-09-25] MEDS: NYSTATIN 100000 UNITS/GM POWD TP SCH ×2 (09:47→17:17)
--- NOTE | 2018-09-25 13:23 | Progress Notes ---
DATE: 09/25/2018 Case was discussed with staff of the patient, reviewed records. The patient continues to be somewhat paranoid. Continues to isolate herself. Continues to be unable to make safe plan for self-care. She is also hard of hearing, but she is able to tell me the date. She is forgetful. She is compliant with the medication with no side effects, no sedation, no nausea, no extrapyramidal symptoms. I did increase her Seroquel to 25 mg twice a day. No side effects, no sedation, no nausea, no extrapyramidal symptoms. We will continue the patient in group therapy, milieu therapy, adjust medication as needed. JOB# [id number]
--- NOTE | 2018-09-25 16:36 | Internal Medicine Prog Note ---
Internal Medicine Subjective - Subjective Patient seen and examined:: chart reviewed Patient is:: awake, other ( paranoid , insolative ) Per staff patient has:: no adverse event Internal Medicine Objective - Results Result Diagrams: 09/17/18 13:00 09/17/18 13:00 Recent Labs: Laboratory Last Values WBC 10.3 Th/cmm (4.8-10.8) 09/17/18 13:00 RBC 4.29 Mil/cmm (3.80-5.20) 09/17/18 13:00 Hgb 13.8 gm/dL (12-16) 09/17/18 13:00 Hct 39.9 % (41.0-60) L 09/17/18 13:00 MCV 93.1 fl (81-100) 09/17/18 13:00 MCH 32.3 pg (27.0-31.0) H 09/17/18 13:00 MCHC Differential 34.7 pg (28.0-36.0) 09/17/18 13:00 RDW 11.9 % (11.5-20.0) 09/17/18 13:00 Plt Count 342 Th/cmm (150-400) 09/17/18 13:00 MPV 7.4 fl 09/17/18 13:00 Neutrophils % 70.5 % (40.0-80.0) 09/17/18 13:00 Lymphocytes % 15.1 % (20.0-50.0) L 09/17/18 13:00 Monocytes % 12.7 % (2.0-10.0) H 09/17/18 13:00 Eosinophils % 1.1 % (0.0-5.0) 09/17/18 13:00 Basophils % 0.6 % (0.0-2.0) 09/17/18 13:00 Sodium 135 mEq/L (136-145) L 09/17/18 13:00 Potassium 3.2 mEq/L (3.5-5.1) L 09/17/18 13:00 Chloride 98 mEq/L (98-107) 09/17/18 13:00 Carbon Dioxide 27.6 mEq/L (21.0-31.0) 09/17/18 13:00 Anion Gap 12.6 (7.0-16.0) 09/17/18 13:00 BUN 7 mg/dL (7-25) 09/17/18 13:00 Creatinine 0.6 mg/dL (0.6-1.2) 09/17/18 13:00 Est GFR ( Amer) TNP 09/17/18 13:00 Est GFR (Non-Af Amer) TNP 09/17/18 13:00 BUN/Creatinine Ratio 11.7 09/17/18 13:00 Glucose 100 mg/dL (70-105) 09/17/18 13:00 Calcium 9.4 mg/dL (8.6-10.3) 09/17/18 13:00 Total Bilirubin 0.4 mg/dL (0.3-1.0) 09/17/18 13:00 AST 16 U/L (13-39) 09/17/18 13:00 ALT 15 U/L (7-52) 09/17/18 13:00 Alkaline Phosphatase 58 U/L (34-104) 09/17/18 13:00 Troponin I 0.01 ng/mL (0.01-0.05) 09/17/18 13:00 Total Protein 6.8 gm/dL (6.0-8.3) 09/17/18 13:00 Albumin 3.7 gm/dL (3.7-5.3) 09/17/18 13:00 Globulin 3.1 gm/dL 09/17/18 13:00 Albumin/Globulin Ratio 1.2 (1.0-1.8) 09/17/18 13:00 Triglycerides 52 mg/dL (<150) 09/17/18 13:00 Cholesterol 186 mg/dL (<200) 09/17/18 13:00 LDL Cholesterol Direct 56 mg/dL (75-193) L 09/17/18 13:00 HDL Cholesterol 95 mg/dL (23-92) H 09/17/18 13:00 TSH 2.25 uIU/ml (0.34-5.60) 09/17/18 13:00 Urine Source CLEAN C 09/17/18 13:20 Urine Color YELLOW 09/17/18 13:20 Urine Clarity CLEAR (CLEAR) 09/17/18 13:20 Urine pH 7.0 (4.6 - 8.0) 09/17/18 13:20 Ur Specific [place] 1.020 (1.005-1.030) 09/17/18 13:20 Urine Protein 30 mg/dL (NEGATIVE) H 09/17/18 13:20 Urine Glucose (UA) >=1000 mg/dL (NEGATIVE) H 09/17/18 13:20 Urine Ketones NEGATIVE mg/dL (NEGATIVE) 09/17/18 13:20 Urine Blood NEGATIVE (NEGATIVE) 09/17/18 13:20 Urine Nitrate NEGATIVE (NEGATIVE) 09/17/18 13:20 Urine Bilirubin NEGATIVE (NEGATIVE) 09/17/18 13:20 Urine Urobilinogen 0.2 E.U./dL (0.2 - 1.0) 09/17/18 13:20 Ur Leukocyte Esterase NEGATIVE (NEGATIVE) 09/17/18 13:20 Urine RBC NONE SEEN /hpf (0-5) 09/17/18 13:20 Urine WBC 0-2 /hpf (0-5) 09/17/18 13:20 Ur Epithelial Cells NONE SEEN /lpf (FEW) 09/17/18 13:20 Urine Bacteria NONE SEEN /hpf (NONE SEEN) 09/17/18 13:20 Salicylates < 25.0 mg/L (30.0-100.0) L 09/17/18 13:00 Urine Opiates Screen NEGATIVE (NEGATIVE) 09/17/18 13:20 Urine Methadone Screen NEGATIVE (NEGATIVE) 09/17/18 13:20 Acetaminophen < 10.0 ug/mL (10.0-30.0) L 09/17/18 13:00 Ur Barbiturates Screen NEGATIVE (NEGATIVE) 09/17/18 13:20 Ur Tricyclics Screen NEGATIVE (NEGATIVE) 09/17/18 13:20 Ur Phencyclidine Scrn NEGATIVE (NEGATIVE) 09/17/18 13:20 Amphetamines Screen NEGATIVE (NEGATIVE) 09/17/18 13:20 U Methamphetamines Scrn NEGATIVE (NEGATIVE) 09/17/18 13:20 U Benzodiazepines Scrn NEGATIVE (NEGATIVE) 09/17/18 13:20 U Cocaine Metab Screen NEGATIVE (NEGATIVE) 09/17/18 13:20 U Cannabinoids Screen NEGATIVE (NEGATIVE) 09/17/18 13:20 Ethyl Alcohol < 10 mg/dL (0-10) 09/17/18 13:00 RPR NONREACTIVE (NONREACTIVE) 09/17/18 13:00 - Physical Exam Vitals and I&O: Vital Signs Temp 97.6 F 09/25/18 06:05 Pulse 77 09/25/18 09:06 Resp 20 09/25/18 06:05 BP 147/83 09/25/18 09:06 Pulse Ox 100 09/25/18 06:05 Intake & Output 09/24/18 09/25/18 09/25/18 18:59 06:59 18:59 Intake Total 240 Balance 240 Intake: Oral 240 Other: # Voids 1 # Bowel Movements 1 Active Medications: Current Medications Acetaminophen (Tylenol) 650 mg PO Q4H PRN PRN Reason: Mild Pain / Temp above 100 Stop: 11/16/18 14:58 Acetaminophen (Tylenol Extra Strength) 1,000 mg PO Q8H PRN PRN Reason: MOD/SEVERE PAIN Stop: 11/16/18 19:17 Al Hydrox/Mg Hydrox/Simethicone (Maalox) 30 ml PO Q4H PRN PRN Reason: GI DISTRESS Stop: 11/16/18 15:59 Bisacodyl (Dulcolax 10 Mg Supp) 10 mg RC DAILY PRN PRN Reason: IF MOM INEFFECTIVE Stop: 11/16/18 19:17 Brimonidine Tartrate (Alphagan 0.2% Ophth Soln) 1 drop EACH EYE BID DOMINIQUE Stop: 11/17/18 08:59 Last Admin: 09/25/18 09:06 Dose: 1 drop Diphenhydramine HCl (Benadryl) 50 mg PO TID PRN PRN Reason: Itching Stop: 11/16/18 23:27 Last Admin: 09/21/18 02:50 Dose: 50 mg Docusate Sodium (Colace) 200 mg PO HS DOMINIQUE Stop: 11/16/18 21:26 Last Admin: 09/24/18 20:49 Dose: 200 mg Donepezil HCl (Aricept) 5 mg PO HS DOMINIQUE Stop: 11/17/18 20:59 Last Admin: 09/24/18 20:49 Dose: 5 mg Latanoprost (Xalatan 0.005% Ophth Soln) 1 drop EACH EYE HS DOMINIQUE Stop: 11/16/18 20:59 Last Admin: 09/24/18 20:48 Dose: 1 drop Levothyroxine Sodium (Synthroid) 0.075 mg PO DAILY DOMINIQUE Stop: 11/17/18 08:59 Last Admin: 09/25/18 09:05 Dose: 0.075 mg Lisinopril (Zestril) 10 mg PO DAILY DOM[facility] Stop: 11/17/18 08:59 Last Admin: 09/25/18 09:06 Dose: 10 mg Lorazepam (Ativan) 0.5 mg PO Q4H PRN; Protocol PRN Reason: Agitation Stop: 11/16/18 15:59 Last Admin: 09/23/18 19:31 Dose: 0.5 mg Magnesium Hydroxide (Milk Of Magnesia) 30 ml PO HS PRN PRN Reason: Constipation Stop: 11/16/18 19:17 Multivitamins/Vitamin C (Theragran) 1 tab PO DAILY DOMINIQUE Stop: 11/17/18 08:59 Last Admin: 09/25/18 09:05 Dose: 1 tab Naproxen (Naprosyn) 500 mg PO BID PRN PRN Reason: PAIN Stop: 11/16/18 19:17 Nystatin (Nystop) 100 units TP BID [facility] Stop: 11/17/18 16:59 Last Admin: 09/25/18 09:47 Dose: Not Given Pantoprazole Sodium (Protonix) 40 mg PO DAILY DOMINIQUE Stop: 11/17/18 08:59 Last Admin: 09/25/18 09:05 Dose: 40 mg Quetiapine Fumarate (Seroquel) 25 mg PO BID [facility]; Protocol Stop: 11/22/18 16:59 Last Admin: 09/25/18 09:05 Dose: 25 mg Senna (Senna) 8.6 mg PO HS DOMINIQUE Stop: 11/16/18 20:59 Last Admin: 09/24/18 20:49 Dose: 8.6 mg Sodium Phosphate (Fleet Enema) 135 ml RC Q48H PRN PRN Reason: IF DULCOLAX INEFFECTIVE Stop: 11/16/18 19:17 Zolpidem Tartrate (Ambien) 5 mg PO HS PRN PRN Reason: Insomnia Stop: 11/16/18 20:59 Last Admin: 09/24/18 20:49 Dose: 5 mg General: demented HEENT: NC/AT Neck: Supple Lungs: CTAB Cardiovascular: RRR, Normal S1, Normal S2 Abdomen: soft, non-tender Extremities: clear, edema Neurological: no change Internal Medicine Assmt/Plan - Assessment Assessment: psychosis bipolar disorder h/o htn h/o seizures h/o thyroid disorder - Plan Plan: as per psych will monitor Nutritional Asmnt/Malnutr-PDOC - Dietary Evaluation Malnutrition Findings (Please click <Entered> for more info): Nutritional Asmnt/Malnutrition Start: 09/19/18 12: 47 Text: Status: Complete Freq: Protocol: Document 09/19/18 12:47 [email or web address] (Rec: 09/19/18 13:05 [email or web address]) Nutritional Asmnt/Malnutrition Patient General Information Nutritional Screening Moderate Risk Consult Diagnosis psychosis Pertinent Medical Hx/Surgical Hx HTN, seizures, thyroid disorder, schizophrenia, bipolar Subjective Information Consult received for wounds. Pt seen sleeping in bed at time of visit. PO intake is 25 -75% per EMR Current Diet Order/ Nutrition Support regular Pertinent Medications colace, synthroid, theragran, protonix, seroquel, ambien Pertinent Labs 09/17 glucose 100, Na 135, potassium 3.2, LDL 56, HDL 95 Nutritional Hx/Data Height 1.57 m Height (Calculated Centimeters) 157.5 Current Weight (lbs) 42.638 kg Weight (Calculated Kilograms) 42.6 Weight (Calculated Grams) 53448.7 [place] Body Weight 110 Body Mass Index (BMI) 17.2 Weight Status Underweight GI Symptoms GI Symptoms None Last BM not indicated Difficult in: None Food Allergies No Skin Integrity/Comment: right lower extremity wounds jim 16 Current %PO Fair (50-74%) Estimated Nutritional Goals BEE in Kcals: Using Current wt Calories/Kcals/Kg 27-32 Kcals Calculated 2161-8650 Protein: Using Current wt Protein g/k-1.2 Protein Calculated 42-51 Fluid: ml 6932-9573 Nutritional Problem 1. Problem Problem underweight Etiology possible inadequate calorie- protein intake Signs/Symptoms: BMI 17.2 and PO intake 25-75% per EMR Malnutrition Alert Is there a minimum of two criteria No selected? Query Text:Check all the applicable criteria. A minimum of two criteria are recommended for diagnosis of either severe or non-severe malnutrition. Malnutrition Related to Morbid Obesity Malnutrition related to morbid obesity No Intervention/Recommendation Comments 1. Continue with regular diet as ordered. 2. Consider adding supplements for extra calories and wound healing. 3. Monitor PO intake, wt, labs and skin integrity 4. F/U as moderate risk in 3-5 days, 09/22-09/24 Expected Outcomes/Goals Expected Outcomes/Goals Goal: PO intake to meet at least 75% of nutritional needs , improved labs and skin integrity. Reviewed by Sharyn Krause RD
[2018-09-26] MEDS: Multivitamin Tab PO SCH (09:07)
[2018-09-26] MEDS: Levothyroxine 0.075 Mg Tab PO SCH (09:09)
--- NOTE | 2018-09-26 22:54 | Progress Notes ---
DATE: 09/26/2018 SUBJECTIVE: Case was discussed with staff of the patient, reviewed records. The patient continues to be somewhat confused at times, though she is able to tell me the date. She is paranoid. She is unpredictable, impulsive, and needing redirection. She has been compliant with the medication with no side effects. I did increase her Seroquel dose yesterday to 25 mg twice a day with no side effects, no sedation, and no nausea. We will continue to work with the patient in group therapy, milieu therapy, and adjust the medications as needed. JOB# [id number]
[2018-09-27] MEDS: Pantoprazole 40 mg EC Tab PO SCH (09:00)
[2018-09-27] MEDS: Multivitamin Tab PO SCH (09:00)
--- NOTE | 2018-09-27 14:58 | Internal Medicine Prog Note ---
Internal Medicine Subjective - Subjective Patient seen and examined:: chart reviewed Patient is:: awake, other ( paranoid , insolative ) Per staff patient has:: no adverse event Internal Medicine Objective - Results Result Diagrams: 09/17/18 13:00 09/17/18 13:00 Recent Labs: Laboratory Last Values WBC 10.3 Th/cmm (4.8-10.8) 09/17/18 13:00 RBC 4.29 Mil/cmm (3.80-5.20) 09/17/18 13:00 Hgb 13.8 gm/dL (12-16) 09/17/18 13:00 Hct 39.9 % (41.0-60) L 09/17/18 13:00 MCV 93.1 fl (81-100) 09/17/18 13:00 MCH 32.3 pg (27.0-31.0) H 09/17/18 13:00 MCHC Differential 34.7 pg (28.0-36.0) 09/17/18 13:00 RDW 11.9 % (11.5-20.0) 09/17/18 13:00 Plt Count 342 Th/cmm (150-400) 09/17/18 13:00 MPV 7.4 fl 09/17/18 13:00 Neutrophils % 70.5 % (40.0-80.0) 09/17/18 13:00 Lymphocytes % 15.1 % (20.0-50.0) L 09/17/18 13:00 Monocytes % 12.7 % (2.0-10.0) H 09/17/18 13:00 Eosinophils % 1.1 % (0.0-5.0) 09/17/18 13:00 Basophils % 0.6 % (0.0-2.0) 09/17/18 13:00 Sodium 135 mEq/L (136-145) L 09/17/18 13:00 Potassium 3.2 mEq/L (3.5-5.1) L 09/17/18 13:00 Chloride 98 mEq/L (98-107) 09/17/18 13:00 Carbon Dioxide 27.6 mEq/L (21.0-31.0) 09/17/18 13:00 Anion Gap 12.6 (7.0-16.0) 09/17/18 13:00 BUN 7 mg/dL (7-25) 09/17/18 13:00 Creatinine 0.6 mg/dL (0.6-1.2) 09/17/18 13:00 Est GFR ( Amer) TNP 09/17/18 13:00 Est GFR (Non-Af Amer) TNP 09/17/18 13:00 BUN/Creatinine Ratio 11.7 09/17/18 13:00 Glucose 100 mg/dL (70-105) 09/17/18 13:00 Calcium 9.4 mg/dL (8.6-10.3) 09/17/18 13:00 Total Bilirubin 0.4 mg/dL (0.3-1.0) 09/17/18 13:00 AST 16 U/L (13-39) 09/17/18 13:00 ALT 15 U/L (7-52) 09/17/18 13:00 Alkaline Phosphatase 58 U/L (34-104) 09/17/18 13:00 Troponin I 0.01 ng/mL (0.01-0.05) 09/17/18 13:00 Total Protein 6.8 gm/dL (6.0-8.3) 09/17/18 13:00 Albumin 3.7 gm/dL (3.7-5.3) 09/17/18 13:00 Globulin 3.1 gm/dL 09/17/18 13:00 Albumin/Globulin Ratio 1.2 (1.0-1.8) 09/17/18 13:00 Triglycerides 52 mg/dL (<150) 09/17/18 13:00 Cholesterol 186 mg/dL (<200) 09/17/18 13:00 LDL Cholesterol Direct 56 mg/dL (75-193) L 09/17/18 13:00 HDL Cholesterol 95 mg/dL (23-92) H 09/17/18 13:00 TSH 2.25 uIU/ml (0.34-5.60) 09/17/18 13:00 Urine Source CLEAN C 09/17/18 13:20 Urine Color YELLOW 09/17/18 13:20 Urine Clarity CLEAR (CLEAR) 09/17/18 13:20 Urine pH 7.0 (4.6 - 8.0) 09/17/18 13:20 Ur Specific [place] 1.020 (1.005-1.030) 09/17/18 13:20 Urine Protein 30 mg/dL (NEGATIVE) H 09/17/18 13:20 Urine Glucose (UA) >=1000 mg/dL (NEGATIVE) H 09/17/18 13:20 Urine Ketones NEGATIVE mg/dL (NEGATIVE) 09/17/18 13:20 Urine Blood NEGATIVE (NEGATIVE) 09/17/18 13:20 Urine Nitrate NEGATIVE (NEGATIVE) 09/17/18 13:20 Urine Bilirubin NEGATIVE (NEGATIVE) 09/17/18 13:20 Urine Urobilinogen 0.2 E.U./dL (0.2 - 1.0) 09/17/18 13:20 Ur Leukocyte Esterase NEGATIVE (NEGATIVE) 09/17/18 13:20 Urine RBC NONE SEEN /hpf (0-5) 09/17/18 13:20 Urine WBC 0-2 /hpf (0-5) 09/17/18 13:20 Ur Epithelial Cells NONE SEEN /lpf (FEW) 09/17/18 13:20 Urine Bacteria NONE SEEN /hpf (NONE SEEN) 09/17/18 13:20 Salicylates < 25.0 mg/L (30.0-100.0) L 09/17/18 13:00 Urine Opiates Screen NEGATIVE (NEGATIVE) 09/17/18 13:20 Urine Methadone Screen NEGATIVE (NEGATIVE) 09/17/18 13:20 Acetaminophen < 10.0 ug/mL (10.0-30.0) L 09/17/18 13:00 Ur Barbiturates Screen NEGATIVE (NEGATIVE) 09/17/18 13:20 Ur Tricyclics Screen NEGATIVE (NEGATIVE) 09/17/18 13:20 Ur Phencyclidine Scrn NEGATIVE (NEGATIVE) 09/17/18 13:20 Amphetamines Screen NEGATIVE (NEGATIVE) 09/17/18 13:20 U Methamphetamines Scrn NEGATIVE (NEGATIVE) 09/17/18 13:20 U Benzodiazepines Scrn NEGATIVE (NEGATIVE) 09/17/18 13:20 U Cocaine Metab Screen NEGATIVE (NEGATIVE) 09/17/18 13:20 U Cannabinoids Screen NEGATIVE (NEGATIVE) 09/17/18 13:20 Ethyl Alcohol < 10 mg/dL (0-10) 09/17/18 13:00 RPR NONREACTIVE (NONREACTIVE) 09/17/18 13:00 - Physical Exam Vitals and I&O: Vital Signs Temp 97.9 F 09/27/18 06:31 Pulse 92 09/27/18 09:01 Resp 19 09/27/18 06:31 BP 151/106 09/27/18 09:01 Pulse Ox 97 09/27/18 06:31 Intake & Output 09/26/18 09/27/18 09/27/18 18:59 06:59 18:59 Intake Total 1400 720 Balance 1400 720 Intake: Oral 1400 720 Other: # Voids 4 1 # Bowel Movements 0 Active Medications: Current Medications Acetaminophen (Tylenol) 650 mg PO Q4H PRN PRN Reason: Mild Pain / Temp above 100 Stop: 11/16/18 14:58 Acetaminophen (Tylenol Extra Strength) 1,000 mg PO Q8H PRN PRN Reason: MOD/SEVERE PAIN Stop: 11/16/18 19:17 Al Hydrox/Mg Hydrox/Simethicone (Maalox) 30 ml PO Q4H PRN PRN Reason: GI DISTRESS Stop: 11/16/18 15:59 Bisacodyl (Dulcolax 10 Mg Supp) 10 mg RC DAILY PRN PRN Reason: IF MOM INEFFECTIVE Stop: 11/16/18 19:17 Brimonidine Tartrate (Alphagan 0.2% Ophth Soln) 1 drop EACH EYE BID [facility]INIQUE Stop: 11/17/18 08:59 Last Admin: 09/27/18 09:00 Dose: 1 drop Diphenhydramine HCl (Benadryl) 50 mg PO TID PRN PRN Reason: Itching Stop: 11/16/18 23:27 Last Admin: 09/21/18 02:50 Dose: 50 mg Docusate Sodium (Colace) 200 mg PO HS [facility]INIQUE Stop: 11/16/18 21:26 Last Admin: 09/26/18 20:36 Dose: 200 mg Donepezil HCl (Aricept) 5 mg PO HS [facility] Stop: 11/17/18 20:59 Last Admin: 09/26/18 20:36 Dose: 5 mg Latanoprost (Xalatan 0.005% Ophth Soln) 1 drop EACH EYE HS [facility]INIQUE Stop: 11/16/18 20:59 Last Admin: 09/26/18 20:35 Dose: 1 drop Levothyroxine Sodium (Synthroid) 0.075 mg PO DAILY [facility] Stop: 11/17/18 08:59 Last Admin: 09/26/18 09:09 Dose: 0.075 mg Lisinopril (Zestril) 10 mg PO DAILY [facility] Stop: 11/17/18 08:59 Last Admin: 09/27/18 09:01 Dose: 10 mg Lorazepam (Ativan) 0.5 mg PO Q4H PRN; Protocol PRN Reason: Agitation Stop: 11/16/18 15:59 Last Admin: 09/23/18 19:31 Dose: 0.5 mg Magnesium Hydroxide (Milk Of Magnesia) 30 ml PO HS PRN PRN Reason: Constipation Stop: 11/16/18 19:17 Multivitamins/Vitamin C (Theragran) 1 tab PO DAILY [facility]INIQUE Stop: 11/17/18 08:59 Last Admin: 09/27/18 09:00 Dose: 1 tab Naproxen (Naprosyn) 500 mg PO BID PRN PRN Reason: PAIN Stop: 11/16/18 19:17 Pantoprazole Sodium (Protonix) 40 mg PO DAILY [facility] Stop: 11/17/18 08:59 Last Admin: 09/27/18 09:00 Dose: 40 mg Quetiapine Fumarate (Seroquel) 25 mg PO BID [facility]; Protocol Stop: 11/22/18 16:59 Last Admin: 09/27/18 09:01 Dose: 25 mg Senna (Senna) 8.6 mg PO HS [facility] Stop: 11/16/18 20:59 Last Admin: 09/26/18 20:36 Dose: 8.6 mg Sodium Phosphate (Fleet Enema) 135 ml RC Q48H PRN PRN Reason: IF DULCOLAX INEFFECTIVE Stop: 11/16/18 19:17 Zolpidem Tartrate (Ambien) 5 mg PO HS PRN PRN Reason: Insomnia Stop: 11/16/18 20:59 Last Admin: 09/26/18 20:36 Dose: 5 mg General: demented HEENT: NC/AT Neck: Supple Lungs: CTAB Cardiovascular: RRR, Normal S1, Normal S2 Abdomen: soft, non-tender Extremities: clear, edema Neurological: no change Internal Medicine Assmt/Plan - Assessment Assessment: psychosis bipolar disorder h/o htn h/o seizures h/o thyroid disorder - Plan Plan: as per psych will monitor Nutritional Asmnt/Malnutr-PDOC - Dietary Evaluation Malnutrition Findings (Please click <Entered> for more info): Nutritional Asmnt/Malnutrition Start: 09/19/18 12: 47 Text: Status: Complete Freq: Protocol: Document 09/19/18 12:47 [email or web address] (Rec: 09/19/18 13:05 [email or web address]) Nutritional Asmnt/Malnutrition Patient General Information Nutritional Screening Moderate Risk Consult Diagnosis psychosis Pertinent Medical Hx/Surgical Hx HTN, seizures, thyroid disorder, schizophrenia, bipolar Subjective Information Consult received for wounds. Pt seen sleeping in bed at time of visit. PO intake is 25 -75% per EMR Current Diet Order/ Nutrition Support regular Pertinent Medications colace, synthroid, theragran, protonix, seroquel, ambien Pertinent Labs 09/17 glucose 100, Na 135, potassium 3.2, LDL 56, HDL 95 Nutritional Hx/Data Height 1.57 m Height (Calculated Centimeters) 157.5 Current Weight (lbs) 42.638 kg Weight (Calculated Kilograms) 42.6 Weight (Calculated Grams) 13137.7 [place] Body Weight 110 Body Mass Index (BMI) 17.2 Weight Status Underweight GI Symptoms GI Symptoms None Last BM not indicated Difficult in: None Food Allergies No Skin Integrity/Comment: right lower extremity wounds jim 16 Current %PO Fair (50-74%) Estimated Nutritional Goals BEE in Kcals: Using Current wt Calories/Kcals/Kg 27-32 Kcals Calculated 7703-7852 Protein: Using Current wt Protein g/k-1.2 Protein Calculated 42-51 Fluid: ml 1435-6608 Nutritional Problem 1. Problem Problem underweight Etiology possible inadequate calorie- protein intake Signs/Symptoms: BMI 17.2 and PO intake 25-75% per EMR Malnutrition Alert Is there a minimum of two criteria No selected? Query Text:Check all the applicable criteria. A minimum of two criteria are recommended for diagnosis of either severe or non-severe malnutrition. Malnutrition Related to Morbid Obesity Malnutrition related to morbid obesity No Intervention/Recommendation Comments 1. Continue with regular diet as ordered. 2. Consider adding supplements for extra calories and wound healing. 3. Monitor PO intake, wt, labs and skin integrity 4. F/U as moderate risk in 3-5 days, 09/22-09/24 Expected Outcomes/Goals Expected Outcomes/Goals Goal: PO intake to meet at least 75% of nutritional needs , improved labs and skin integrity. Reviewed by Sharyn Krause RD
--- NOTE | 2018-09-27 16:23 | Progress Notes ---
DATE: 09/27/2018 Case was discussed with staff of the patient, reviewed records. The patient continues to be paranoid, internally preoccupied. Continues to have poor insight, unable to make safe plan for self-care, unpredictable, impulsive, needing redirection, though she can tell her age and the date. I did initiate Aricept on her. She has no side effects with the medication, no sedation, no nausea, no extrapyramidal symptoms. We will continue to work with the patient in group therapy, milieu therapy, adjust medication as needed. JOB# [id number]
[2018-09-27] MEDS: Levothyroxine 0.075 Mg Tab PO SCH (17:18)
[2018-09-28] MEDS: Levothyroxine 0.075 Mg Tab PO SCH (09:46)
[2018-09-28] MEDS: Multivitamin Tab PO SCH (09:46)
[2018-09-28] MEDS: Pantoprazole 40 mg EC Tab PO SCH (09:46)
--- NOTE | 2018-09-28 13:31 | General Progress Note ---
Subjective - Review of Systems Service Date: 09/28/18 Objective - Results Result Diagrams: 09/17/18 13:00 09/17/18 13:00 Recent Labs: Laboratory Last Values WBC 10.3 Th/cmm (4.8-10.8) 09/17/18 13:00 RBC 4.29 Mil/cmm (3.80-5.20) 09/17/18 13:00 Hgb 13.8 gm/dL (12-16) 09/17/18 13:00 Hct 39.9 % (41.0-60) L 09/17/18 13:00 MCV 93.1 fl (81-100) 09/17/18 13:00 MCH 32.3 pg (27.0-31.0) H 09/17/18 13:00 MCHC Differential 34.7 pg (28.0-36.0) 09/17/18 13:00 RDW 11.9 % (11.5-20.0) 09/17/18 13:00 Plt Count 342 Th/cmm (150-400) 09/17/18 13:00 MPV 7.4 fl 09/17/18 13:00 Neutrophils % 70.5 % (40.0-80.0) 09/17/18 13:00 Lymphocytes % 15.1 % (20.0-50.0) L 09/17/18 13:00 Monocytes % 12.7 % (2.0-10.0) H 09/17/18 13:00 Eosinophils % 1.1 % (0.0-5.0) 09/17/18 13:00 Basophils % 0.6 % (0.0-2.0) 09/17/18 13:00 Sodium 135 mEq/L (136-145) L 09/17/18 13:00 Potassium 3.2 mEq/L (3.5-5.1) L 09/17/18 13:00 Chloride 98 mEq/L (98-107) 09/17/18 13:00 Carbon Dioxide 27.6 mEq/L (21.0-31.0) 09/17/18 13:00 Anion Gap 12.6 (7.0-16.0) 09/17/18 13:00 BUN 7 mg/dL (7-25) 09/17/18 13:00 Creatinine 0.6 mg/dL (0.6-1.2) 09/17/18 13:00 Est GFR ( Amer) TNP 09/17/18 13:00 Est GFR (Non-Af Amer) TNP 09/17/18 13:00 BUN/Creatinine Ratio 11.7 09/17/18 13:00 Glucose 100 mg/dL (70-105) 09/17/18 13:00 Calcium 9.4 mg/dL (8.6-10.3) 09/17/18 13:00 Total Bilirubin 0.4 mg/dL (0.3-1.0) 09/17/18 13:00 AST 16 U/L (13-39) 09/17/18 13:00 ALT 15 U/L (7-52) 09/17/18 13:00 Alkaline Phosphatase 58 U/L (34-104) 09/17/18 13:00 Troponin I 0.01 ng/mL (0.01-0.05) 09/17/18 13:00 Total Protein 6.8 gm/dL (6.0-8.3) 09/17/18 13:00 Albumin 3.7 gm/dL (3.7-5.3) 09/17/18 13:00 Globulin 3.1 gm/dL 09/17/18 13:00 Albumin/Globulin Ratio 1.2 (1.0-1.8) 09/17/18 13:00 Triglycerides 52 mg/dL (<150) 09/17/18 13:00 Cholesterol 186 mg/dL (<200) 09/17/18 13:00 LDL Cholesterol Direct 56 mg/dL (75-193) L 09/17/18 13:00 HDL Cholesterol 95 mg/dL (23-92) H 09/17/18 13:00 TSH 2.25 uIU/ml (0.34-5.60) 09/17/18 13:00 Urine Source CLEAN C 09/17/18 13:20 Urine Color YELLOW 09/17/18 13:20 Urine Clarity CLEAR (CLEAR) 09/17/18 13:20 Urine pH 7.0 (4.6 - 8.0) 09/17/18 13:20 Ur Specific [place] 1.020 (1.005-1.030) 09/17/18 13:20 Urine Protein 30 mg/dL (NEGATIVE) H 09/17/18 13:20 Urine Glucose (UA) >=1000 mg/dL (NEGATIVE) H 09/17/18 13:20 Urine Ketones NEGATIVE mg/dL (NEGATIVE) 09/17/18 13:20 Urine Blood NEGATIVE (NEGATIVE) 09/17/18 13:20 Urine Nitrate NEGATIVE (NEGATIVE) 09/17/18 13:20 Urine Bilirubin NEGATIVE (NEGATIVE) 09/17/18 13:20 Urine Urobilinogen 0.2 E.U./dL (0.2 - 1.0) 09/17/18 13:20 Ur Leukocyte Esterase NEGATIVE (NEGATIVE) 09/17/18 13:20 Urine RBC NONE SEEN /hpf (0-5) 09/17/18 13:20 Urine WBC 0-2 /hpf (0-5) 09/17/18 13:20 Ur Epithelial Cells NONE SEEN /lpf (FEW) 09/17/18 13:20 Urine Bacteria NONE SEEN /hpf (NONE SEEN) 09/17/18 13:20 Salicylates < 25.0 mg/L (30.0-100.0) L 09/17/18 13:00 Urine Opiates Screen NEGATIVE (NEGATIVE) 09/17/18 13:20 Urine Methadone Screen NEGATIVE (NEGATIVE) 09/17/18 13:20 Acetaminophen < 10.0 ug/mL (10.0-30.0) L 09/17/18 13:00 Ur Barbiturates Screen NEGATIVE (NEGATIVE) 09/17/18 13:20 Ur Tricyclics Screen NEGATIVE (NEGATIVE) 09/17/18 13:20 Ur Phencyclidine Scrn NEGATIVE (NEGATIVE) 09/17/18 13:20 Amphetamines Screen NEGATIVE (NEGATIVE) 09/17/18 13:20 U Methamphetamines Scrn NEGATIVE (NEGATIVE) 09/17/18 13:20 U Benzodiazepines Scrn NEGATIVE (NEGATIVE) 09/17/18 13:20 U Cocaine Metab Screen NEGATIVE (NEGATIVE) 09/17/18 13:20 U Cannabinoids Screen NEGATIVE (NEGATIVE) 09/17/18 13:20 Ethyl Alcohol < 10 mg/dL (0-10) 09/17/18 13:00 RPR NONREACTIVE (NONREACTIVE) 09/17/18 13:00 - Physical Exam Vitals and I&O: Vital Signs Temp 98.0 F 09/28/18 06:51 Pulse 70 01/12/19 09:48 Resp 18 09/28/18 06:51 BP 136/69 09/28/18 09:48 Pulse Ox 99 09/28/18 06:51 Active Medications: Current Medications Acetaminophen (Tylenol) 650 mg PO Q4H PRN PRN Reason: Mild Pain / Temp above 100 Stop: 11/16/18 14:58 Acetaminophen (Tylenol Extra Strength) 1,000 mg PO Q8H PRN PRN Reason: MOD/SEVERE PAIN Stop: 11/16/18 19:17 Al Hydrox/Mg Hydrox/Simethicone (Maalox) 30 ml PO Q4H PRN PRN Reason: GI DISTRESS Stop: 11/16/18 15:59 Bisacodyl (Dulcolax 10 Mg Supp) 10 mg RC DAILY PRN PRN Reason: IF MOM INEFFECTIVE Stop: 11/16/18 19:17 Brimonidine Tartrate (Alphagan 0.2% Ophth Soln) 1 drop EACH EYE BID DOMINIQUE Stop: 11/17/18 08:59 Last Admin: 09/28/18 09:46 Dose: 1 drop Diphenhydramine HCl (Benadryl) 50 mg PO TID PRN PRN Reason: Itching Stop: 11/16/18 23:27 Last Admin: 09/21/18 02:50 Dose: 50 mg Docusate Sodium (Colace) 200 mg PO HS [facility] Stop: 11/16/18 21:26 Last Admin: 09/27/18 21:05 Dose: Not Given Donepezil HCl (Aricept) 5 mg PO HS [facility] Stop: 11/17/18 20:59 Last Admin: 09/27/18 21:05 Dose: Not Given Latanoprost (Xalatan 0.005% Ophth Soln) 1 drop EACH EYE HS DOMINIQUE Stop: 11/16/18 20:59 Last Admin: 09/27/18 21:05 Dose: Not Given Levothyroxine Sodium (Synthroid) 0.075 mg PO DAILY [facility] Stop: 11/17/18 08:59 Last Admin: 09/28/18 09:46 Dose: 0.075 mg Lisinopril (Zestril) 10 mg PO DAILY [facility] Stop: 11/17/18 08:59 Last Admin: 09/28/18 09:48 Dose: 10 mg Lorazepam (Ativan) 0.5 mg PO Q4H PRN; Protocol PRN Reason: Agitation Stop: 11/16/18 15:59 Last Admin: 09/23/18 19:31 Dose: 0.5 mg Magnesium Hydroxide (Milk Of Magnesia) 30 ml PO HS PRN PRN Reason: Constipation Stop: 11/16/18 19:17 Multivitamins/Vitamin C (Theragran) 1 tab PO DAILY [facility]INIQUE Stop: 11/17/18 08:59 Last Admin: 09/28/18 09:46 Dose: 1 tab Naproxen (Naprosyn) 500 mg PO BID PRN PRN Reason: PAIN Stop: 11/16/18 19:17 Pantoprazole Sodium (Protonix) 40 mg PO DAILY [facility]INIQUE Stop: 11/17/18 08:59 Last Admin: 09/28/18 09:46 Dose: 40 mg Quetiapine Fumarate (Seroquel) 25 mg PO BID DOMINIQUE; Protocol Stop: 11/22/18 16:59 Last Admin: 09/28/18 09:47 Dose: 25 mg Senna (Senna) 8.6 mg PO HS DOMINIQUE Stop: 11/16/18 20:59 Last Admin: 09/27/18 21:06 Dose: Not Given Sodium Phosphate (Fleet Enema) 135 ml RC Q48H PRN PRN Reason: IF DULCOLAX INEFFECTIVE Stop: 11/16/18 19:17 Zolpidem Tartrate (Ambien) 5 mg PO HS PRN PRN Reason: Insomnia Stop: 11/16/18 20:59 Last Admin: 09/26/18 20:36 Dose: 5 mg General: Alert, No acute distress HEENT: Atraumatic, PERRLA, EOMI Neck: Supple Cardiovascular: Regular rate Lungs: Clear to auscultation Psych/Mental Status: Other (pt. confused) Assessment/Plan - Problem List Patient Problems: All Active Problems HALLUCINATIONS AND GROIN RASH (Acute) - Assessment Assessment: psychosis bipolar disorder h/o htn h/o seizures h/o thyroid disorder - Plan Plan: as per psych will monitor Nutritional Asmnt/Malnutr-PDOC - Dietary Evaluation Malnutrition Findings (Please click <Entered> for more info): Nutritional Asmnt/Malnutrition Start: 09/19/18 12: 47 Text: Status: Complete Freq: Protocol: Document 09/19/18 12:47 [email or web address] (Rec: 09/19/18 13:05 [email or web address]) Nutritional Asmnt/Malnutrition Patient General Information Nutritional Screening Moderate Risk Consult Diagnosis psychosis Pertinent Medical Hx/Surgical Hx HTN, seizures, thyroid disorder, schizophrenia, bipolar Subjective Information Consult received for wounds. Pt seen sleeping in bed at time of visit. PO intake is 25 -75% per EMR Current Diet Order/ Nutrition Support regular Pertinent Medications colace, synthroid, theragran, protonix, seroquel, ambien Pertinent Labs 09/17 glucose 100, Na 135, potassium 3.2, LDL 56, HDL 95 Nutritional Hx/Data Height 1.57 m Height (Calculated Centimeters) 157.5 Current Weight (lbs) 42.638 kg Weight (Calculated Kilograms) 42.6 Weight (Calculated Grams) 86999.7 [place] Body Weight 110 Body Mass Index (BMI) 17.2 Weight Status Underweight GI Symptoms GI Symptoms None Last BM not indicated Difficult in: None Food Allergies No Skin Integrity/Comment: right lower extremity wounds jim 16 Current %PO Fair (50-74%) Estimated Nutritional Goals BEE in Kcals: Using Current wt Calories/Kcals/Kg 27-32 Kcals Calculated 8766-9028 Protein: Using Current wt Protein g/k-1.2 Protein Calculated 42-51 Fluid: ml 5467-4048 Nutritional Problem 1. Problem Problem underweight Etiology possible inadequate calorie- protein intake Signs/Symptoms: BMI 17.2 and PO intake 25-75% per EMR Malnutrition Alert Is there a minimum of two criteria No selected? Query Text:Check all the applicable criteria. A minimum of two criteria are recommended for diagnosis of either severe or non-severe malnutrition. Malnutrition Related to Morbid Obesity Malnutrition related to morbid obesity No Intervention/Recommendation Comments 1. Continue with regular diet as ordered. 2. Consider adding supplements for extra calories and wound healing. 3. Monitor PO intake, wt, labs and skin integrity 4. F/U as moderate risk in 3-5 days, 09/22-09/24 Expected Outcomes/Goals Expected Outcomes/Goals Goal: PO intake to meet at least 75% of nutritional needs , improved labs and skin integrity. Reviewed by Sharyn Krause RD
--- NOTE | 2018-09-29 00:52 | Progress Notes ---
DATE: 09/28/2018 Case was discussed with staff of the patient. Continues to have poor insight. Looking disheveled, internally preoccupied, easily agitated, confused at times. I will be increasing her Seroquel to 37.5 mg twice a day. No side effects with the medication, no sedation, no nausea, no extrapyramidal symptoms. We will continue outpatient group therapy, milieu therapy, and adjust medications as needed. JOB# [id number]
[2018-09-29] MEDS: Multivitamin Tab PO SCH (09:54)
[2018-09-29] MEDS: Levothyroxine 0.075 Mg Tab PO SCH (09:54)
[2018-09-29] MEDS: Pantoprazole 40 mg EC Tab PO SCH (09:55)
--- NOTE | 2018-09-29 19:52 | General Progress Note ---
Objective - Results Result Diagrams: 09/17/18 13:00 09/17/18 13:00 Recent Labs: Laboratory Last Values WBC 10.3 Th/cmm (4.8-10.8) 09/17/18 13:00 RBC 4.29 Mil/cmm (3.80-5.20) 09/17/18 13:00 Hgb 13.8 gm/dL (12-16) 09/17/18 13:00 Hct 39.9 % (41.0-60) L 09/17/18 13:00 MCV 93.1 fl (81-100) 09/17/18 13:00 MCH 32.3 pg (27.0-31.0) H 09/17/18 13:00 MCHC Differential 34.7 pg (28.0-36.0) 09/17/18 13:00 RDW 11.9 % (11.5-20.0) 09/17/18 13:00 Plt Count 342 Th/cmm (150-400) 09/17/18 13:00 MPV 7.4 fl 09/17/18 13:00 Neutrophils % 70.5 % (40.0-80.0) 09/17/18 13:00 Lymphocytes % 15.1 % (20.0-50.0) L 09/17/18 13:00 Monocytes % 12.7 % (2.0-10.0) H 09/17/18 13:00 Eosinophils % 1.1 % (0.0-5.0) 09/17/18 13:00 Basophils % 0.6 % (0.0-2.0) 09/17/18 13:00 Sodium 135 mEq/L (136-145) L 09/17/18 13:00 Potassium 3.2 mEq/L (3.5-5.1) L 09/17/18 13:00 Chloride 98 mEq/L (98-107) 09/17/18 13:00 Carbon Dioxide 27.6 mEq/L (21.0-31.0) 09/17/18 13:00 Anion Gap 12.6 (7.0-16.0) 09/17/18 13:00 BUN 7 mg/dL (7-25) 09/17/18 13:00 Creatinine 0.6 mg/dL (0.6-1.2) 09/17/18 13:00 Est GFR ( Amer) TNP 09/17/18 13:00 Est GFR (Non-Af Amer) TNP 09/17/18 13:00 BUN/Creatinine Ratio 11.7 09/17/18 13:00 Glucose 100 mg/dL (70-105) 09/17/18 13:00 Calcium 9.4 mg/dL (8.6-10.3) 09/17/18 13:00 Total Bilirubin 0.4 mg/dL (0.3-1.0) 09/17/18 13:00 AST 16 U/L (13-39) 09/17/18 13:00 ALT 15 U/L (7-52) 09/17/18 13:00 Alkaline Phosphatase 58 U/L (34-104) 09/17/18 13:00 Troponin I 0.01 ng/mL (0.01-0.05) 09/17/18 13:00 Total Protein 6.8 gm/dL (6.0-8.3) 09/17/18 13:00 Albumin 3.7 gm/dL (3.7-5.3) 09/17/18 13:00 Globulin 3.1 gm/dL 09/17/18 13:00 Albumin/Globulin Ratio 1.2 (1.0-1.8) 09/17/18 13:00 Triglycerides 52 mg/dL (<150) 09/17/18 13:00 Cholesterol 186 mg/dL (<200) 09/17/18 13:00 LDL Cholesterol Direct 56 mg/dL (75-193) L 09/17/18 13:00 HDL Cholesterol 95 mg/dL (23-92) H 09/17/18 13:00 TSH 2.25 uIU/ml (0.34-5.60) 09/17/18 13:00 Urine Source CLEAN C 09/17/18 13:20 Urine Color YELLOW 09/17/18 13:20 Urine Clarity CLEAR (CLEAR) 09/17/18 13:20 Urine pH 7.0 (4.6 - 8.0) 09/17/18 13:20 Ur Specific [place] 1.020 (1.005-1.030) 09/17/18 13:20 Urine Protein 30 mg/dL (NEGATIVE) H 09/17/18 13:20 Urine Glucose (UA) >=1000 mg/dL (NEGATIVE) H 09/17/18 13:20 Urine Ketones NEGATIVE mg/dL (NEGATIVE) 09/17/18 13:20 Urine Blood NEGATIVE (NEGATIVE) 09/17/18 13:20 Urine Nitrate NEGATIVE (NEGATIVE) 09/17/18 13:20 Urine Bilirubin NEGATIVE (NEGATIVE) 09/17/18 13:20 Urine Urobilinogen 0.2 E.U./dL (0.2 - 1.0) 09/17/18 13:20 Ur Leukocyte Esterase NEGATIVE (NEGATIVE) 09/17/18 13:20 Urine RBC NONE SEEN /hpf (0-5) 09/17/18 13:20 Urine WBC 0-2 /hpf (0-5) 09/17/18 13:20 Ur Epithelial Cells NONE SEEN /lpf (FEW) 09/17/18 13:20 Urine Bacteria NONE SEEN /hpf (NONE SEEN) 09/17/18 13:20 Salicylates < 25.0 mg/L (30.0-100.0) L 09/17/18 13:00 Urine Opiates Screen NEGATIVE (NEGATIVE) 09/17/18 13:20 Urine Methadone Screen NEGATIVE (NEGATIVE) 09/17/18 13:20 Acetaminophen < 10.0 ug/mL (10.0-30.0) L 09/17/18 13:00 Ur Barbiturates Screen NEGATIVE (NEGATIVE) 09/17/18 13:20 Ur Tricyclics Screen NEGATIVE (NEGATIVE) 09/17/18 13:20 Ur Phencyclidine Scrn NEGATIVE (NEGATIVE) 09/17/18 13:20 Amphetamines Screen NEGATIVE (NEGATIVE) 09/17/18 13:20 U Methamphetamines Scrn NEGATIVE (NEGATIVE) 09/17/18 13:20 U Benzodiazepines Scrn NEGATIVE (NEGATIVE) 09/17/18 13:20 U Cocaine Metab Screen NEGATIVE (NEGATIVE) 09/17/18 13:20 U Cannabinoids Screen NEGATIVE (NEGATIVE) 09/17/18 13:20 Ethyl Alcohol < 10 mg/dL (0-10) 09/17/18 13:00 RPR NONREACTIVE (NONREACTIVE) 09/17/18 13:00 - Physical Exam Vitals and I&O: Vital Signs Temp 99.0 F 09/29/18 14:00 Pulse 94 09/29/18 14:00 Resp 18 09/29/18 15:05 BP 114/65 09/29/18 14:00 Pulse Ox 98 09/29/18 14:00 Intake & Output 09/29/18 09/29/18 09/30/18 06:59 18:59 06:59 Intake Total 620 800 Balance 620 800 Intake: Oral 620 800 Other: # Voids 2 3 # Bowel Movements 1 Active Medications: Current Medications Acetaminophen (Tylenol) 650 mg PO Q4H PRN PRN Reason: Mild Pain / Temp above 100 Stop: 11/16/18 14:58 Acetaminophen (Tylenol Extra Strength) 1,000 mg PO Q8H PRN PRN Reason: MOD/SEVERE PAIN Stop: 11/16/18 19:17 Al Hydrox/Mg Hydrox/Simethicone (Maalox) 30 ml PO Q4H PRN PRN Reason: GI DISTRESS Stop: 11/16/18 15:59 Bisacodyl (Dulcolax 10 Mg Supp) 10 mg RC DAILY PRN PRN Reason: IF MOM INEFFECTIVE Stop: 11/16/18 19:17 Brimonidine Tartrate (Alphagan 0.2% Ophth Soln) 1 drop EACH EYE BID [facility] Stop: 11/17/18 08:59 Last Admin: 09/29/18 16:53 Dose: 1 drop Diphenhydramine HCl (Benadryl) 50 mg PO TID PRN PRN Reason: Itching Stop: 11/16/18 23:27 Last Admin: 09/21/18 02:50 Dose: 50 mg Docusate Sodium (Colace) 200 mg PO HS DOMINIQUE Stop: 11/16/18 21:26 Last Admin: 09/28/18 20:48 Dose: 200 mg Donepezil HCl (Aricept) 5 mg PO HS DOMINIQUE Stop: 11/17/18 20:59 Last Admin: 09/28/18 20:48 Dose: 5 mg Latanoprost (Xalatan 0.005% Ophth Soln) 1 drop EACH EYE HS [facility] Stop: 11/16/18 20:59 Last Admin: 09/28/18 20:48 Dose: 1 drop Levothyroxine Sodium (Synthroid) 0.075 mg PO DAILY DOMINIQUE Stop: 11/17/18 08:59 Last Admin: 09/29/18 09:54 Dose: 0.075 mg Lisinopril (Zestril) 10 mg PO DAILY [facility] Stop: 11/17/18 08:59 Last Admin: 09/29/18 09:55 Dose: 10 mg Lorazepam (Ativan) 0.5 mg PO Q4H PRN; Protocol PRN Reason: Agitation Stop: 11/16/18 15:59 Last Admin: 09/29/18 16:52 Dose: 0.5 mg Magnesium Hydroxide (Milk Of Magnesia) 30 ml PO HS PRN PRN Reason: Constipation Stop: 11/16/18 19:17 Multivitamins/Vitamin C (Theragran) 1 tab PO DAILY DOMINIQUE Stop: 11/17/18 08:59 Last Admin: 09/29/18 09:54 Dose: 1 tab Naproxen (Naprosyn) 500 mg PO BID PRN PRN Reason: PAIN Stop: 11/16/18 19:17 Pantoprazole Sodium (Protonix) 40 mg PO DAILY [facility] Stop: 11/17/18 08:59 Last Admin: 09/29/18 09:55 Dose: 40 mg Quetiapine Fumarate (Seroquel) 37.5 mg PO BID [facility]; Protocol Stop: 11/27/18 16:59 Last Admin: 09/29/18 16:52 Dose: 37.5 mg Senna (Senna) 8.6 mg PO HS [facility] Stop: 11/16/18 20:59 Last Admin: 09/28/18 20:48 Dose: 8.6 mg Sodium Phosphate (Fleet Enema) 135 ml RC Q48H PRN PRN Reason: IF DULCOLAX INEFFECTIVE Stop: 11/16/18 19:17 Zolpidem Tartrate (Ambien) 5 mg PO HS PRN PRN Reason: Insomnia Stop: 11/16/18 20:59 Last Admin: 09/26/18 20:36 Dose: 5 mg General: Alert, No acute distress HEENT: Atraumatic, PERRLA, EOMI Neck: Supple Cardiovascular: Regular rate Lungs: Clear to auscultation Psych/Mental Status: Other (pt. confused) Assessment/Plan - Problem List Patient Problems: All Active Problems HALLUCINATIONS AND GROIN RASH (Acute) - Assessment Assessment: psychosis bipolar disorder h/o htn h/o seizures h/o thyroid disorder - Plan Plan: as per psych will monitor Nutritional Asmnt/Malnutr-PDOC - Dietary Evaluation Malnutrition Findings (Please click <Entered> for more info): Nutritional Asmnt/Malnutrition Start: 09/19/18 12: 47 Text: Status: Complete Freq: Protocol: Document 09/19/18 12:47 [email or web address] (Rec: 09/19/18 13:05 [email or web address]) Nutritional Asmnt/Malnutrition Patient General Information Nutritional Screening Moderate Risk Consult Diagnosis psychosis Pertinent Medical Hx/Surgical Hx HTN, seizures, thyroid disorder, schizophrenia, bipolar Subjective Information Consult received for wounds. Pt seen sleeping in bed at time of visit. PO intake is 25 -75% per EMR Current Diet Order/ Nutrition Support regular Pertinent Medications colace, synthroid, theragran, protonix, seroquel, ambien Pertinent Labs 09/17 glucose 100, Na 135, potassium 3.2, LDL 56, HDL 95 Nutritional Hx/Data Height 1.57 m Height (Calculated Centimeters) 157.5 Current Weight (lbs) 42.638 kg Weight (Calculated Kilograms) 42.6 Weight (Calculated Grams) 70284.7 [place] Body Weight 110 Body Mass Index (BMI) 17.2 Weight Status Underweight GI Symptoms GI Symptoms None Last BM not indicated Difficult in: None Food Allergies No Skin Integrity/Comment: right lower extremity wounds jim 16 Current %PO Fair (50-74%) Estimated Nutritional Goals BEE in Kcals: Using Current wt Calories/Kcals/Kg 27-32 Kcals Calculated 9176-4840 Protein: Using Current wt Protein g/k-1.2 Protein Calculated 42-51 Fluid: ml 7796-3063 Nutritional Problem 1. Problem Problem underweight Etiology possible inadequate calorie- protein intake Signs/Symptoms: BMI 17.2 and PO intake 25-75% per EMR Malnutrition Alert Is there a minimum of two criteria No selected? Query Text:Check all the applicable criteria. A minimum of two criteria are recommended for diagnosis of either severe or non-severe malnutrition. Malnutrition Related to Morbid Obesity Malnutrition related to morbid obesity No Intervention/Recommendation Comments 1. Continue with regular diet as ordered. 2. Consider adding supplements for extra calories and wound healing. 3. Monitor PO intake, wt, labs and skin integrity 4. F/U as moderate risk in 3-5 days, 09/22-09/24 Expected Outcomes/Goals Expected Outcomes/Goals Goal: PO intake to meet at least 75% of nutritional needs , improved labs and skin integrity. Reviewed by Sharyn Krause RD
--- NOTE | 2018-09-29 20:57 | Progress Notes ---
DATE: 09/29/2018 SUBJECTIVE: Case was discussed with staff of the patient, reviewed records. The patient continues to be easily agitated and confused. She believes this is October. She continues to have poor insight. She tolerated increase in Seroquel with no side effects, no sedation, no nausea, and no extrapyramidal symptoms. We will continue to work with the patient in group therapy, milieu therapy, and adjust the medications as needed. JOB# [id number]
[2018-09-30] MEDS: Levothyroxine 0.075 Mg Tab PO SCH (09:00)
[2018-09-30] MEDS: Multivitamin Tab PO SCH (09:00)
[2018-09-30] MEDS: Pantoprazole 40 mg EC Tab PO SCH (09:01)
--- NOTE | 2018-09-30 16:40 | Internal Medicine Prog Note ---
Internal Medicine Subjective - Subjective Patient seen and examined:: chart reviewed Patient is:: awake, other (confused ) Per staff patient has:: no adverse event Internal Medicine Objective - Results Result Diagrams: 09/17/18 13:00 09/17/18 13:00 Recent Labs: Laboratory Last Values WBC 10.3 Th/cmm (4.8-10.8) 09/17/18 13:00 RBC 4.29 Mil/cmm (3.80-5.20) 09/17/18 13:00 Hgb 13.8 gm/dL (12-16) 09/17/18 13:00 Hct 39.9 % (41.0-60) L 09/17/18 13:00 MCV 93.1 fl (81-100) 09/17/18 13:00 MCH 32.3 pg (27.0-31.0) H 09/17/18 13:00 MCHC Differential 34.7 pg (28.0-36.0) 09/17/18 13:00 RDW 11.9 % (11.5-20.0) 09/17/18 13:00 Plt Count 342 Th/cmm (150-400) 09/17/18 13:00 MPV 7.4 fl 09/17/18 13:00 Neutrophils % 70.5 % (40.0-80.0) 09/17/18 13:00 Lymphocytes % 15.1 % (20.0-50.0) L 09/17/18 13:00 Monocytes % 12.7 % (2.0-10.0) H 09/17/18 13:00 Eosinophils % 1.1 % (0.0-5.0) 09/17/18 13:00 Basophils % 0.6 % (0.0-2.0) 09/17/18 13:00 Sodium 135 mEq/L (136-145) L 09/17/18 13:00 Potassium 3.2 mEq/L (3.5-5.1) L 09/17/18 13:00 Chloride 98 mEq/L (98-107) 09/17/18 13:00 Carbon Dioxide 27.6 mEq/L (21.0-31.0) 09/17/18 13:00 Anion Gap 12.6 (7.0-16.0) 09/17/18 13:00 BUN 7 mg/dL (7-25) 09/17/18 13:00 Creatinine 0.6 mg/dL (0.6-1.2) 09/17/18 13:00 Est GFR ( Amer) TNP 09/17/18 13:00 Est GFR (Non-Af Amer) TNP 09/17/18 13:00 BUN/Creatinine Ratio 11.7 09/17/18 13:00 Glucose 100 mg/dL (70-105) 09/17/18 13:00 Calcium 9.4 mg/dL (8.6-10.3) 09/17/18 13:00 Total Bilirubin 0.4 mg/dL (0.3-1.0) 09/17/18 13:00 AST 16 U/L (13-39) 09/17/18 13:00 ALT 15 U/L (7-52) 09/17/18 13:00 Alkaline Phosphatase 58 U/L (34-104) 09/17/18 13:00 Troponin I 0.01 ng/mL (0.01-0.05) 09/17/18 13:00 Total Protein 6.8 gm/dL (6.0-8.3) 09/17/18 13:00 Albumin 3.7 gm/dL (3.7-5.3) 09/17/18 13:00 Globulin 3.1 gm/dL 09/17/18 13:00 Albumin/Globulin Ratio 1.2 (1.0-1.8) 09/17/18 13:00 Triglycerides 52 mg/dL (<150) 09/17/18 13:00 Cholesterol 186 mg/dL (<200) 09/17/18 13:00 LDL Cholesterol Direct 56 mg/dL (75-193) L 09/17/18 13:00 HDL Cholesterol 95 mg/dL (23-92) H 09/17/18 13:00 TSH 2.25 uIU/ml (0.34-5.60) 09/17/18 13:00 Urine Source CLEAN C 09/17/18 13:20 Urine Color YELLOW 09/17/18 13:20 Urine Clarity CLEAR (CLEAR) 09/17/18 13:20 Urine pH 7.0 (4.6 - 8.0) 09/17/18 13:20 Ur Specific [place] 1.020 (1.005-1.030) 09/17/18 13:20 Urine Protein 30 mg/dL (NEGATIVE) H 09/17/18 13:20 Urine Glucose (UA) >=1000 mg/dL (NEGATIVE) H 09/17/18 13:20 Urine Ketones NEGATIVE mg/dL (NEGATIVE) 09/17/18 13:20 Urine Blood NEGATIVE (NEGATIVE) 09/17/18 13:20 Urine Nitrate NEGATIVE (NEGATIVE) 09/17/18 13:20 Urine Bilirubin NEGATIVE (NEGATIVE) 09/17/18 13:20 Urine Urobilinogen 0.2 E.U./dL (0.2 - 1.0) 09/17/18 13:20 Ur Leukocyte Esterase NEGATIVE (NEGATIVE) 09/17/18 13:20 Urine RBC NONE SEEN /hpf (0-5) 09/17/18 13:20 Urine WBC 0-2 /hpf (0-5) 09/17/18 13:20 Ur Epithelial Cells NONE SEEN /lpf (FEW) 09/17/18 13:20 Urine Bacteria NONE SEEN /hpf (NONE SEEN) 09/17/18 13:20 Salicylates < 25.0 mg/L (30.0-100.0) L 09/17/18 13:00 Urine Opiates Screen NEGATIVE (NEGATIVE) 09/17/18 13:20 Urine Methadone Screen NEGATIVE (NEGATIVE) 09/17/18 13:20 Acetaminophen < 10.0 ug/mL (10.0-30.0) L 09/17/18 13:00 Ur Barbiturates Screen NEGATIVE (NEGATIVE) 09/17/18 13:20 Ur Tricyclics Screen NEGATIVE (NEGATIVE) 09/17/18 13:20 Ur Phencyclidine Scrn NEGATIVE (NEGATIVE) 09/17/18 13:20 Amphetamines Screen NEGATIVE (NEGATIVE) 09/17/18 13:20 U Methamphetamines Scrn NEGATIVE (NEGATIVE) 09/17/18 13:20 U Benzodiazepines Scrn NEGATIVE (NEGATIVE) 09/17/18 13:20 U Cocaine Metab Screen NEGATIVE (NEGATIVE) 09/17/18 13:20 U Cannabinoids Screen NEGATIVE (NEGATIVE) 09/17/18 13:20 Ethyl Alcohol < 10 mg/dL (0-10) 09/17/18 13:00 RPR NONREACTIVE (NONREACTIVE) 09/17/18 13:00 - Physical Exam Vitals and I&O: Vital Signs Temp 97.7 F 09/30/18 14:00 Pulse 89 09/30/18 14:00 Resp 20 09/30/18 14:00 BP 108/50 09/30/18 14:00 Pulse Ox 97 09/30/18 14:00 Intake & Output 09/29/18 09/30/18 09/30/18 18:59 06:59 18:59 Intake Total 800 180 Balance 800 180 Intake: Oral 800 180 Other: # Voids 3 2 # Bowel Movements 1 0 Active Medications: Current Medications Acetaminophen (Tylenol) 650 mg PO Q4H PRN PRN Reason: Mild Pain / Temp above 100 Stop: 11/16/18 14:58 Acetaminophen (Tylenol Extra Strength) 1,000 mg PO Q8H PRN PRN Reason: MOD/SEVERE PAIN Stop: 11/16/18 19:17 Al Hydrox/Mg Hydrox/Simethicone (Maalox) 30 ml PO Q4H PRN PRN Reason: GI DISTRESS Stop: 11/16/18 15:59 Bisacodyl (Dulcolax 10 Mg Supp) 10 mg RC DAILY PRN PRN Reason: IF MOM INEFFECTIVE Stop: 11/16/18 19:17 Brimonidine Tartrate (Alphagan 0.2% Ophth Soln) 1 drop EACH EYE BID DOMINIQUE Stop: 11/17/18 08:59 Last Admin: 09/30/18 09:35 Dose: Not Given Diphenhydramine HCl (Benadryl) 50 mg PO TID PRN PRN Reason: Itching Stop: 11/16/18 23:27 Last Admin: 09/21/18 02:50 Dose: 50 mg Docusate Sodium (Colace) 200 mg PO HS DOMINIQUE Stop: 11/16/18 21:26 Last Admin: 09/29/18 20:45 Dose: Not Given Donepezil HCl (Aricept) 5 mg PO HS DOMINIQUE Stop: 11/17/18 20:59 Last Admin: 09/29/18 20:46 Dose: Not Given Latanoprost (Xalatan 0.005% Ophth Soln) 1 drop EACH EYE HS DOMINIQUE Stop: 11/16/18 20:59 Last Admin: 09/29/18 20:46 Dose: Not Given Levothyroxine Sodium (Synthroid) 0.075 mg PO DAILY DOMINIQUE Stop: 11/17/18 08:59 Last Admin: 09/30/18 09:00 Dose: 0.075 mg Lisinopril (Zestril) 10 mg PO DAILY DOMINIQUE Stop: 11/17/18 08:59 Last Admin: 09/30/18 09:01 Dose: 10 mg Lorazepam (Ativan) 0.5 mg PO Q4H PRN; Protocol PRN Reason: Agitation Stop: 11/16/18 15:59 Last Admin: 09/30/18 09:02 Dose: 0.5 mg Magnesium Hydroxide (Milk Of Magnesia) 30 ml PO HS PRN PRN Reason: Constipation Stop: 11/16/18 19:17 Multivitamins/Vitamin C (Theragran) 1 tab PO DAILY DOMINIQUE Stop: 11/17/18 08:59 Last Admin: 09/30/18 09:00 Dose: 1 tab Naproxen (Naprosyn) 500 mg PO BID PRN PRN Reason: PAIN Stop: 11/16/18 19:17 Pantoprazole Sodium (Protonix) 40 mg PO DAILY DOMINIQUE Stop: 11/17/18 08:59 Last Admin: 09/30/18 09:01 Dose: 40 mg Quetiapine Fumarate (Seroquel) 37.5 mg PO BID DOMINIQUE; Protocol Stop: 11/27/18 16:59 Last Admin: 09/30/18 09:01 Dose: 37.5 mg Senna (Senna) 8.6 mg PO HS DOMINIQUE Stop: 11/16/18 20:59 Last Admin: 09/29/18 20:46 Dose: Not Given Sodium Phosphate (Fleet Enema) 135 ml RC Q48H PRN PRN Reason: IF DULCOLAX INEFFECTIVE Stop: 11/16/18 19:17 Zolpidem Tartrate (Ambien) 5 mg PO HS PRN PRN Reason: Insomnia Stop: 11/16/18 20:59 Last Admin: 09/26/18 20:36 Dose: 5 mg General: demented HEENT: NC/AT Neck: Supple Lungs: CTAB Cardiovascular: RRR, Normal S1, Normal S2 Abdomen: soft, non-tender Extremities: clear, edema Neurological: no change Internal Medicine Assmt/Plan - Assessment Assessment: psychosis bipolar disorder h/o htn h/o seizures h/o thyroid disorder - Plan Plan: as per psych will monitor Nutritional Asmnt/Malnutr-PDOC - Dietary Evaluation Malnutrition Findings (Please click <Entered> for more info): Nutritional Asmnt/Malnutrition Start: 09/19/18 12: 47 Text: Status: Complete Freq: Protocol: Document 09/19/18 12:47 [email or web address] (Rec: 09/19/18 13:05 [email or web address]) Nutritional Asmnt/Malnutrition Patient General Information Nutritional Screening Moderate Risk Consult Diagnosis psychosis Pertinent Medical Hx/Surgical Hx HTN, seizures, thyroid disorder, schizophrenia, bipolar Subjective Information Consult received for wounds. Pt seen sleeping in bed at time of visit. PO intake is 25 -75% per EMR Current Diet Order/ Nutrition Support regular Pertinent Medications colace, synthroid, theragran, protonix, seroquel, ambien Pertinent Labs 09/17 glucose 100, Na 135, potassium 3.2, LDL 56, HDL 95 Nutritional Hx/Data Height 1.57 m Height (Calculated Centimeters) 157.5 Current Weight (lbs) 42.638 kg Weight (Calculated Kilograms) 42.6 Weight (Calculated Grams) 52984.7 [place] Body Weight 110 Body Mass Index (BMI) 17.2 Weight Status Underweight GI Symptoms GI Symptoms None Last BM not indicated Difficult in: None Food Allergies No Skin Integrity/Comment: right lower extremity wounds jim 16 Current %PO Fair (50-74%) Estimated Nutritional Goals BEE in Kcals: Using Current wt Calories/Kcals/Kg 27-32 Kcals Calculated 5176-1948 Protein: Using Current wt Protein g/k-1.2 Protein Calculated 42-51 Fluid: ml 2579-8771 Nutritional Problem 1. Problem Problem underweight Etiology possible inadequate calorie- protein intake Signs/Symptoms: BMI 17.2 and PO intake 25-75% per EMR Malnutrition Alert Is there a minimum of two criteria No selected? Query Text:Check all the applicable criteria. A minimum of two criteria are recommended for diagnosis of either severe or non-severe malnutrition. Malnutrition Related to Morbid Obesity Malnutrition related to morbid obesity No Intervention/Recommendation Comments 1. Continue with regular diet as ordered. 2. Consider adding supplements for extra calories and wound healing. 3. Monitor PO intake, wt, labs and skin integrity 4. F/U as moderate risk in 3-5 days, 09/22-09/24 Expected Outcomes/Goals Expected Outcomes/Goals Goal: PO intake to meet at least 75% of nutritional needs , improved labs and skin integrity. Reviewed by Sharyn Krause RD
[2018-10-01] MEDS: Levothyroxine 0.075 Mg Tab PO SCH ×2 (09:27→09:41)
[2018-10-01] MEDS: Multivitamin Tab PO SCH ×2 (09:27→09:42)
[2018-10-01] MEDS: Pantoprazole 40 mg EC Tab PO SCH ×2 (09:27→09:41)
--- NOTE | 2018-10-01 13:24 | Internal Medicine Prog Note ---
Internal Medicine Subjective - Subjective Service Date: 10/01/18 Patient is:: awake, other (confused ) Per staff patient has:: no adverse event Internal Medicine Objective - Results Result Diagrams: 09/17/18 13:00 09/17/18 13:00 Recent Labs: Laboratory Last Values WBC 10.3 Th/cmm (4.8-10.8) 09/17/18 13:00 RBC 4.29 Mil/cmm (3.80-5.20) 09/17/18 13:00 Hgb 13.8 gm/dL (12-16) 09/17/18 13:00 Hct 39.9 % (41.0-60) L 09/17/18 13:00 MCV 93.1 fl (81-100) 09/17/18 13:00 MCH 32.3 pg (27.0-31.0) H 09/17/18 13:00 MCHC Differential 34.7 pg (28.0-36.0) 09/17/18 13:00 RDW 11.9 % (11.5-20.0) 09/17/18 13:00 Plt Count 342 Th/cmm (150-400) 09/17/18 13:00 MPV 7.4 fl 09/17/18 13:00 Neutrophils % 70.5 % (40.0-80.0) 09/17/18 13:00 Lymphocytes % 15.1 % (20.0-50.0) L 09/17/18 13:00 Monocytes % 12.7 % (2.0-10.0) H 09/17/18 13:00 Eosinophils % 1.1 % (0.0-5.0) 09/17/18 13:00 Basophils % 0.6 % (0.0-2.0) 09/17/18 13:00 Sodium 135 mEq/L (136-145) L 09/17/18 13:00 Potassium 3.2 mEq/L (3.5-5.1) L 09/17/18 13:00 Chloride 98 mEq/L (98-107) 09/17/18 13:00 Carbon Dioxide 27.6 mEq/L (21.0-31.0) 09/17/18 13:00 Anion Gap 12.6 (7.0-16.0) 09/17/18 13:00 BUN 7 mg/dL (7-25) 09/17/18 13:00 Creatinine 0.6 mg/dL (0.6-1.2) 09/17/18 13:00 Est GFR ( Amer) TNP 09/17/18 13:00 Est GFR (Non-Af Amer) TNP 09/17/18 13:00 BUN/Creatinine Ratio 11.7 09/17/18 13:00 Glucose 100 mg/dL (70-105) 09/17/18 13:00 Calcium 9.4 mg/dL (8.6-10.3) 09/17/18 13:00 Total Bilirubin 0.4 mg/dL (0.3-1.0) 09/17/18 13:00 AST 16 U/L (13-39) 09/17/18 13:00 ALT 15 U/L (7-52) 09/17/18 13:00 Alkaline Phosphatase 58 U/L (34-104) 09/17/18 13:00 Troponin I 0.01 ng/mL (0.01-0.05) 09/17/18 13:00 Total Protein 6.8 gm/dL (6.0-8.3) 09/17/18 13:00 Albumin 3.7 gm/dL (3.7-5.3) 09/17/18 13:00 Globulin 3.1 gm/dL 09/17/18 13:00 Albumin/Globulin Ratio 1.2 (1.0-1.8) 09/17/18 13:00 Triglycerides 52 mg/dL (<150) 09/17/18 13:00 Cholesterol 186 mg/dL (<200) 09/17/18 13:00 LDL Cholesterol Direct 56 mg/dL (75-193) L 09/17/18 13:00 HDL Cholesterol 95 mg/dL (23-92) H 09/17/18 13:00 TSH 2.25 uIU/ml (0.34-5.60) 09/17/18 13:00 Urine Source CLEAN C 09/17/18 13:20 Urine Color YELLOW 09/17/18 13:20 Urine Clarity CLEAR (CLEAR) 09/17/18 13:20 Urine pH 7.0 (4.6 - 8.0) 09/17/18 13:20 Ur Specific [place] 1.020 (1.005-1.030) 09/17/18 13:20 Urine Protein 30 mg/dL (NEGATIVE) H 09/17/18 13:20 Urine Glucose (UA) >=1000 mg/dL (NEGATIVE) H 09/17/18 13:20 Urine Ketones NEGATIVE mg/dL (NEGATIVE) 09/17/18 13:20 Urine Blood NEGATIVE (NEGATIVE) 09/17/18 13:20 Urine Nitrate NEGATIVE (NEGATIVE) 09/17/18 13:20 Urine Bilirubin NEGATIVE (NEGATIVE) 09/17/18 13:20 Urine Urobilinogen 0.2 E.U./dL (0.2 - 1.0) 09/17/18 13:20 Ur Leukocyte Esterase NEGATIVE (NEGATIVE) 09/17/18 13:20 Urine RBC NONE SEEN /hpf (0-5) 09/17/18 13:20 Urine WBC 0-2 /hpf (0-5) 09/17/18 13:20 Ur Epithelial Cells NONE SEEN /lpf (FEW) 09/17/18 13:20 Urine Bacteria NONE SEEN /hpf (NONE SEEN) 09/17/18 13:20 Salicylates < 25.0 mg/L (30.0-100.0) L 09/17/18 13:00 Urine Opiates Screen NEGATIVE (NEGATIVE) 09/17/18 13:20 Urine Methadone Screen NEGATIVE (NEGATIVE) 09/17/18 13:20 Acetaminophen < 10.0 ug/mL (10.0-30.0) L 09/17/18 13:00 Ur Barbiturates Screen NEGATIVE (NEGATIVE) 09/17/18 13:20 Ur Tricyclics Screen NEGATIVE (NEGATIVE) 09/17/18 13:20 Ur Phencyclidine Scrn NEGATIVE (NEGATIVE) 09/17/18 13:20 Amphetamines Screen NEGATIVE (NEGATIVE) 09/17/18 13:20 U Methamphetamines Scrn NEGATIVE (NEGATIVE) 09/17/18 13:20 U Benzodiazepines Scrn NEGATIVE (NEGATIVE) 09/17/18 13:20 U Cocaine Metab Screen NEGATIVE (NEGATIVE) 09/17/18 13:20 U Cannabinoids Screen NEGATIVE (NEGATIVE) 09/17/18 13:20 Ethyl Alcohol < 10 mg/dL (0-10) 09/17/18 13:00 RPR NONREACTIVE (NONREACTIVE) 09/17/18 13:00 - Physical Exam Vitals and I&O: Vital Signs Temp 98.4 F 09/30/18 20:20 Pulse 101 09/30/18 20:20 Resp 20 09/30/18 20:20 BP 153/77 09/30/18 20:20 Pulse Ox 97 09/30/18 20:20 Intake & Output 09/30/18 10/01/18 10/01/18 18:59 06:59 18:59 Intake Total 800 240 Balance 800 240 Intake: Oral 800 240 Other: # Voids 3 1 # Bowel Movements 1 Stool Characteristics Formed Brown Active Medications: Current Medications Acetaminophen (Tylenol) 650 mg PO Q4H PRN PRN Reason: Mild Pain / Temp above 100 Stop: 11/16/18 14:58 Acetaminophen (Tylenol Extra Strength) 1,000 mg PO Q8H PRN PRN Reason: MOD/SEVERE PAIN Stop: 11/16/18 19:17 Al Hydrox/Mg Hydrox/Simethicone (Maalox) 30 ml PO Q4H PRN PRN Reason: GI DISTRESS Stop: 11/16/18 15:59 Bisacodyl (Dulcolax 10 Mg Supp) 10 mg RC DAILY PRN PRN Reason: IF MOM INEFFECTIVE Stop: 11/16/18 19:17 Brimonidine Tartrate (Alphagan 0.2% Ophth Soln) 1 drop EACH EYE BID DOMINIQUE Stop: 11/17/18 08:59 Last Admin: 10/01/18 09:41 Dose: Not Given Diphenhydramine HCl (Benadryl) 50 mg PO TID PRN PRN Reason: Itching Stop: 11/16/18 23:27 Last Admin: 09/21/18 02:50 Dose: 50 mg Docusate Sodium (Colace) 200 mg PO HS DOMINIQUE Stop: 11/16/18 21:26 Last Admin: 09/30/18 20:36 Dose: 200 mg Donepezil HCl (Aricept) 5 mg PO HS DOMINIQUE Stop: 11/17/18 20:59 Last Admin: 09/30/18 20:36 Dose: 5 mg Latanoprost (Xalatan 0.005% Ophth Soln) 1 drop EACH EYE HS DOMINIQUE Stop: 11/16/18 20:59 Last Admin: 09/30/18 20:37 Dose: 1 drop Levothyroxine Sodium (Synthroid) 0.075 mg PO DAILY DOMINIQUE Stop: 11/17/18 08:59 Last Admin: 10/01/18 09:41 Dose: Not Given Lisinopril (Zestril) 10 mg PO DAILY [facility] Stop: 11/17/18 08:59 Last Admin: 10/01/18 09:27 Dose: Not Given Lorazepam (Ativan) 0.5 mg PO Q4H PRN; Protocol PRN Reason: Agitation Stop: 11/16/18 15:59 Last Admin: 09/30/18 09:02 Dose: 0.5 mg Magnesium Hydroxide (Milk Of Magnesia) 30 ml PO HS PRN PRN Reason: Constipation Stop: 11/16/18 19:17 Multivitamins/Vitamin C (Theragran) 1 tab PO DAILY DOMINIQUE Stop: 11/17/18 08:59 Last Admin: 10/01/18 09:42 Dose: Not Given Naproxen (Naprosyn) 500 mg PO BID PRN PRN Reason: PAIN Stop: 11/16/18 19:17 Pantoprazole Sodium (Protonix) 40 mg PO DAILY [facility] Stop: 11/17/18 08:59 Last Admin: 10/01/18 09:41 Dose: Not Given Quetiapine Fumarate (Seroquel) 50 mg PO BID [facility]; Protocol Stop: 11/30/18 16:59 Senna (Senna) 8.6 mg PO HS [facility] Stop: 11/16/18 20:59 Last Admin: 09/30/18 20:36 Dose: 8.6 mg Sodium Phosphate (Fleet Enema) 135 ml RC Q48H PRN PRN Reason: IF DULCOLAX INEFFECTIVE Stop: 11/16/18 19:17 Zolpidem Tartrate (Ambien) 5 mg PO HS PRN PRN Reason: Insomnia Stop: 11/16/18 20:59 Last Admin: 09/26/18 20:36 Dose: 5 mg General: demented HEENT: NC/AT Neck: Supple Lungs: CTAB Cardiovascular: RRR, Normal S1, Normal S2 Abdomen: soft, non-tender Extremities: clear, edema Neurological: no change Internal Medicine Assmt/Plan - Assessment Assessment: psychosis bipolar disorder h/o htn h/o seizures h/o thyroid disorder - Plan Plan: seizure precautions cpm - Nutritional Asmnt/Malnutr-PDOC - Dietary Evaluation Malnutrition Findings (Please click <Entered> for more info): Nutritional Asmnt/Malnutrition Start: 09/19/18 12: 47 Text: Status: Complete Freq: Protocol: Document 09/19/18 12:47 [email or web address] (Rec: 09/19/18 13:05 [email or web address]) Nutritional Asmnt/Malnutrition Patient General Information Nutritional Screening Moderate Risk Consult Diagnosis psychosis Pertinent Medical Hx/Surgical Hx HTN, seizures, thyroid disorder, schizophrenia, bipolar Subjective Information Consult received for wounds. Pt seen sleeping in bed at time of visit. PO intake is 25 -75% per EMR Current Diet Order/ Nutrition Support regular Pertinent Medications colace, synthroid, theragran, protonix, seroquel, ambien Pertinent Labs 09/17 glucose 100, Na 135, potassium 3.2, LDL 56, HDL 95 Nutritional Hx/Data Height 5 ft 2 in Height (Calculated Centimeters) 157.5 Current Weight (lbs) 94 lb Weight (Calculated Kilograms) 42.6 Weight (Calculated Grams) 05418.7 [place] Body Weight 110 Body Mass Index (BMI) 17.2 Weight Status Underweight GI Symptoms GI Symptoms None Last BM not indicated Difficult in: None Food Allergies No Skin Integrity/Comment: right lower extremity wounds jim 16 Current %PO Fair (50-74%) Estimated Nutritional Goals BEE in Kcals: Using Current wt Calories/Kcals/Kg 27-32 Kcals Calculated 6092-4699 Protein: Using Current wt Protein g/k-1.2 Protein Calculated 42-51 Fluid: ml 4296-2017 Nutritional Problem 1. Problem Problem underweight Etiology possible inadequate calorie- protein intake Signs/Symptoms: BMI 17.2 and PO intake 25-75% per EMR Malnutrition Alert Is there a minimum of two criteria No selected? Query Text:Check all the applicable criteria. A minimum of two criteria are recommended for diagnosis of either severe or non-severe malnutrition. Malnutrition Related to Morbid Obesity Malnutrition related to morbid obesity No Intervention/Recommendation Comments 1. Continue with regular diet as ordered. 2. Consider adding supplements for extra calories and wound healing. 3. Monitor PO intake, wt, labs and skin integrity 4. F/U as moderate risk in 3-5 days, 09/22-09/24 Expected Outcomes/Goals Expected Outcomes/Goals Goal: PO intake to meet at least 75% of nutritional needs , improved labs and skin integrity. Reviewed by Sharyn Krause RD
--- NOTE | 2018-10-01 21:18 | Progress Notes ---
DATE: SUBJECTIVE: Chart reviewed and the patient interviewed. Also discussed the patient's condition with the staff and reviewed records and labs. The patient is still paranoid and easily agitated. The patient also refused to take her medications for the first time last night, although the patient prior to that was compliant with taking her medications. When I denied and she refused to give any reason and denied that she used to take the medications. The patient said that she would take her medications. The patient continued to take Aricept and also continued to take Seroquel in a dose of 37.5 mg twice a day with no side effects. ASSESSMENT: The patient is still forgetful, irritable, and agitated. TREATMENT PLAN: Continue to monitor her behavior and her condition closely and continue to work on her compliance with taking medications and her confusion. JOB# [id number]
--- NOTE | 2018-10-01 23:39 | Progress Notes ---
DATE: 10/01/2018 Case was discussed with staff of the patient. The patient continues to be easily agitated, confused. She sometimes can tell the date and sometimes she cannot. She has been selective with her medication. She continues to need redirection. Continues to be unpredictable, impulsive, not ready to go to a lesser level of care and I did initiate her on Aricept because of her dementing process and I did increase her Seroquel to 37.5 mg twice a day. I will be increasing the dose further to 50 mg twice a day and she also tends not to take it on a regular basis. No side effects with the medication, no sedation, no nausea, no extrapyramidal symptoms. We will continue the patient in group therapy, milieu therapy, and adjust her medication as needed. JOB# [id number]
[2018-10-02] MEDS: Levothyroxine 0.075 Mg Tab PO SCH (09:35)
[2018-10-02] MEDS: Pantoprazole 40 mg EC Tab PO SCH (09:35)
[2018-10-02] MEDS: Multivitamin Tab PO SCH (09:36)
--- NOTE | 2018-10-02 12:09 | Internal Medicine Prog Note ---
Internal Medicine Subjective - Subjective Patient seen and examined:: chart reviewed Patient is:: awake, agitated, confused, other Per staff patient has:: no adverse event Internal Medicine Objective - Results Result Diagrams: 09/17/18 13:00 09/17/18 13:00 Recent Labs: Laboratory Last Values WBC 10.3 Th/cmm (4.8-10.8) 09/17/18 13:00 RBC 4.29 Mil/cmm (3.80-5.20) 09/17/18 13:00 Hgb 13.8 gm/dL (12-16) 09/17/18 13:00 Hct 39.9 % (41.0-60) L 09/17/18 13:00 MCV 93.1 fl (81-100) 09/17/18 13:00 MCH 32.3 pg (27.0-31.0) H 09/17/18 13:00 MCHC Differential 34.7 pg (28.0-36.0) 09/17/18 13:00 RDW 11.9 % (11.5-20.0) 09/17/18 13:00 Plt Count 342 Th/cmm (150-400) 09/17/18 13:00 MPV 7.4 fl 09/17/18 13:00 Neutrophils % 70.5 % (40.0-80.0) 09/17/18 13:00 Lymphocytes % 15.1 % (20.0-50.0) L 09/17/18 13:00 Monocytes % 12.7 % (2.0-10.0) H 09/17/18 13:00 Eosinophils % 1.1 % (0.0-5.0) 09/17/18 13:00 Basophils % 0.6 % (0.0-2.0) 09/17/18 13:00 Sodium 135 mEq/L (136-145) L 09/17/18 13:00 Potassium 3.2 mEq/L (3.5-5.1) L 09/17/18 13:00 Chloride 98 mEq/L (98-107) 09/17/18 13:00 Carbon Dioxide 27.6 mEq/L (21.0-31.0) 09/17/18 13:00 Anion Gap 12.6 (7.0-16.0) 09/17/18 13:00 BUN 7 mg/dL (7-25) 09/17/18 13:00 Creatinine 0.6 mg/dL (0.6-1.2) 09/17/18 13:00 Est GFR ( Amer) TNP 09/17/18 13:00 Est GFR (Non-Af Amer) TNP 09/17/18 13:00 BUN/Creatinine Ratio 11.7 09/17/18 13:00 Glucose 100 mg/dL (70-105) 09/17/18 13:00 Calcium 9.4 mg/dL (8.6-10.3) 09/17/18 13:00 Total Bilirubin 0.4 mg/dL (0.3-1.0) 09/17/18 13:00 AST 16 U/L (13-39) 09/17/18 13:00 ALT 15 U/L (7-52) 09/17/18 13:00 Alkaline Phosphatase 58 U/L (34-104) 09/17/18 13:00 Troponin I 0.01 ng/mL (0.01-0.05) 09/17/18 13:00 Total Protein 6.8 gm/dL (6.0-8.3) 09/17/18 13:00 Albumin 3.7 gm/dL (3.7-5.3) 09/17/18 13:00 Globulin 3.1 gm/dL 09/17/18 13:00 Albumin/Globulin Ratio 1.2 (1.0-1.8) 09/17/18 13:00 Triglycerides 52 mg/dL (<150) 09/17/18 13:00 Cholesterol 186 mg/dL (<200) 09/17/18 13:00 LDL Cholesterol Direct 56 mg/dL (75-193) L 09/17/18 13:00 HDL Cholesterol 95 mg/dL (23-92) H 09/17/18 13:00 TSH 2.25 uIU/ml (0.34-5.60) 09/17/18 13:00 Urine Source CLEAN C 09/17/18 13:20 Urine Color YELLOW 09/17/18 13:20 Urine Clarity CLEAR (CLEAR) 09/17/18 13:20 Urine pH 7.0 (4.6 - 8.0) 09/17/18 13:20 Ur Specific [place] 1.020 (1.005-1.030) 09/17/18 13:20 Urine Protein 30 mg/dL (NEGATIVE) H 09/17/18 13:20 Urine Glucose (UA) >=1000 mg/dL (NEGATIVE) H 09/17/18 13:20 Urine Ketones NEGATIVE mg/dL (NEGATIVE) 09/17/18 13:20 Urine Blood NEGATIVE (NEGATIVE) 09/17/18 13:20 Urine Nitrate NEGATIVE (NEGATIVE) 09/17/18 13:20 Urine Bilirubin NEGATIVE (NEGATIVE) 09/17/18 13:20 Urine Urobilinogen 0.2 E.U./dL (0.2 - 1.0) 09/17/18 13:20 Ur Leukocyte Esterase NEGATIVE (NEGATIVE) 09/17/18 13:20 Urine RBC NONE SEEN /hpf (0-5) 09/17/18 13:20 Urine WBC 0-2 /hpf (0-5) 09/17/18 13:20 Ur Epithelial Cells NONE SEEN /lpf (FEW) 09/17/18 13:20 Urine Bacteria NONE SEEN /hpf (NONE SEEN) 09/17/18 13:20 Salicylates < 25.0 mg/L (30.0-100.0) L 09/17/18 13:00 Urine Opiates Screen NEGATIVE (NEGATIVE) 09/17/18 13:20 Urine Methadone Screen NEGATIVE (NEGATIVE) 09/17/18 13:20 Acetaminophen < 10.0 ug/mL (10.0-30.0) L 09/17/18 13:00 Ur Barbiturates Screen NEGATIVE (NEGATIVE) 09/17/18 13:20 Ur Tricyclics Screen NEGATIVE (NEGATIVE) 09/17/18 13:20 Ur Phencyclidine Scrn NEGATIVE (NEGATIVE) 09/17/18 13:20 Amphetamines Screen NEGATIVE (NEGATIVE) 09/17/18 13:20 U Methamphetamines Scrn NEGATIVE (NEGATIVE) 09/17/18 13:20 U Benzodiazepines Scrn NEGATIVE (NEGATIVE) 09/17/18 13:20 U Cocaine Metab Screen NEGATIVE (NEGATIVE) 09/17/18 13:20 U Cannabinoids Screen NEGATIVE (NEGATIVE) 09/17/18 13:20 Ethyl Alcohol < 10 mg/dL (0-10) 09/17/18 13:00 RPR NONREACTIVE (NONREACTIVE) 09/17/18 13:00 - Physical Exam Vitals and I&O: Vital Signs Temp 98.6 F 10/02/18 06:28 Pulse 75 10/02/18 06:28 Resp 19 10/02/18 10:30 BP 171/83 10/02/18 06:28 Pulse Ox 97 10/02/18 06:28 Intake & Output 10/01/18 10/02/18 10/02/18 18:59 06:59 18:59 Intake Total 800 240 Balance 800 240 Intake: Oral 800 240 Other: # Voids 3 3 # Bowel Movements 1 0 Stool Characteristics Formed Brown Active Medications: Current Medications Acetaminophen (Tylenol) 650 mg PO Q4H PRN PRN Reason: Mild Pain / Temp above 100 Stop: 11/16/18 14:58 Acetaminophen (Tylenol Extra Strength) 1,000 mg PO Q8H PRN PRN Reason: MOD/SEVERE PAIN Stop: 11/16/18 19:17 Al Hydrox/Mg Hydrox/Simethicone (Maalox) 30 ml PO Q4H PRN PRN Reason: GI DISTRESS Stop: 11/16/18 15:59 Bisacodyl (Dulcolax 10 Mg Supp) 10 mg RC DAILY PRN PRN Reason: IF MOM INEFFECTIVE Stop: 11/16/18 19:17 Brimonidine Tartrate (Alphagan 0.2% Ophth Soln) 1 drop EACH EYE BID DOMINIQUE Stop: 11/17/18 08:59 Last Admin: 10/02/18 09:35 Dose: Not Given Diphenhydramine HCl (Benadryl) 50 mg PO TID PRN PRN Reason: Itching Stop: 11/16/18 23:27 Last Admin: 09/21/18 02:50 Dose: 50 mg Docusate Sodium (Colace) 200 mg PO HS DOMINIQUE Stop: 11/16/18 21:26 Last Admin: 10/01/18 20:29 Dose: Not Given Donepezil HCl (Aricept) 5 mg PO HS [facility] Stop: 11/17/18 20:59 Last Admin: 10/01/18 20:29 Dose: Not Given Latanoprost (Xalatan 0.005% Ophth Soln) 1 drop EACH EYE HS [facility] Stop: 11/16/18 20:59 Last Admin: 10/01/18 20:29 Dose: Not Given Levothyroxine Sodium (Synthroid) 0.075 mg PO DAILY DOMINIQUE Stop: 11/17/18 08:59 Last Admin: 10/02/18 09:35 Dose: Not Given Lisinopril (Zestril) 10 mg PO DAILY [facility] Stop: 11/17/18 08:59 Last Admin: 10/02/18 09:35 Dose: Not Given Lorazepam (Ativan) 0.5 mg PO Q4H PRN; Protocol PRN Reason: Agitation Stop: 11/16/18 15:59 Last Admin: 09/30/18 09:02 Dose: 0.5 mg Magnesium Hydroxide (Milk Of Magnesia) 30 ml PO HS PRN PRN Reason: Constipation Stop: 11/16/18 19:17 Multivitamins/Vitamin C (Theragran) 1 tab PO DAILY [facility] Stop: 11/17/18 08:59 Last Admin: 10/02/18 09:36 Dose: Not Given Naproxen (Naprosyn) 500 mg PO BID PRN PRN Reason: PAIN Stop: 11/16/18 19:17 Pantoprazole Sodium (Protonix) 40 mg PO DAILY [facility] Stop: 11/17/18 08:59 Last Admin: 10/02/18 09:35 Dose: Not Given Quetiapine Fumarate (Seroquel) 50 mg PO BID [facility]; Protocol Stop: 11/30/18 16:59 Last Admin: 10/02/18 09:35 Dose: Not Given Senna (Senna) 8.6 mg PO HS [facility] Stop: 11/16/18 20:59 Last Admin: 10/01/18 20:29 Dose: Not Given Sodium Phosphate (Fleet Enema) 135 ml RC Q48H PRN PRN Reason: IF DULCOLAX INEFFECTIVE Stop: 11/16/18 19:17 Zolpidem Tartrate (Ambien) 5 mg PO HS PRN PRN Reason: Insomnia Stop: 11/16/18 20:59 Last Admin: 09/26/18 20:36 Dose: 5 mg General: demented HEENT: NC/AT Neck: Supple Lungs: CTAB Cardiovascular: RRR, Normal S1, Normal S2 Abdomen: soft, non-tender Extremities: clear, edema Neurological: no change Internal Medicine Assmt/Plan - Assessment Assessment: psychosis bipolar disorder h/o htn h/o seizures h/o thyroid disorder - Plan Plan: as per psych seizure precaution will monitor Nutritional Asmnt/Malnutr-PDOC - Dietary Evaluation Malnutrition Findings (Please click <Entered> for more info): Nutritional Asmnt/Malnutrition Start: 09/19/18 12: 47 Text: Status: Complete Freq: Protocol: Document 09/19/18 12:47 [email or web address] (Rec: 09/19/18 13:05 [email or web address]) Nutritional Asmnt/Malnutrition Patient General Information Nutritional Screening Moderate Risk Consult Diagnosis psychosis Pertinent Medical Hx/Surgical Hx HTN, seizures, thyroid disorder, schizophrenia, bipolar Subjective Information Consult received for wounds. Pt seen sleeping in bed at time of visit. PO intake is 25 -75% per EMR Current Diet Order/ Nutrition Support regular Pertinent Medications colace, synthroid, theragran, protonix, seroquel, ambien Pertinent Labs 09/17 glucose 100, Na 135, potassium 3.2, LDL 56, HDL 95 Nutritional Hx/Data Height 1.57 m Height (Calculated Centimeters) 157.5 Current Weight (lbs) 42.638 kg Weight (Calculated Kilograms) 42.6 Weight (Calculated Grams) 17512.7 [place] Body Weight 110 Body Mass Index (BMI) 17.2 Weight Status Underweight GI Symptoms GI Symptoms None Last BM not indicated Difficult in: None Food Allergies No Skin Integrity/Comment: right lower extremity wounds jim 16 Current %PO Fair (50-74%) Estimated Nutritional Goals BEE in Kcals: Using Current wt Calories/Kcals/Kg 27-32 Kcals Calculated 9853-7439 Protein: Using Current wt Protein g/k-1.2 Protein Calculated 42-51 Fluid: ml 1718-7541 Nutritional Problem 1. Problem Problem underweight Etiology possible inadequate calorie- protein intake Signs/Symptoms: BMI 17.2 and PO intake 25-75% per EMR Malnutrition Alert Is there a minimum of two criteria No selected? Query Text:Check all the applicable criteria. A minimum of two criteria are recommended for diagnosis of either severe or non-severe malnutrition. Malnutrition Related to Morbid Obesity Malnutrition related to morbid obesity No Intervention/Recommendation Comments 1. Continue with regular diet as ordered. 2. Consider adding supplements for extra calories and wound healing. 3. Monitor PO intake, wt, labs and skin integrity 4. F/U as moderate risk in 3-5 days, 09/22-09/24 Expected Outcomes/Goals Expected Outcomes/Goals Goal: PO intake to meet at least 75% of nutritional needs , improved labs and skin integrity. Reviewed by Sharyn Krause RD
--- NOTE | 2018-10-02 20:37 | Discharge Summary ---
DATE OF DISCHARGE: 10/02/2018 PATIENT'S AGE: 73. SEX: Female. PHYSICIAN: Elena Apodaca MD, MPH FINAL DIAGNOSIS: PRIMARY DIAGNOSIS: Major depression, severe, recurrent, with psychotic features. SECONDARY DIAGNOSIS: Dementia, moderate, with psychotic features. REASON FOR HOSPITALIZATION: The patient was admitted to the hospital from [facility] because of increased paranoia and she was yelling and screaming and the staff there was unable to manage her and she was not able to follow any directions. HOSPITAL COURSE: The patient continued to be anxious and continue to be in irritable mood. The patient also was paranoid. She was also forgetful and needed lots of redirections. The patient was started on Seroquel and the dose adjusted to 50 mg twice a day and also she was given Aricept in a dose of 5 mg every day. Gradually, the patient was calmer and was less agitated. She was transferred back to [facility]. Physical examination of the patient showed no major medical issues with the patient. AFTER DISCHARGE PLANS: The patient returned to [facility] and plans for outpatient treatment. EXPECTED OUTCOME AFTER DISCHARGE: Fair, if the patient continues with her medications. JOB# [id number]
== END 2018-10-02 18:08 | DRG 885 ==
LOC: ER 12:36 → GERO 12:40
PROVIDERS: ADMIT Psychiatry & Neurology Psychiatry; ATTEND Psychiatry & Neurology Psychiatry
DX: F33.3 Major depressive disorder, recurrent, severe with psychotic symptoms (principal); F03.91 Unspecified dementia, unspecified severity, with behavioral disturbance; I10 Essential (primary) hypertension; G40.909 Epilepsy, unspecified, not intractable, without status epilepticus; Z82.49 Family history of ischemic heart disease and other diseases of the circulatory system; Z66 Do not resuscitate
CPT/HCPCS: 36415-UA; 80053-TC; 80061-TC; 80307; 80320-TC; 80329-TC; 81001-TC; 83036-90; 84443-TC; 84484-TC; 85025-TC; 86592-TC; 90899; 93005; G0410; Z7610